=== PATIENT | female | born 1960 | race Caucasian/White ===

== ENCOUNTER 2019-08-30 09:34 | Outpatient (CLI) | payer BC, SELFPAY ==
--- NOTE | ~2019-08-30 | XR_ITS ---
EXAMINATION: XR lg joint inject/asp add DATE: 08/30/2019 11:02 INDICATION: Left hip arthritis. TECHNIQUE: A time-out was performed to verify the patient's name, date of , and procedure to b e performed. The procedure including the risks, benefits, and alternatives was discussed with the pat ient. Risks discussed included bleeding and infection. The patient understood the risks and agreed to proceed. The skin overlying the left hip joint was prepped and draped in usual sterile fashion. An esthetic was administered with 1% lidocaine subcutaneously. A 22 G needle was advanced under fluoros copic guidance into the joint. Injection of 1 mL of Omnipaque 240 confirmed intra-articular position of the needle. Subsequently, injectate consisting of 2 mL 0.5% bupivacaine and 1 mL 80 mg/mL Depo-M edrol was instilled. The needle was removed and the entry site was cleaned and dressed. There were no immediate complications. Fluoroscopy exposure time was 0.0 minutes. The total number of images was 2. FINDINGS: Real-time fluoroscopy demonstrates the needle in the left hip joint. Patient's pain prior t o procedure:11/27. Patient's pain following the procedure: 10/27. IMPRESSION: 1. Left hip joint injection of local anesthetic and steroid with decrease in the patient's presenting pain. Reviewed, dictated and finalized at location A. IMPRESSION: 1. Left hip joint injection of local anesthetic and steroid with decrease in th e patient's presenting pain.
--- NOTE | ~2019-08-30 | XR_ITS ---
EXAMINATION: XR lg joint inject/asp w image DATE: 08/30/2019 10:58 INDICATION: Right hip arthritis. TECHNIQUE: A time-out was performed to verify the patient's name, date of , and procedure to b e performed. The procedure including the risks, benefits, and alternatives was discussed with the pat ient. Risks discussed included bleeding and infection. The patient understood the risks and agreed to proceed. The skin overlying the right hip joint was prepped and draped in usual sterile fashion. A nesthetic was administered with 1% lidocaine subcutaneously. A 22 G needle was advanced under fluoro scopic guidance into the joint. Injection of 1 mL of Omnipaque 240 confirmed intra-articular positio n of the needle. Subsequently, injectate consisting of 2 mL 0.5% bupivacaine and 1 mL 80 mg/mL Depo- Medrol was instilled. The needle was removed and the entry site was cleaned and dressed. There were no immediate complications. Fluoroscopy exposure time was 0.0 minutes. The total number of images wa s 2. FINDINGS: Real-time fluoroscopy demonstrates the needle in the right hip joint. Patient's pain prior to procedure:8/10. Patient's pain following the procedure: 10/27. IMPRESSION: 1. Right hip joint injection of local anesthetic and steroid with decrease in the patient's presentin g pain. Reviewed, dictated and finalized at location A. IMPRESSION: 1. Right hip joint injection of local anesthetic and steroid with decrease in t he patient's presenting pain.
== END 2019-08-30 09:35 | disposition home or self-care (01) ==
PROVIDERS: PCP Family Medicine; Visit Provider Orthopaedic Surgery
DX: M16.0 Bilateral primary osteoarthritis of hip (principal)
CPT/HCPCS: 20610; 77002; J1040; Q9966

== ENCOUNTER 2019-12-04 13:08 | Outpatient (CLI) | payer BC, SELFPAY ==
--- NOTE | ~2019-12-04 | XR_ITS ---
EXAMINATION: XR lg joint inject/asp add DATE: 12/04/2019 14:11 INDICATION: Left hip arthritis. TECHNIQUE: A time-out was performed to verify the patient's name, date of , and procedure to b e performed. The procedure including the risks, benefits, and alternatives was discussed with the pat ient. Risks discussed included bleeding and infection. The patient understood the risks and agreed to proceed. The skin overlying the left hip joint was prepped and draped in usual sterile fashion. An esthetic was administered with 1% lidocaine subcutaneously. A 22 G needle was advanced under fluoros copic guidance into the joint. Injection of 1 mL of Omnipaque 240 confirmed intra-articular position of the needle. Subsequently, injectate consisting of 2 mL 0.5% bupivacaine and 1 mL 80 mg/mL Depo-M edrol was instilled. The needle was removed and the entry site was cleaned and dressed. There were no immediate complications. Fluoroscopy exposure time was 0.1 minutes. The total number of images was 2. FINDINGS: Real-time fluoroscopy demonstrates the needle in the left hip joint. IMPRESSION: 1. Left hip joint injection of local anesthetic and steroid. Reviewed, dictated and finalized at location A.
--- NOTE | ~2019-12-04 | XR_ITS ---
EXAMINATION: XR lg joint inject/asp w image DATE: 12/04/2019 14:10 INDICATION: Right hip arthritis. TECHNIQUE: A time-out was performed to verify the patient's name, date of , and procedure to b e performed. The procedure including the risks, benefits, and alternatives was discussed with the pat ient. Risks discussed included bleeding and infection. The patient understood the risks and agreed to proceed. The skin overlying the right hip joint was prepped and draped in usual sterile fashion. A nesthetic was administered with 1% lidocaine subcutaneously. A 22 G needle was advanced under fluoro scopic guidance into the joint. Injection of 1 mL of Omnipaque 240 confirmed intra-articular positio n of the needle. Subsequently, injectate consisting of 2 mL 0.5% bupivacaine and 1 mL 80 mg/mL Depo- Medrol was instilled. The needle was removed and the entry site was cleaned and dressed. There were no immediate complications. Fluoroscopy exposure time was 0.1 minutes. The total number of images wa s 1. FINDINGS: Real-time fluoroscopy demonstrates the needle in the right hip joint. Patient's pain prior to procedure:10/10. Patient's pain following the procedure: 0/10. IMPRESSION: 1. Right hip joint injection of local anesthetic and steroid with decrease in the patient's presentin g pain. Reviewed, dictated and finalized at location A. IMPRESSION: 1. Right hip joint injection of local anesthetic and steroid with decrease in t he patient's presenting pain.
== END 2019-12-04 13:09 | disposition home or self-care (01) ==
PROVIDERS: PCP Family Medicine; Visit Provider Orthopaedic Surgery
DX: M16.0 Bilateral primary osteoarthritis of hip (principal)
CPT/HCPCS: 20610; 77002; J1040; Q9966

== ENCOUNTER 2022-12-08 21:23 | Inpatient (IN) | payer BC, SELFPAY ==
[2022-12-08] VITALS (8 sets, daily range): BP systolic 128–159; BP diastolic 65–92; PULSE 116–139; RESP 22–29; O2SAT 92–100
--- NOTE | ~2022-12-08 | XR_ITS ---
EXAMINATION: XR chest 1V portable Exam Date/Time: 12/08/2022 22:10 CDT HISTORY: Dyspnea Comparison: 07/05/2019. RESULT: Lines, tubes, and devices: None. Lungs and pleura: Mild diffuse reticular opacities. Left lower lung scar. Cardiomediastinal silhouette: Stable cardiomegaly. Other: No acute osseous or upper abdominal finding. IMPRESSION: Mild interstitial edema. Reviewed, dictated and finalized at location K. IMPRESSION: Mild interstitial edema.
--- NOTE | 2022-12-08 21:43 | PC.NURSE ---
Dr. Nicole at bedside. ED respiratory called for BiPap
--- NOTE | 2022-12-08 21:49 | ECG_ITS ---
Measurements Intervals [place] Rate: 129 P: -53 W[place]: 117 QRS: -49 QRSD: 161 T: 70 QT: 338 QTc: 497 Interpretive Statements PROBABLE SINUS TACHYCARDIA LEFT BUNDLE-BRANCH BLOCK COMPARED TO ECG 07/05/2019 13:41:36 THE RATE IS FASTER Electronically Signed On 12-09-2022 13:20:41 CDT by Carito Ibarra M.D.
[2022-12-08 22:01] LABS: Hematocrit 44.5 % (37.0-47.0); Hemoglobin 14.1 g/dL (12.0-15.0); Mean Corpuscular HGB Conc 31.7 g/dl (32-36); Mean Corpuscular Hemoglobin 29.9 pg (26-34); Mean Corpuscular Volume 94.3 fl (80-100); Mean Platelet Volume 10.9 fl (7.4-10.4); Platelet Count Result 256 k/mm3 (150-375); Red Blood Count 4.72 M/mm3 (4.2-5.4); Red Cell Distribution Width 14.6 % (11.5-14.5); White Blood Count 20.3 K/mm3 (4.5-10.0)
[2022-12-08 22:11] LABS: Alanine Aminotransferase 31 U/L (6-35); Albumin Level 4.2 g/dL (3.5-5.1); Alkaline Phosphatase 84 U/L (38-126); Anion Gap 7 mmol/L (8-16); Aspartate Amino Transferase 27 U/L (14-36); Bilirubin,Total 0.9 mg/dL (0.2-1.3); Blood Urea Nitrogen 15 mg/dL (7-17); Calcium 8.8 mg/dL (8.4-10.2); Carbon Dioxide 31 mmol/L (22-30); Chloride 98 mmol/L (98-107); Estimated CRCL calculation 86 ml/min; Estimated Glomerular Filt Rate > 60; Glucose 144 mg/dL (65-110); Potassium 4.3 mmol/L (3.4-5.0); Sodium 136 mmol/L (137-145)
[2022-12-08 22:20] LABS: Band Neutrophils Percent 6 % (0-6); Lymphocytes Absolute Manual 1.62 K/mm3 (1.1-4.5); Monocytes Absolute Manual 1.42 K/mm3 (0.1-0.90); Monocytes Percent Manual 7 % (3-9); Neutrophils Absolute Manual 17.25 K/mm3 (1.7-7.2); Neutrophils Percent Manual 79 % (46-73); Platelet Estimate Adequate (Adequate); Schistocytes None Seen (NORMAL); Total Cells Counted 100
[2022-12-08 22:21] LABS: Hypochromasia 1+ (NORMAL)
[2022-12-08] MEDS: MAGNESIUM SULF 2 GM/WATER 50ML 2 GM/50 ML BAG IVPB (22:31)
[2022-12-08] MEDS: HYDROcodone/acetaminophen (*CRX) 5-325 MG TABLET 2 TAB PO (22:33)
[2022-12-08 22:51] LABS: Lipase 18 U/L (23-300); Magnesium 1.8 mg/dL (1.6-2.3)
[2022-12-08 22:53] LABS: INR 1.1; Lactic Acid Reflex 1.2 mmol/L (0.7-2.0); Prothrombin Time 14.4 Seconds (11.1-14.7)
[2022-12-08 22:54] LABS: Partial Thromboplastin Time 31.5 SECONDS (22.3-36.8)
[2022-12-08 23:09] LABS: Alveolar/Arterial O2 Gradient 119.6 mmHg; Base Excess ABG 3.7 mEq/l (+/-2.0); Fractional Inspired Oxygen 60 %; HCO3 ABG 30.5 mEq/l (22.0-26.0); Oxygen Content ABG 19.6 %vol (16.0-22.0); Oxygen Saturation ABG 99.5 % (95.0-100.0); Oxyhemoglobin 97.4 % THb (90.0-100.0); PCO2 ABG 55.3 mmHg (35.0-45.0); PO2 ABG 247.4 mmHg (80.0-100.0); PO2 FiO2 Ratio Arterial Blood 4.12 %; Total Hemoglobin 13.9 g/dL (12.0-18.0)
[2022-12-08 23:10] LABS: NT Pro B Type Natriuretic Pept 3980 pg/mL (19.9-100); Troponin I 0.126 ng/mL (0.000-0.034)
[2022-12-08 23:10] LABS: Device BIPAP; Expiratory Pressure 5 cmH2O; Inspiratory Pressure 15 cmH2O; Modified Allen's Test Pass; Site Drawn RIGHT RADIAL
--- NOTE | 2022-12-08 23:13 | PC.NURSE ---
Pts son/poa, Carlitos Cox wishes to be updated on pt status periodically. [phone].
[2022-12-08] MEDS: IPRATROPIUM BR 0.02% INH SOLN 0.5 MG/2.5 ML VIAL 1.5 MG INHALATION (23:16)
[2022-12-08] MEDS: ALBUTEROL SULFATE NEB 2.5 MG/3 ML INH 10 MG INHALATION (23:16)
[2022-12-08 23:24] LABS: Influenza A QL RT-PCR Negative (Negative); Influenza B QL RT-PCR Negative (Negative); RSV RNA, RT-PCR Negative (Negative); SARS-CoV-2 RNA PCR Negative (Negative)
[2022-12-08 23:32] LABS: Glucose Point of Care 136 mg/dl (65-105)
--- NOTE | 2022-12-08 23:49 | ED.GENADULT ---
HPI - General Adult General Chief complaint: Shortness of Breath/Dyspnea Stated complaint: short of breath Time Seen by Provider: 12/08/22 21:33 History of Present Illness HPI narrative: This is a 62-year-old female presenting ED with chief complaint of shortness of breath. Patient has a history of COPD and asthma. She says that her difficulty breathing has gotten progressively worse over last few weeks. She had taken course of doxycycline at home which improved her symptoms but then they got worse again. She is not sure she has had fevers but says that she has been diaphoretic at home. No nausea vomiting diarrhea chest pain or abdominal pain. Related Data Home Medications Medication Instructions Recorded Confirmed albuterol sulfate 90 mcg/actuation 2 puff inhalation QID PRN 07/05/19 07/05/19 aerosol inhaler (ProAir HFA) Shortness Of Breath bisoprolol fumarate 5 mg tablet 5 mg PO DAILY 07/05/19 07/05/19 budesonide-formoterol HFA 160 2 puff inhalation Q12H 07/05/19 07/05/19 mcg-4.5 mcg/actuation aerosol inhaler (Symbicort) fexofenadine 60 mg-pseudoephedrine 60 - 120 tablet PO DAILY 07/05/19 07/05/19 ER 120 mg tablet,ext.release,12 hr (Liz-D 12 Hour) furosemide 40 mg tablet (Lasix) 40 mg PO DAILY 07/05/19 07/05/19 irbesartan 75 mg tablet (Avapro) 75 mg PO DAILY 07/05/19 07/05/19 oxycodone-acetaminophen 10 mg-325 10 - 325 tablet PO QID 07/05/19 07/05/19 mg tablet potassium chloride 10 mEq 10 meq PO DAILY 07/05/19 07/05/19 tablet,extended release (K-Tab) Allergies Allergy/AdvReac Type Severity Reaction Status Date / Time shellfish derived Allergy Intermediate Hives Verified 02/04/20 13:49 cephalexin Allergy Mild HIVES Verified 02/04/20 13:49 adhesive tape Allergy Rash Verified 02/04/20 13:49 aspirin AdvReac Unknown STOMACH Verified 02/04/20 13:49 IRRITATION ibuprofen AdvReac Unknown STOMACH Verified 02/04/20 13:49 IRRITATION METAL Allergy Intermediate Unknown Uncoded 02/04/20 13:49 SHELLFISH Allergy Intermediate HIVES Uncoded 02/04/20 13:49 MULTIPLE ANTIBIOTICS Allergy Mild Unknown Uncoded 02/04/20 13:49 [facility] Past Medical History Medical History (Updated 12/09/22 @ 01:42 by Moises Nicole MD) Anxiety Arthritis Asthma Bipolar 1 disorder Bronchitis CHF (congestive heart failure), NYHA class I COPD (chronic obstructive pulmonary disease) Depression Family history of head, eyes, ears, nose, and throat (HEENT) problems Herniated disc HLD (hyperlipidemia) HTN (hypertension) Lumbar herniated disc Osteoporosis Bilateral hips but unable to have surgery due to her respiratory problems TIA (transient ischemic attack) Surgical History Surgical History H/O section H/O tubal ligation Hx of cholecystectomy Hx of tonsillectomy Family History Family History Father Diabetes mellitus Hypertension Heart disease Mother Metastatic cancer Other Family history of arthritis Family history of cardiovascular disease Family history of malignant neoplasm Social History Social History Social History: The patient has 1 son who is Carlitos and Carlitos is her durable power criminal defense attorney for healthcare. She wishes to be a full code. She is disabled. She is . She stated that she quit smoking on and off for many years and was down to just a few cigarettes a day. She stated she has not smoked a cigarette in 7 days. Smoking status: Former smoker Tobacco type: cigarettes Additional smoking assessment comments: Pt states she quit smoking 7 days ago. Alcohol intake: never Substance use: never Living arrangements: alone Occupation/Education: other Gender identity (if verbalized by the patient): Female Spiritual care concerns: No Agree to blood products: Yes Exam Narrative: APPEARANCE: Pat
[2022-12-09] VITALS (20 sets, daily range): BP systolic 107–180; BP diastolic 55–90; PULSE 64–115; RESP 18–25; TEMP 36.4–37; O2SAT 94–100; BMI 40.1
--- NOTE | 2022-12-09 | ECHO_ITS ---
Patient Info Name: Louise Cox Age: 62 years : 1960 Gender: Female Ht: 64 in Wt: 230 lbs BSA: 2.22 m2 HR: 97 bpm BP: 137 / 69 mmHg Heart Rhythm: Sinus Rhythm Technical Quality: Poor Exam Date: 12/09/2022 10:54 AM Exam Location: [facility] Patient Status: Inpatient Admit Date: 12/09/2022 Staff Ordering Physician: Lucinda Birmingham MD Parts Counter Sales Person: Rakesh Farmer RDCS Attending Provider: Kulwinder Louis MD Referring Physician: Vinnie LR; Exam Type: CA echo dop color flow w con Study Info Indications - ABN EKG Complete two-dimensional, color flow and Doppler transthoracic echocardiogram is performed. Reason for Poor Study: poor echocardiographic windows Summary 1. Complete two-dimensional, color flow and Doppler transthoracic echocardiogram is performed. 2. Left ventricular chamber dimension is moderately enlarged. 3. Left ventricular systolic function is severely reduced, estimated at 20-25%. 4. There is mildly increased left ventricular wall thickness. 5. Left ventricular septal wall motion is abnormal with septal motion related to bundle branch block. 6. There is hypokinesis of the inferoseptum, anteroseptum, mid anterior and mid inferior louise. 7. Right ventricular systolic function is normal. 8. There is trace mitral valve regurgitation. 9. There is trace tricuspid valve regurgitation. 10. There is trivial pericardial effusion. Left Ventricle There is hypokinesis of the inferoseptum, anteroseptum, mid anterior and mid inferior louise. Left ventricular chamber dimension is moderately enlarged. Left ventricular systolic function is severely reduced, estimated at 20-25%. There is mildly increased left ventricular wall thickness. Left ventricular septal wall motion is abnormal with septal motion related to bundle branch block. Right Ventricle Right ventricular chamber dimension is normal. Right ventricular systolic function is normal. Left Atria Left atrial chamber dimension is normal. Right Atria Right atrial chamber dimension is normal. Atrial Septum Intact interatrial septum visualized by color flow imaging. Aortic Valve The aortic valve is not well visualized. There is mild aortic valve sclerosis. There is no aortic valve stenosis. There is no aortic valve regurgitation. Pulmonic Valve The pulmonic valve is not well visualized. Mitral Valve The mitral valve has thickened leaflets. There is trace mitral valve regurgitation. Tricuspid Valve There is trace tricuspid valve regurgitation. Pericardium/Pleural The pericardium appears epicardial fat pad. There is trivial pericardial effusion. Inferior Vena Cava Normal inferior vena cava with <50% collapse upon inspiration consistent with elevated right atrial pressure, 8 mmHg. Aorta The aortic root size at the sinus of Valsalva is normal. Left Ventricular Outflow Tract Name Value Normal LVOT 2D LVOT Diameter 2.00 cm LVOT Doppler LVOT Peak Gradient 3 mmHg LVOT Mean Gradient 1 mmHg LVOT VTI 11.50 cm LVOT VTI/AV VTI Ratio 0.56 LVOT Stroke Volume 36
--- NOTE | 2022-12-09 01:02 | PC.NURSE ---
Attempted to straight cath pt and she refused. Other methods of voiding were encouraged by this RN including bedpan and commode and all were refused.
--- NOTE | 2022-12-09 01:13 | PM.IMHP ---
H&P: HPI History of Present Illness Date/Time: 12/09/22 01:13 Chief Complaint: Shortness of breath for 1 week Narrative: Patient is a 62-year-old female, morbidly obese, with past medical history of COPD not on home oxygen, possible CHF coming in for shortness of breath for over 1 week. Patient says that she started having some shortness of breath since last week. She called her primary care doctor who prescribed her some doxycycline which she has finished already. She said she has some skin condition and some breathing problems and takes prednisone on a regular basis 10 mg usually which she has been trying to decrease to 5 mg only. She said that she increase her dose back to 10 mg because of worsening shortness of breath. She said that she has very poor exercise tolerance and is only able to walk a few steps before she gets short of breath. She said she was told in the past that she has a weak heart but she is unable to say exactly what her ejection fraction is. She said she had abnormal testing of her heart in the past for which she had an angiogram may be around 2014. She said there were no blockages at that time and no stents were placed. She denies any history of diabetes. 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 She lives with a roommate but her son lives nearby. She does not want to be intubated or resuscitated and placed and a ventilator. She denies any history of fever, nausea or vomiting. No dysuria or diarrhea. Review of Systems Review of Systems: no fever or weight loss no vision changes, no eye discharge no throat pain, no hoarseness, no lymphadenopathy no chest pain, no palpitations Minimal coughing, no wheezing no abdominal pain, no diarrhea, no nausea, no vomiting no dysuria, no vaginal discharge no leg swelling, no edema no suicidal or homicidal ideation [facility] Past Medical History Medical History (Updated 12/09/22 @ 01:21 by Lucinda Birmingham MD) Anxiety Arthritis Asthma Bipolar 1 disorder Bronchitis CHF (congestive heart failure), NYHA class I COPD (chronic obstructive pulmonary disease) Depression Family history of head, eyes, ears, nose, and throat (HEENT) problems Herniated disc HLD (hyperlipidemia) HTN (hypertension) Lumbar herniated disc Osteoporosis Bilateral hips but unable to have surgery due to her respiratory problems TIA (transient ischemic attack) Surgical History Surgical History H/O section H/O tubal ligation Hx of cholecystectomy Hx of tonsillectomy Family History Family History Father Diabetes mellitus Hypertension Heart disease Mother Metastatic cancer Other Family history of arthritis Family history of cardiovascular disease Family history of malignant neoplasm Social History Social History Social History: The patient has 1 son who is Carlitos and aCrlitos is her durable power patent prosecution attorney for healthcare. She wishes to be a full code. She is disabled. She is . She stated that she quit smoking on and off for many years and was down to just a few cigarettes a day. She stated she has not smoked a cigarette in 7 days. Smoking status: Former smoker Tobacco type: cigarettes Additional smoking assessment comments: Pt states she quit smoking 7 days ago. Alcohol intake: never Substance use: never Living arrangements: alone Occupation/Education: other Gender identity (if verbalized by the patient): Female Spiritual care concerns: No Agree to blood products: Yes Meds Home Medications and Allergies Home Medications Medication Instructions Recorded Confirmed Type albuterol sulfate 90 mcg/actuation 2 puff inhalation QID PRN 07/05/19 07/05/19 History aerosol inhale
[2022-12-09 01:47] LABS: Anion Gap 8 mmol/L (8-16); Blood Urea Nitrogen 15 mg/dL (7-17); Carbon Dioxide 28 mmol/L (22-30); Chloride 98 mmol/L (98-107); Estimated CRCL calculation 76 ml/min; Estimated Glomerular Filt Rate > 60; Glucose 162 mg/dL (65-110); Magnesium 7.8 mg/dL (1.6-2.3); Potassium 4.2 mmol/L (3.4-5.0); Sodium 134 mmol/L (137-145)
[2022-12-09 01:51] LABS: Troponin I 0.116 ng/mL (0.000-0.034)
[2022-12-09] MEDS: levoFLOXacin 750 MG/D5W 150 ML 750 MG/150 ML BAG 100 MG IVPB ×2 (02:02→21:22)
[2022-12-09] MEDS: ENOXAPARIN 100 MG/ML SYRINGE SUB-Q (02:03)
[2022-12-09 03:22] LABS: Appearance Urine Cloudy (Clear); Bacteria Urine None Seen /hpf; Bilirubin Urine 1+ (Negative); Blood Urine Negative (Negative); Color Urine Dark Yellow (Yellow); Glucose Urine UA Negative (Negative); Ketones Urine Trace mg/dL (Negative); Leukocyte Esterase Ur Negative LEU/UL (Negative); Need Manual Microscopic Reviewed; Nitrate Urine Negative (Negative); Non Pathogenic Casts >20; Protein Urine 2+ mg/dL (Negative); RBC Urine 0-2 /hpf (0-2); Specific Grav Ur 1.026 (1.001-1.035); Squamous Epithelial Cell Urine Few /hpf (Few); WBC Urine 0-5 /hpf
--- NOTE | 2022-12-09 03:24 | ADMGEN ---
This patient, Louise Cox, was admitted to Intensive Care Unit-5. Patient/family oriented to hospital policies and general routines including ID bracelet, bed and alarms, visiting hours, pain management, procedures, bathroom and other care routines, personal items, smoking policy, room service/diet, and visiting hours. Information on how to activate the Rapid Response Team has been discussed. Patient/Family are encouraged to report perceived risks to care and to ask questions if they do not understand what they are told or what they should do.
[2022-12-09 03:28] LABS: Add Urine Microscopic? YES
[2022-12-09] MEDS: VANCOMYCIN 1,250 MG/NS 250 ML 1,250 MG/250 ML BAG 166.67 MG IVPB ×2 (03:54→04:02)
[2022-12-09 04:05] LABS: Basophils Percent Auto 0.2 % (0.2-1.2); Hematocrit 39.8 % (37.0-47.0); Hemoglobin 12.4 g/dL (12.0-15.0); Immature Granulocyte Absolute 0.13 K/mm3 (0.00-0.031); Immature Granulocyte Percent A 0.7 % (0-0.5); Lymphocytes Absolute Auto 0.33 K/mm3 (0.9-3.2); Lymphocytes Percent Auto 1.9 % (18.3-44.2); Mean Corpuscular HGB Conc 31.2 g/dl (32-36); Mean Corpuscular Hemoglobin 29.7 pg (26-34); Mean Corpuscular Volume 95.4 fl (80-100); Mean Platelet Volume 10.9 fl (7.4-10.4); Monocytes Absolute Auto 0.4 K/mm3 (0.1-0.6); Monocytes Percent Auto 2.1 % (2.6-8.5); Neutrophils Absolute Auto 16.5 K/mm3 (1.3-6.7); Neutrophils Percent Auto 95.1 % (45.5-73.1); Platelet Count Result 204 k/mm3 (150-375); Red Blood Count 4.17 M/mm3 (4.2-5.4); Red Cell Distribution Width 14.4 % (11.5-14.5); White Blood Count 17.4 K/mm3 (4.5-10.0)
[2022-12-09] MEDS: ALBUTEROL SULFATE NEB 2.5 MG/3 ML INH INHALATION ×4 (04:50→21:50)
[2022-12-09] MEDS: oxyCODONE/ACETAMINOPHEN (*CRX) 10-325 MG TABLET 1 TAB PO ×3 (05:05→22:45)
[2022-12-09 05:08] LABS: Hemoglobin A1C 5.9 % (<5.7)
[2022-12-09 05:28] LABS: Free T4 Free Thyroxine 1.68 ng/mL (0.78-2.19)
[2022-12-09] MEDS: POTASSIUM CHLORIDE 20 MEQ PACKET (FOR LIQUID) 40 MEQ PO (08:59)
[2022-12-09] MEDS: IRBESARTAN 75 MG TABLET PO (08:59)
[2022-12-09] MEDS: FUROSEMIDE INJ 40 MG/4 ML VIAL IV PUSH (08:59)
[2022-12-09 10:23] LABS: Troponin I 0.065 ng/mL (0.000-0.034)
[2022-12-09] MEDS: predniSONE 20 MG TABLET 40 MG PO (10:28)
--- NOTE | 2022-12-09 10:46 | PM.CNCAR ---
Assessment and Plan Assessment and plan (1) Acute on chronic systolic CHF (congestive heart failure): Code(s): I50.23 - Acute on chronic systolic (congestive) heart failure Status: Acute Assessment and Plan: Mild exacerbation of acute on chronic diastolic heart failure, probably aggravated by her COPD exacerbation, pneumonia and noncompliance with furosemide and CHF follow-up. REc'd IV furosemide on admission. --currently taking furosemide 40 mg b.i.d., which the patient objects to because of urinary incontinence. Continue diuresis for now; explained rationale to the patient. --a.m. BMP (2) Nonischemic cardiomyopathy: Code(s): I42.8 - Other cardiomyopathies Status: Acute Assessment and Plan: Diagnosed in 2014. Taking minimal therapy for her CHF with just bisoprolol and minimal dose of irbesartan. Extensive discussion with the patient regarding current optimal treatment for cardiomyopathy and heart failure. --Bisoprolol on hold due to asthma exacerbation; resume soon. --Cont irbesartan, titrate as BP tolerates --discussed the use of spironolactone; patient agreed to try it. Not happy that it may have a diuretic effect, though I explained that this was very mild. Reduce Kcl. --discussed the use of an SGLT 2 inhibitor. Reviewed risks and benefits. Patient agreed to try it. --Perhaps try a longer-slower acting diuretic such as amiloride, since she is not very compliant w/ furosemide. Or perhaps the mild diuretic effects of Jardiance and spironolactone will suffice to keep the furosemide to a minimum. --Echo pending (3) LBBB (left bundle branch block): Code(s): I44.7 - Left bundle-branch block, unspecified Status: Acute Assessment and Plan: Chronic LBBB. If the patient follows up in the office we may discuss placing a Bi V pacemaker. She has already declined ICD. She has has problems w/ noncompliance and poor FU. (4) Elevated troponin: Code(s): R77.8 - Other specified abnormalities of plasma proteins Status: Acute Assessment and Plan: Minimally elevated troponin, with no chest pain and a known nonischemic cardiomyopathy. No further evaluation needed. --reduce Lovenox to DVT prophylaxis dose (5) Community acquired pneumonia: Qualifiers: Laterality: left Lung location: unspecified part of lung Qualified Code(s): J18.9 - Pneumonia, unspecified organism Code(s): J18.9 - Pneumonia, unspecified organism Status: Acute Assessment and Plan: Treatment per hospitalist. (6) Acute exacerbation of chronic obstructive airways disease: Code(s): J44.1 - Chronic obstructive pulmonary disease with (acute) exacerbation Status: Acute Assessment and Plan: Treatment per hospitalist. Tobacco use. (7) HTN (hypertension): Qualifiers: Hypertension type: essential hypertension Qualified Code(s): I10 - Essential (primary) hypertension Code(s): I10 - Essential (primary) hypertension Status: Chronic Assessment and Plan: Running high, medications being adjusted (8) History of stroke: Code(s): Z86.73 - Personal history of transient ischemic attack (TIA), and cerebral infarction without residual deficits Status: Acute Assessment and Plan: Apparent history of stroke. Patient would benefit from anti-platelet therapy but apparently has intolerance to aspirin. --discuss the use of clopidogrel and statin therapy at a later time History of Present Illness History of Present Illness Consult date/time: 12/09/22 10:46 Reason For Visit: Respiratory Failure Narrative: Louise Heard is a 62-year-old female whom we were asked to see at the request of Dr. Kulwinder Louis for advice and opinion regarding her elevated troponins, in consultation. Patient has been followed intermittently by Dr. Sterling for her nonischemic cardiomyopathy which was diagnosed in 2014, and was last s
[2022-12-09] MEDS: UMECLIDINIUM BROMIDE 62.5 MCG ELLIPTA 1 PUFF INHALATION (11:54)
--- NOTE | 2022-12-09 13:26 | P.PNCROSS_ITS ---
Event Note Event Note Event Note: patient admitted after midnight. Admitted with acute respiratory failure like ly secondary to COPD exacerbation with a combination of CHF exacerbation. Echo done, report pending. Continue BiPAP. Patient consult on BiPAP compliance. CO2 still high. continue steroids orally. Continue Levaquin. Continue Lasix. Patient does not want IV Lasix. Will change to p.o. Lasix b.i.d.. Discontinue vancomycin since there is no evidence of pneumonia.
[2022-12-09] MEDS: PERFLUTREN LIPID MICROSPHERES 1.5 ML VIAL DILUTED TO 10 ML TOTAL VOLUME IV PUSH (14:40)
[2022-12-09] MEDS: FUROSEMIDE 40 MG TABLET PO (17:05)
[2022-12-09] MEDS: POTASSIUM CHLORIDE 20 MEQ ER TABLET PO (17:10)
--- NOTE | 2022-12-09 18:15 | PC.NURSE ---
This patient, Louise Cox, was transferred to [[id number]] on 12/09/22 at 1815. Personal belongings sent with patient. Report given to [Windy KEARNEY]. Appropriate documentation sent with patient.
[2022-12-09] MEDS: ENOXAPARIN 40 MG/0.4 ML SYRINGE SUB-Q (21:21)
[2022-12-10] VITALS (19 sets, daily range): BP systolic 121–134; BP diastolic 53–61; PULSE 90–111; RESP 16–24; TEMP 36.1–36.7; O2SAT 90–99
[2022-12-10] MEDS: ALBUTEROL SULFATE NEB 2.5 MG/3 ML INH INHALATION ×5 (00:01→21:00)
[2022-12-10 04:32] LABS: Anion Gap 4 mmol/L (8-16); Blood Urea Nitrogen 24 mg/dL (7-17); Calcium 8.3 mg/dL (8.4-10.2); Carbon Dioxide 35 mmol/L (22-30); Chloride 98 mmol/L (98-107); Estimated CRCL calculation 88 ml/min; Estimated Glomerular Filt Rate > 60; Glucose 112 mg/dL (65-110); Sodium 137 mmol/L (137-145)
[2022-12-10] MEDS: oxyCODONE/ACETAMINOPHEN (*CRX) 10-325 MG TABLET 1 TAB PO ×2 (06:39→17:28)
[2022-12-10] MEDS: UMECLIDINIUM BROMIDE 62.5 MCG ELLIPTA 1 PUFF INHALATION (08:44)
[2022-12-10] MEDS: predniSONE 20 MG TABLET 40 MG PO (09:11)
[2022-12-10] MEDS: EMPAGLIFLOZIN 10 MG TABLET PO (09:12)
[2022-12-10] MEDS: IRBESARTAN 75 MG TABLET PO (09:12)
[2022-12-10] MEDS: SPIRONOLACTONE 25 MG TABLET PO (09:12)
[2022-12-10] MEDS: FUROSEMIDE 40 MG TABLET PO ×2 (09:12→17:28)
[2022-12-10] MEDS: bisoproloL fumarate 5 MG TABLET PO (09:12)
[2022-12-10] MEDS: ENOXAPARIN 40 MG/0.4 ML SYRINGE SUB-Q (09:13)
--- NOTE | 2022-12-10 09:56 | PM.IMPN ---
Progress Note: A&P Assessment and Plan (1) Acute exacerbation of chronic obstructive airways disease: Code(s): J44.1 - Chronic obstructive pulmonary disease with (acute) exacerbation Status: Acute Assessment and Plan: Patient with history of COPD, not on home oxygen, She was empirically started on doxycycline and has been taking prednisone 10 mg at home. Patient was given continuous nebulizations in the ER and was placed on oxygen supplementation including BiPAP support. -Will continue steroids and Levaquin (2) CHF (congestive heart failure), NYHA class I: Qualifiers: Congestive heart failure type: systolic Congestive heart failure chronicity: chronic Qualified Code(s): I50.22 - Chronic systolic (congestive) heart failure Code(s): I50.9 - Heart failure, unspecified Status: Acute Assessment and Plan: Currently her BNP is elevated to over 3900 and her imaging shows some interstitial edema. Patient likely has CHF exacerbation. - echo shows decreased ejection fraction, global hypokinesia. - cardiology has been consulted. Will wait for further recommendations -will continue Lasix -patient's home medications include bisoprolol, Lasix, irbesartan to be continued -monitor BMP and replace electrolytes as needed (3) Noncompliance with medication regimen: Code(s): Z91.148 - Patient's other noncompliance with medication regimen for other reason Status: Acute Assessment and Plan: patient has been counseled on medication compliance. Had an extensive discussion yesterday Subjective Date/time seen: 12/10/22 09:56 Interval history: patient states she feels much better today. She has no chest pain. Shortness of breath is better Review of Systems Constitutional: Constitutional: Denies fever(s) Eyes: Eyes: Reports no additional eye complaints ENT: Reports nasal congestion and Reports nasal discharge Cardiovascular: Cardiovascular: Denies chest pain, Reports pedal edema, Reports leg edema, Denies lightheadedness, Reports palpitations (was in sinus tach on admission) and Reports dyspnea Respiratory: Respiratory: Reports chest congestion, Reports cough, Reports dyspnea, Reports dyspnea on exertion and Reports wheezing Gastrointestinal: Gastrointestinal: Denies abdominal pain and Denies hematochezia Genitourinary: Genitourinary: Reports nocturia, Reports urinary incontinence and Reports urinary urgency Musculoskeletal: Musculoskeletal: Reports back pain and Reports arthralgias Integumentary/Breasts: Skin/Breast: Reports system reviewed and no additional complaints, except as docu Neurologic: Reports system reviewed and no additional complaints, except as documented and Denies behavioral changes Comments: No syncope Psychiatric: Psychiatric: Denies behavioral changes Exam Const: General: cooperative and uncomfortable; No healthy appearing, comfortable or confusion Orientation/consciousness: oriented to person, patient oriented x3 and No confusion HENMT: Mouth: Yes moist mucous membranes Eyes: General: appearance normal, both eyes and all related structures Neck: Neck: supple and no JVD (Unable to evaluate for JVD due to obesity) Thyroid: thyroid normal Carotids: no bruits Resp: Effort & Inspection: normal respiratory effort Auscultation: rales (Rales in bases) Cardio: Rate: regular rate Rhythm: regular rhythm Heart sounds: no murmurs Other: Distant heart sounds GI: Inspection: normal to inspection GI Palp: No abdominal tenderness Skin: General skin exam: normal color and no rashes or lesions noted Neuro: General: oriented to person, patient oriented x3 and No confusion Extrem: Right lower extremity: edema Left lower extremity: edema Other: Trace to mild pretibial edema, intact pedal pulse Psych: Appearance: grossly normal Mental Status: mental status grossly normal Objective Data Vital Signs Vital Signs: Vital S
--- NOTE | 2022-12-10 10:58 | PM.PNCARD ---
Progress Note: A&P Assessment and Plan (1) Nonischemic cardiomyopathy: Code(s): I42.8 - Other cardiomyopathies Status: Acute Plan 62-year-old patient with severe nonischemic cardiomyopathy as well as underlying COPD and morbid obesity. At the moment she is not significantly volume overloaded. She would benefit from transitioning her ARB to Entresto. Will have case workers look into her [id number] cost for this before I make this transition. The hospitalist approach me earlier as to whether not the patient to undergo catheterization. As I mentioned above this was performed in 2014 at the time of her initial diagnosis and it has therefore been established this is a severe nonischemic cardiomyopathy, catheterization does not need to be repeated. In addition to this she has DNR orders and has declined ICD there is nothing other than conservative medical therapy to be offered at this time. I will transition her to Entresto if it is found to be affordable. Carlitos Sterling MD [facility] Subjective Date/time seen: Date of service:12/10/22 10:58 Interval history: Follow-up visit in this 62-year-old patient with: Nonischemic cardiomyopathy with low ejection fraction. The patient is enters the hospital with shortness of breath has this diagnosis +significant underlying COPD and morbid obesity. At the time of diagnosis in 08/09/2014 patient did undergo left heart catheterization which demonstrated very low ejection fraction and no coronary disease. This is in the records for review. She is seated at the side of her bed today still has some mild conversational dyspnea otherwise not any distress. Exam Const: General: uncomfortable Other: Morbidly obese white female does have some conversational dyspnea otherwise relatively stable HENMT: Mouth: Yes moist mucous membranes Eyes: Sclera: sclerae normal Neck: Neck: supple Other: very difficult to assess JVD given her obesity no obvious venous distention Resp: Auscultation: diminished lung sounds Other: patient has very scant pulmonary rales no wheezing Cardio: Rate: regular rate Rhythm: regular rhythm Other: PMI is not palpable 3rd heart sound is audible GI: GI Palp: Yes Soft to palpation Auscultation: normal bowel sounds Skin: General skin exam: normal color Neuro: Other: alert and oriented x3 Extrem: Other: no edema, Objective Data Vital Signs Vital Signs: Vital Signs - 24 hr 12/09/22 11:46 12/09/22 11:55 12/09/22 12:00 Temperature Pulse Rate 100 98 Respiratory Rate 22 H 21 H Blood Pressure Pulse Oximetry 94 Oxygen Delivery Nasal Cannula Oxygen Flow Rate 2 12/09/22 16:42 12/09/22 16:55 12/09/22 16:00 Temperature 36.6 C Pulse Rate 101 H 103 H 64 Respiratory Rate 20 20 22 H Blood Pressure 141/90 H Pulse Oximetry 96 Oxygen Delivery Oxygen Flow Rate 12/09/22 19:49 12/09/22 21:53 12/09/22 21:57 Temperature 36.4 C L Pulse Rate 111 H 106 H 103 H Respiratory Rate 18 20 20 Blood Pressure 139/58 L Pulse Oximetry 95 Oxygen Delivery Oxygen Flow Rate 12/10/22 00:02 12/09/22 22:00 12/10/22 00:08 Temperature Pulse Rate 107 H 104 H Respiratory Rate 20 20 Blood Pressure Pulse Oximetry 94 Oxygen Delivery Nasal Cannula Oxygen Flow Rate 1 12/09/22 23:55 12/10/22 06:29 12/10/22 08:35 Temperature 36.6 C Pulse Rate 110 H 90 111 H Respiratory Rate 24 H 18 Blood Pressure 130/61 Pulse Oximetry 98 97 98 Oxygen Delivery BiPAP Nasal Cannula Oxygen Flow Rate 1 12/10/22 08:35 12/10/22 08:45 12/10/22 09:12 Temperature Pulse Rate 111 H 105 H 106 H Respiratory Rate 20 20 Blood Pressure Pulse Oximetry Oxygen Delivery Oxygen Flow Rate 12/10/22 08:00 Temperature Pulse Rate Respiratory Rate Blood Pressure Pulse Oximetry 93 Oxygen Delivery Nasal Cannula Oxygen Flow Rate 1 Intake/Output Inta
[2022-12-10] MEDS: levoFLOXacin 750 MG/D5W 150 ML 750 MG/150 ML BAG 100 MG IVPB (20:33)
[2022-12-11] VITALS (17 sets, daily range): BP systolic 121–139; BP diastolic 45–72; PULSE 80–112; RESP 14–20; TEMP 35.8–36.4; O2SAT 90–95
[2022-12-11] MEDS: ALBUTEROL SULFATE NEB 2.5 MG/3 ML INH INHALATION ×6 (01:58→21:24)
[2022-12-11] MEDS: oxyCODONE/ACETAMINOPHEN (*CRX) 10-325 MG TABLET 1 TAB PO ×2 (05:56→20:29)
[2022-12-11 06:30] LABS: Blood Urea Nitrogen 29 mg/dL (7-17); Calcium 8.9 mg/dL (8.4-10.2); Carbon Dioxide > 40 mmol/L (22-30); Chloride 94 mmol/L (98-107); Estimated CRCL calculation 72 ml/min; Estimated Glomerular Filt Rate > 60; Glucose 91 mg/dL (65-110); Potassium 4.2 mmol/L (3.4-5.0); Sodium 136 mmol/L (137-145)
[2022-12-11 07:01] LABS: Vitamin D 25 Hydroxy 22.7 ng/mL
[2022-12-11] MEDS: UMECLIDINIUM BROMIDE 62.5 MCG ELLIPTA 1 PUFF INHALATION (08:49)
[2022-12-11] MEDS: CYANOCOBALAMIN INJ 1,000 MCG/ML VIAL 1000 MCG IM (09:28)
[2022-12-11] MEDS: IRBESARTAN 75 MG TABLET PO (09:29)
[2022-12-11] MEDS: POTASSIUM CHLORIDE 20 MEQ ER TABLET PO (09:29)
[2022-12-11] MEDS: SPIRONOLACTONE 25 MG TABLET PO (09:30)
[2022-12-11] MEDS: predniSONE 20 MG TABLET 40 MG PO (09:30)
[2022-12-11] MEDS: FUROSEMIDE 40 MG TABLET PO ×2 (09:30→17:19)
[2022-12-11] MEDS: EMPAGLIFLOZIN 10 MG TABLET PO (09:30)
[2022-12-11] MEDS: bisoproloL fumarate 5 MG TABLET PO (09:31)
[2022-12-11] MEDS: CYANOCOBALAMIN 1,000 MCG TABLET 1000 MCG PO (10:15)
[2022-12-11] MEDS: FOLIC ACID 1 MG TABLET PO (10:15)
--- NOTE | 2022-12-11 11:50 | PCOTNOTE ---
Attempted occupational therapy evaluation at 11:48, patient refused stating that a medication that she took wiped her out and she only wants to lay down. Will follow.
--- NOTE | 2022-12-11 14:31 | PM.IMPN ---
Progress Note: A&P Assessment and Plan (1) Acute exacerbation of chronic obstructive airways disease: Code(s): J44.1 - Chronic obstructive pulmonary disease with (acute) exacerbation Status: Acute Assessment and Plan: Patient with history of COPD, not on home oxygen, She was empirically started on doxycycline and has been taking prednisone 10 mg at home. Patient was given continuous nebulizations in the ER and was placed on oxygen supplementation including BiPAP support. Continue steroids and Levaquin for 5 days through 12/14/24 (receiving Levaquin in the PM) (2) CHF (congestive heart failure), NYHA class I: Qualifiers: Congestive heart failure type: systolic Congestive heart failure chronicity: chronic Qualified Code(s): I50.22 - Chronic systolic (congestive) heart failure Code(s): I50.9 - Heart failure, unspecified Status: Acute Assessment and Plan: Currently her BNP is elevated to over 3900 and her imaging shows some interstitial edema. Patient likely has CHF exacerbation. - echo shows decreased ejection fraction, global hypokinesia. - cardiology has been consulted. Will wait for further recommendations -will continue Lasix -patient's home medications include bisoprolol, Lasix, irbesartan to be continued -Due to intolerance to spironolactone, switch to eplerenone as outpatient (not on formulary here) Subjective Date/time seen: 12/11/22 14:31 Interval history: Admitted with increased sob, copd exacerbation, hx nonischemic cardiomyopathy. Was feeling much better yesterday. However today is feeling worse after taking spironolactone. States it always does this to her. Last took it a few years ago. Makes her feel achy and tired and lightheaded. Wishes to switch to another medication in that class. Review of Systems Review of Systems: All systems reviewed & are unremarkable except as noted in HPI and below Exam Narrative: general- awake, alert, oriented, minimal distress, morbidly obese, able to talk in full sentences heent- perrl, no nystagmus, no throat swelling, no dicharge chest-distant breath sounds, no wheezes, crackles heart- s1, s2, tachycardic rate and rhythm, no gallops or murmurs abdomen- soft, bowel sounds heard, no rebound or tenderness extremities- no edema or cyanosis neuro- CN symmetric to visual inspection Objective Data Vital Signs Vital Signs: Vital Signs - 24 hr 12/10/22 15:48 12/10/22 15:56 12/10/22 16:00 Temperature 98.0 F Pulse Rate 106 H 96 97 Respiratory Rate 20 20 16 Blood Pressure 134/54 L Pulse Oximetry 90 Oxygen Delivery Fraction of Inspired Oxygen 12/10/22 20:00 12/10/22 21:04 12/10/22 21:15 Temperature Pulse Rate 97 109 H 109 H Respiratory Rate 16 21 H 21 H Blood Pressure Pulse Oximetry 90 Oxygen Delivery Room Air Fraction of Inspired Oxygen 12/10/22 21:33 12/10/22 22:00 12/10/22 23:02 Temperature 96.9 F L Pulse Rate 99 90 Respiratory Rate 22 H 24 H Blood Pressure 121/53 L Pulse Oximetry 91 93 99 Oxygen Delivery Room Air BiPAP Fraction of Inspired Oxygen 12/11/22 02:02 12/11/22 02:05 12/11/22 05:32 Temperature Pulse Rate 90 93 82 Respiratory Rate Blood Pressure Pulse Oximetry Oxygen Delivery Fraction of Inspired Oxygen 12/11/22 05:38 12/11/22 06:00 12/11/22 09:31 Temperature 96.5 F L Pulse Rate 80 96 92 Respiratory Rate 18 Blood Pressure 139/59 L Pulse Oximetry 90 Oxygen Delivery Fraction of Inspired Oxygen 12/11/22 08:50 12/11/22 08:50 12/11/22 09:00 Temperature Pulse Rate 112 H 112 H 110 H Respiratory Rate 20 Blood Pressure Pulse Oximetry 91 Oxygen Delivery Room Air Fraction of Inspired Oxygen 12/11/22 11:26 12/11/22 11:31 12/11/22 09:30 Temperature Pulse Rate 98 98 Respiratory Rate 20 20 Blood Pressure Pulse Oximetry 92 Oxygen Delivery [facility] Air [facility]
[2022-12-11] MEDS: levoFLOXacin 750 MG/D5W 150 ML 750 MG/150 ML BAG 100 MG IVPB (20:22)
[2022-12-12] VITALS (10 sets, daily range): BP systolic 101–110; BP diastolic 59–87; PULSE 79–107; RESP 14–20; TEMP 36.1–36.4; O2SAT 90–95
[2022-12-12] MEDS: ALBUTEROL SULFATE NEB 2.5 MG/3 ML INH INHALATION ×4 (00:12→10:56)
[2022-12-12] MEDS: oxyCODONE/ACETAMINOPHEN (*CRX) 10-325 MG TABLET 1 TAB PO ×2 (04:35→13:12)
[2022-12-12] MEDS: UMECLIDINIUM BROMIDE 62.5 MCG ELLIPTA 1 PUFF INHALATION (06:53)
[2022-12-12] MEDS: POTASSIUM CHLORIDE 20 MEQ ER TABLET PO (08:24)
[2022-12-12] MEDS: predniSONE 20 MG TABLET 40 MG PO (08:24)
[2022-12-12] MEDS: bisoproloL fumarate 5 MG TABLET PO (08:25)
[2022-12-12] MEDS: FOLIC ACID 1 MG TABLET PO (08:27)
[2022-12-12] MEDS: FUROSEMIDE 40 MG TABLET PO (08:27)
[2022-12-12] MEDS: CYANOCOBALAMIN 1,000 MCG TABLET 1000 MCG PO (08:27)
[2022-12-12] MEDS: EMPAGLIFLOZIN 10 MG TABLET PO (08:27)
[2022-12-12] MEDS: IRBESARTAN 75 MG TABLET PO (08:28)
--- NOTE | 2022-12-12 09:25 | PM.PNCARD ---
Progress Note: A&P Assessment and Plan (1) Noncompliance with medication regimen: Code(s): Z91.148 - Patient's other noncompliance with medication regimen for other reason Status: Acute (2) Nonischemic cardiomyopathy: Code(s): I42.8 - Other cardiomyopathies Status: Acute Plan 62-year-old lady with well-documented nonischemic cardiomyopathy on relatively minimal medical therapy. In my opinion she claims intolerance to a variety of medications with no pharmacologic similarity but reports to be extremely weak if she takes spironolactone or any other beta-carlos other than bisoprolol. The case technician did investigate Entresto it is not affordable for this patient. The hospitalist service suggested the possibility of trying Eplerenone. This is also reasonable however I doubt she would find it affordable at this point I would not adjust her medical regimen. Jardiance has been added to her regimen which hopefully will be helpful. As stated in my partner's notes she has a longstanding history of noncompliance with medication as well as follow-up in the office. She indicates plans are for discharge in the next couple of days. Carlitos Leonard MD [facility] Subjective Date/time seen: date of service:12/12/22 09:25 Interval history: Follow-up visit in this 62-year-old patient with: Nonischemic cardiomyopathy with low ejection fraction. The patient is enters the hospital with shortness of breath has this diagnosis +significant underlying COPD and morbid obesity. At the time of diagnosis in 08/09/2014 patient did undergo left heart catheterization which demonstrated very low ejection fraction and no coronary disease. This is in the records for review. She is seated at the side of her bed today still has some mild conversational dyspnea otherwise not any distress. 12/12/2022: Patient is feeling better today. Yesterday she was claiming to have a very some weird side effect of spironolactone resulting in extreme weakness and inability to move at all. She claims to have had this reaction to spironolactone in the past. Obviously the drug has been stopped she does feel better today she was up in the bathroom when I came into see her. Breathing is still problematic with activity at bed rest she seems to be comfortable. Exam Narrative: Middle-aged female, does not appear to be in good health, obese, mildly tachypneic lying at 30?, uncomfortable due to back pain. Const: General: cooperative and uncomfortable; No healthy appearing, comfortable or confusion Orientation/consciousness: oriented to person, patient oriented x3 and No confusion Other: Morbidly obese white female does have some conversational dyspnea otherwise relatively stable HENMT: Mouth: Yes moist mucous membranes Eyes: General: appearance normal, both eyes and all related structures Sclera: sclerae normal Neck: Neck: supple and no JVD (Unable to evaluate for JVD due to obesity) Thyroid: thyroid normal Carotids: no bruits Other: very difficult to assess JVD given her obesity no obvious venous distention Resp: Effort & Inspection: normal respiratory effort Auscultation: rales (Rales in bases) and diminished lung sounds Other: Breath sounds are distant reduced air movement fine expiratory wheezing noted, no rales Cardio: Rate: regular rate Rhythm: regular rhythm Heart sounds: no murmurs Other: PMI is not palpable 3rd heart sound is audible GI: Inspection: normal to inspection Auscultation: normal bowel sounds Skin: General skin exam: normal color and no rashes or lesions noted Neuro: General: oriented to person, patient oriented x3 and No confusion Other: alert and oriented x3 Extrem: Right lower extremity: edema Left lower extremity: edema Other: no edema, Psych: Appearance: grossly normal Mental Status: mental status grossly normal Objective Data Vital Signs Vital Signs: V
--- NOTE | 2022-12-12 13:51 | PM.DS ---
DS: Admitting Diagnosis Discharge Date 12/12/2022 Admitting Diagnosis COPD with exacerbation DS: Discharge Diagnosis Discharge Diagnosis (1) Acute exacerbation of chronic obstructive airways disease: Code(s): J44.1 - Chronic obstructive pulmonary disease with (acute) exacerbation Status: Acute Assessment and Plan: Patient with history of COPD, not on home oxygen, She was empirically started on doxycycline and has been taking prednisone 10 mg at home. Patient was given continuous nebulizations in the ER and was placed on oxygen supplementation including BiPAP support. Continue steroids and Levaquin for 5 days through 12/14/24 (receiving Levaquin in the PM) (2) CHF (congestive heart failure), NYHA class I: Qualifiers: Congestive heart failure chronicity: chronic Congestive heart failure type: systolic Qualified Code(s): I50.22 - Chronic systolic (congestive) heart failure Code(s): I50.9 - Heart failure, unspecified Status: Acute Assessment and Plan: Currently her BNP is elevated to over 3900 and her imaging shows some interstitial edema. Patient likely has CHF exacerbation. - echo shows decreased ejection fraction, global hypokinesia. - cardiology has been consulted. Will wait for further recommendations -will continue Lasix -patient's home medications include bisoprolol, Lasix, irbesartan to be continued -Due to intolerance to spironolactone and cost of eplerenone, no MRA at this time -Entresto not an option due to cost as well (3) CAP (community acquired pneumonia): Code(s): J18.9 - Pneumonia, unspecified organism Status: Acute DS: Summary Hospital Course Hospital Course: Admitted with increased shortness of breath and cough. Chest x-ray showed mild interstitial edema. Coarse breath sounds with wheezes or rhonchi initially. Treated with steroids and Levaquin 750 mg daily. Her restart and was decreased from 150 to 75 mg and furosemide increased from 40-80 mg total per day. Improved dramatically by 12/12/22 and was able to get up out of bed independently walk to bathroom and perform ADLs. By 12/12/22 she was wanting to go home. Could not tolerate spironolactone due to fatigue and weakness. Entresto was not an option for her cardiomyopathy due to cost. Cardiology consulted and confirm this. Time Spent with Patient Time attestation: Total time spent providing and/or coordinating discharge services: Exam Narrative: general- awake, alert, oriented, minimal distress, morbidly obese, able to talk in full sentences heent- perrl, no nystagmus, no throat swelling, no dicharge chest-coarse, distant breath sounds, no wheezes, crackles heart- s1, s2, tachycardic rate and rhythm, no gallops or murmurs abdomen- soft, bowel sounds heard, no rebound or tenderness extremities- no edema or cyanosis neuro- CN symmetric to visual inspection DS: Data Data Completed and Pending Labs on day of discharge: Preliminary micro results at discharge 12/08/22 22:27 Blood Culture - Preliminary Blood 12/08/22 22:42 Blood Culture - Preliminary Blood Discharge Plan Discharge Consulting providers: Carito Ibarra Discharging Clinician: Kraig Meraz Patient Disposition: Home, Self-Care Activity: no straining Diet: heart healthy Patient Instructions: Antibiotic Form, Heart Failure (GEN), Heart Healthy Diet (DC), Weight Management (DC), BiPAP (GEN) Stand Alone Forms: General Discharge Information Follow-up/Referrals: PHYSICIAN NOT ON STAFF,NONSTAFF [Primary Care Provider] - (Keep 12/29/[address] Luna) Discharge Medications: New irbesartan [Avapro] 75 mg Tablet 75 mg PO QAM Qty: 30 0RF folic acid 1 mg Tablet 1 mg PO DAILY Qty: 30 0RF levofloxacin 750 mg tablet 750 mg PO DAILY Qty: 3 0RF Rx Instructions: Take after evening meal 12/12, 12/13, and 12/14 acetaminophen [Mapap (acetaminophen)] 325 mg Tabl
== END 2022-12-12 15:46 | disposition home or self-care (01) | DRG 190 ==
LOC: ANHED 12-09 01:43 → ANHICU 12-09 02:19 → ANH3MED 12-09 18:28
PROVIDERS: Hospitalist; Admitting Provider Internal Medicine; Emergency Provider Emergency Medicine; Visit Provider Internal Medicine
DX: J44.1 Chronic obstructive pulmonary disease with (acute) exacerbation (principal); I50.23 Acute on chronic systolic (congestive) heart failure; J96.00 Acute respiratory failure, unspecified whether with hypoxia or hypercapnia; Z68.41 Body mass index [BMI] 40.0-44.9, adult; I42.8 Other cardiomyopathies; I11.0 Hypertensive heart disease with heart failure; J44.0 Chronic obstructive pulmonary disease with (acute) lower respiratory infection; Z91.148 Patient's other noncompliance with medication regimen for other reason; Z20.822 Contact with and (suspected) exposure to COVID-19; F31.9 Bipolar disorder, unspecified; E78.5 Hyperlipidemia, unspecified; M81.0 Age-related osteoporosis without current pathological fracture; I44.7 Left bundle-branch block, unspecified; F41.9 Anxiety disorder, unspecified; M19.90 Unspecified osteoarthritis, unspecified site; E66.01 Morbid (severe) obesity due to excess calories; Z86.73 Personal history of transient ischemic attack (TIA), and cerebral infarction without residual deficits; Z90.49 Acquired absence of other specified parts of digestive tract; Z87.891 Personal history of nicotine dependence; Z66 Do not resuscitate
CPT/HCPCS: 36415; 36600; 71045; 80048; 80053; 81001; 82306; 82607; 82805; 82948; 83036; 83605; 83690; 83735; 83880; 84439; 84484; 85025; 85610; 85730; 87040; 87081; 87637; 93005; 93306; 94003; 94640; 96365; 96372; 97161; 97165; 99291; A9270; C8929; J1100; J1650; J1940; J1956; J3370; J3420; J3475; J7512; Q9957

== ENCOUNTER 2023-06-22 17:12 | Inpatient (IN) | payer BC, SELFPAY ==
[2023-06-22] VITALS (29 sets, daily range): BP systolic 131–162; BP diastolic 65–86; PULSE 95–118; RESP 17–33; TEMP 37–37.6; O2SAT 94–100; BMI 43.9
--- NOTE | ~2023-06-22 | XR_ITS ---
Portable chest x-ray Comparison: 06/22/2023 Clinical History: Respiratory failure Findings: There is probable central venous congestive change versus pulmonary hypertension. Cardiom ediastinal silhouette is stable. Bones and soft tissues are unremarkable. Impression: Central venous congestive change versus pulmonary artery hypertension. Reviewed, dictated and finalized at [facility]. STRY RN Impression: Central venous congestive change versus pulmonary artery hypertension.
--- NOTE | ~2023-06-22 | XR_ITS ---
EXAMINATION: XR chest 1V portable DATE: 06/22/2023 17:45 INDICATION: Shortness of breath. TECHNIQUE: A single frontal view of the chest was obtained. COMPARISON: Chest one view 12/08/2022 FINDINGS: Sensitivity is decreased by obesity. There are airspace opacities in left lower lobe. No pl eural effusion or pneumothorax. Cardiomegaly is noted. IMPRESSION: 1. Airspace opacities in left lower lobe, consistent with atelectasis versus pneumonia. 2. Cardiomegaly. Reviewed, dictated and finalized at [facility] IMPRESSION: 1. Airspace opacities in left lower lobe, consistent with atelectasis versus pn eumonia. 2. Cardiomegaly.
--- NOTE | 2023-06-22 17:24 | ECG_ITS ---
Measurements Intervals [place] Rate: 114 P: -60 SD: 137 QRS: -56 QRSD: 160 T: 77 QT: 362 QTc: 501 Interpretive Statements SINUS OR ATRIAL TACHYCARDIA ATRIAL PREMATURE COMPLEXES LEFT AXIS DEVIATION LEFT BUNDLE BRANCH BLOCK BASELINE ARTIFACT- I, II, III, AVR ABNORMAL ECG COMPARED TO ECG 12/08/2022 21:35:14 NO SIGNIFICANT CHANGES Electronically Signed On 06-23-2023 6:39:14 PYROTECHNIC MIXER by Hernandez Wells D.O.
--- NOTE | 2023-06-22 17:28 | ED.SOB ---
HPI - SOB/Dyspnea General Chief Complaint: Shortness of Breath/Dyspnea Stated Complaint: SOB Time Seen by Provider: 06/22/23 17:22 History of Present Illness HPI Narrative: Patient is a 63-year-old female with history of heart failure, EF around 20%, COPD here with shortness of breath. She states that the shortness of breath has progressed over the last few days, she is in respiratory distress on initial evaluation in son does help with history. He states she has been complaining of increased shortness of breath worse with exertion. He notes that this seems very similar to her prior hospitalization that she had about 5 or 6 months ago for shortness of breath. He states that her ejection fraction is around 20%, has previously refused an AICD. She denies any chest pain. Denies productive cough or increase cough from baseline. Denies wheezing. Denies fever or chills. She notes that she is DNR/DNI. She was attempting to come to the ER however became very short of breath, EMS was called, she was found to be tachypneic and hypoxic around 82% and started on CPAP. No meds given en route. Related Data Home Medications Medication Instructions Recorded Confirmed albuterol sulfate 90 mcg/actuation 2 puff inhalation QID PRN 07/05/19 12/09/22 aerosol inhaler (ProAir HFA) Shortness Of Breath bisoprolol fumarate 5 mg tablet 5 mg PO DAILY 07/05/19 12/09/22 budesonide-formoterol HFA 160 2 puff inhalation Q12H 07/05/19 12/09/22 mcg-4.5 mcg/actuation aerosol inhaler (Symbicort) fexofenadine 60 mg-pseudoephedrine 60 - 120 tablet PO DAILY 07/05/19 12/09/22 ER 120 mg tablet,ext.release,12 hr (Liz-D 12 Hour) oxycodone-acetaminophen 10 mg-325 1 tablet PO Q8H PRN Pain 12/09/22 12/09/22 mg tablet Allergies Allergy/AdvReac Type Severity Reaction Status Date / Time shellfish derived Allergy Intermediate Hives Verified 02/04/20 13:49 cephalexin Allergy Mild HIVES Verified 02/04/20 13:49 adhesive tape Allergy Rash Verified 02/04/20 13:49 aspirin AdvReac Unknown STOMACH Verified 02/04/20 13:49 IRRITATION ibuprofen AdvReac Unknown STOMACH Verified 02/04/20 13:49 IRRITATION METAL Allergy Intermediate Unknown Uncoded 02/04/20 13:49 SHELLFISH Allergy Intermediate HIVES Uncoded 02/04/20 13:49 MULTIPLE ANTIBIOTICS Allergy Mild Unknown Uncoded 02/04/20 13:49 Review of Systems Review of Systems: ROS unobtainable: Yes unobtainable due to medical condition PMFSH Past Medical History Medical History (Updated 06/22/23 @ 20:35 by Manasa Cuellar MD) Anxiety Arthritis Asthma Bipolar 1 disorder Bronchitis CHF (congestive heart failure), NYHA class I COPD (chronic obstructive pulmonary disease) Depression Family history of head, eyes, ears, nose, and throat (HEENT) problems Herniated disc History of stroke HLD (hyperlipidemia) HTN (hypertension) LBBB (left bundle branch block) Lumbar herniated disc Nonischemic cardiomyopathy Osteoporosis Bilateral hips but unable to have surgery due to her respiratory problems TIA (transient ischemic attack) Surgical History Surgical History H/O section H/O tubal ligation Hx of cholecystectomy Hx of tonsillectomy Family History Family History Father Diabetes mellitus Hypertension Heart disease Mother Metastatic cancer Other Family history of arthritis Family history of cardiovascular disease Family history of malignant neoplasm Social History Social History Social History: The patient has 1 son who is Carlitos and Carlitos is her durable power corporate associate attorney for healthcare. She wishes to be a full code. She is disabled. She is . She stated that she quit smoking on and off for many years and was down to just a few cigarettes a day. She stated she has not smoked a cigarette in 7 days. Smoking packs per
[2023-06-22] MEDS: LEVALBUTEROL NEB 1.25 MG/3 ML 2.5 MG INHALATION (17:38)
[2023-06-22] MEDS: IPRATROPIUM BR 0.02% INH SOLN 0.5 MG/2.5 ML VIAL 1.5 MG INHALATION (17:38)
[2023-06-22] MEDS: methylPREDNISolone SOD SUCC 125 MG VIAL IV PUSH (18:00)
--- NOTE | 2023-06-22 18:01 | PC.NURSE ---
Pt is refusing straight catheter at this time.
--- NOTE | 2023-06-22 18:05 | PC.NURSE ---
Pt refusing straight catheter at this time and unable to urinate
[2023-06-22 18:10] LABS: Basophils Percent Auto 0.4 % (0.2-1.2); Eosinophils Percent Auto 0.2 % (0-4.4); Hematocrit 46.7 % (37.0-47.0); Hemoglobin 14.2 g/dL (12.0-15.0); Immature Granulocyte Absolute 0.04 K/mm3 (0.00-0.031); Immature Granulocyte Percent A 0.5 % (0-0.5); Lymphocytes Absolute Auto 0.34 K/mm3 (0.9-3.2); Lymphocytes Percent Auto 4.1 % (18.3-44.2); Mean Corpuscular HGB Conc 30.4 g/dl (32-36); Mean Corpuscular Hemoglobin 30.3 pg (26-34); Mean Corpuscular Volume 99.8 fl (80-100); Mean Platelet Volume 11.6 fl (7.4-10.4); Monocytes Percent Auto 11.5 % (2.6-8.5); Neutrophils Absolute Auto 6.9 K/mm3 (1.3-6.7); Neutrophils Percent Auto 83.3 % (45.5-73.1); Platelet Count Result 177 k/mm3 (150-375); Red Blood Count 4.68 M/mm3 (4.2-5.4); Red Cell Distribution Width 16.4 % (11.5-14.5); White Blood Count 8.3 K/mm3 (4.5-10.0)
[2023-06-22 18:23] LABS: Alanine Aminotransferase 39 U/L (6-35); Albumin Level 4.2 g/dL (3.5-5.1); Alkaline Phosphatase 75 U/L (38-126); Anion Gap 6 mmol/L (8-16); Aspartate Amino Transferase 34 U/L (14-36); Bilirubin,Total 0.6 mg/dL (0.2-1.3); Blood Urea Nitrogen 17 mg/dL (7-17); Carbon Dioxide 36 mmol/L (22-30); Chloride 95 mmol/L (98-107); Estimated CRCL calculation 87 ml/min; Estimated Glomerular Filt Rate > 60; Glucose 131 mg/dL (65-110); Sodium 137 mmol/L (137-145)
[2023-06-22 18:24] LABS: Lactic Acid Reflex 1.3 mmol/L (0.7-2.0)
[2023-06-22 18:24] LABS: Prothrombin Time 13.1 Seconds (11.1-14.7)
[2023-06-22 18:25] LABS: Partial Thromboplastin Time 25.2 SECONDS (22.3-36.8)
[2023-06-22 18:32] LABS: NT Pro B Type Natriuretic Pept 3870 pg/mL (19.9-100)
[2023-06-22 18:44] LABS: Troponin I 0.122 ng/mL (0.000-0.034)
[2023-06-22 18:46] LABS: Influenza A QL RT-PCR Positive (Negative); Influenza B QL RT-PCR Negative (Negative); RSV RNA, RT-PCR Negative (Negative); SARS-CoV-2 RNA PCR Negative (Negative)
[2023-06-22] MEDS: ASPIRIN 81 MG CHEWABLE TABLET 324 MG PO (18:53)
[2023-06-22 18:59] LABS: Procalcitonin 0.1 ng/mL
[2023-06-22 21:12] LABS: Fractional Inspired Oxygen 45 %; HCO3 VBG 37.1 mEq/l (24.0-30.0); PO2 VBG 86.7 mmHg (35.0-45.0); pH VBG 7.283 (7.300-7.400)
[2023-06-22 21:14] LABS: Device NON-INVASIVE VENT; PCO2 VBG 80.3 mmHg (42.0-48.0)
[2023-06-22 21:15] LABS: Non-Invasive Expiratory Pressure 6 CMH2O; Non-Invasive Inspiratory Pressure 12 CMH2O; Non-Invasive Vent Rate 18 /MIN
[2023-06-22 21:16] LABS: Appearance Urine Cloudy (Clear); Bacteria Urine None Seen /hpf; Bilirubin Urine 1+ (Negative); Blood Urine Negative (Negative); Color Urine Dark Yellow (Yellow); Glucose Urine UA Negative (Negative); Ketones Urine Trace mg/dL (Negative); Leukocyte Esterase Ur Negative LEU/UL (Negative); Need Manual Microscopic Reviewed; Nitrate Urine Negative (Negative); Protein Urine 3+ mg/dL (Negative); Specific Grav Ur 1.024 (1.001-1.035); Squamous Epithelial Cell Urine Many /hpf (Few); WBC Urine 0-5 /hpf
[2023-06-22 21:20] LABS: Add Urine Microscopic? YES
[2023-06-22 21:28] LABS: Troponin I 0.156 ng/mL (0.000-0.034)
--- NOTE | 2023-06-22 22:40 | ADMGEN ---
This patient, Louise Cox, was admitted to IMU Room 212-01. Patient/family oriented to hospital policies and general routines including ID bracelet, bed and alarms, visiting hours, pain management, procedures, bathroom and other care routines, personal items, smoking policy, room service/diet, and visiting hours. Information on how to activate the Rapid Response Team has been discussed. Patient/Family are encouraged to report perceived risks to care and to ask questions if they do not understand what they are told or what they should do.
--- NOTE | 2023-06-22 23:17 | PM.IMHP ---
H&P: HPI History of Present Illness Date/Time: 06/22/23 23:17 Chief Complaint: Patient was brought to the ER for evaluation by EMS for worsening shortness of breath Narrative: Morbidly obese female with chronic medical issues is complaining of worsening shortness of breaths for the last month, which has gotten worse over the last couple of days. She is complaining of worsening shortness of breaths which is affecting her daily activities. Patient was getting it family car to come to the ED when she became extremely short of breath. EMS was called, when they arrived patient was satting at 82% on room air. Patient had labored respirations and using accessory muscles. She was placed on CPAP and O2 sats improved to 98%. Patient brought to the ER for evaluation. She was transitioned from CPAP to BiPAP. Workup was done which showed findings consistent with COPD exacerbation. She was also positive for influenza A. She is being admitted to IMU for close medical monitoring, medical management and workup. Review of Systems Review of Systems: 14 systems were reviewed with pertinent positives and negatives per HPI. Except as documented in the HPI/progress notes, all other systems were reviewed and are negative. All systems reviewed & are unremarkable except as noted in HPI and below PMFSH Past Medical History Medical History Anxiety Arthritis Asthma Bipolar 1 disorder Bronchitis CHF (congestive heart failure), NYHA class I COPD (chronic obstructive pulmonary disease) Depression Family history of head, eyes, ears, nose, and throat (HEENT) problems Herniated disc History of stroke HLD (hyperlipidemia) HTN (hypertension) LBBB (left bundle branch block) Lumbar herniated disc Nonischemic cardiomyopathy Osteoporosis Bilateral hips but unable to have surgery due to her respiratory problems TIA (transient ischemic attack) Surgical History Surgical History H/O section H/O tubal ligation Hx of cholecystectomy Hx of tonsillectomy Family History Family History Father Diabetes mellitus Heart disease Hypertension Mother Metastatic cancer Other Family history of arthritis Family history of cardiovascular disease Family history of malignant neoplasm History of blood clots Social History Social History Social History: The patient has 1 son who is Carlitos and Carlitos is her durable power director of maternity services for healthcare. She wishes to be a full code. She is disabled. She is . She stated that she quit smoking on and off for many years and was down to just a few cigarettes a day. She stated she has not smoked a cigarette in 7 days. Smoking packs per day: 1 Smoking cigarettes per day: 20.0 Years smoked: 40 Smoking pack-years: 40.00 Smoking status: Former smoker Tobacco type: cigarettes Second hand tobacco smoke exposure: Yes Smoking end date: 12/17/22 Additional smoking assessment comments: Pt states she quit smoking 7 days ago. Alcohol intake: former Substance use: current Substance use type: marijuana Other substance usage details: maite, medical card, back pain control Last use: 06/15/2023 Do You Feel Safe in your Home?: Yes Lack of Transportation: No Lack of Food: Never True Current Housing: I Have Housing Concerned About Future Housing: No Difficulty Paying Gas/Electric Bills: No Difficulty Paying for Meds: YES Currently Unemployed: No Education: High School Diploma/GED Difficulty w/ Childcare or Family Care: No Living arrangements: alone Occupation/Education: other Gender identity (if verbalized by the patient): Female Spiritual care concerns: No Agree to blood products: Yes Meds Home Medications and Allergies Home Medications Medication
[2023-06-23] VITALS (18 sets, daily range): BP systolic 115–151; BP diastolic 66–84; PULSE 77–110; RESP 18–32; TEMP 36.6–37.3; O2SAT 92–99
[2023-06-23 00:25] LABS: Troponin I 0.127 ng/mL (0.000-0.034)
[2023-06-23] MEDS: methylPREDNISolone SOD SUCC 125 MG VIAL 60 MG IV PUSH ×4 (00:25→21:48)
[2023-06-23] MEDS: ENOXAPARIN 120 MG/0.8 ML SYRINGE 113 MG SUB-Q (00:27)
[2023-06-23 05:28] LABS: Hematocrit 44.2 % (37.0-47.0); Hemoglobin 13.6 g/dL (12.0-15.0); Mean Corpuscular HGB Conc 30.8 g/dl (32-36); Mean Corpuscular Hemoglobin 30.5 pg (26-34); Mean Corpuscular Volume 99.1 fl (80-100); Mean Platelet Volume 10.9 fl (7.4-10.4); Platelet Count Result 176 k/mm3 (150-375); Red Blood Count 4.46 M/mm3 (4.2-5.4); Red Cell Distribution Width 15.9 % (11.5-14.5); White Blood Count 5.9 K/mm3 (4.5-10.0)
[2023-06-23 05:49] LABS: Blood Urea Nitrogen 18 mg/dL (7-17); Calcium 8.7 mg/dL (8.4-10.2); Carbon Dioxide > 40 mmol/L (22-30); Chloride 95 mmol/L (98-107); Estimated CRCL calculation 88 ml/min; Estimated Glomerular Filt Rate > 60; Glucose 171 mg/dL (65-110); Potassium 4.5 mmol/L (3.4-5.0); Sodium 137 mmol/L (137-145)
[2023-06-23 06:02] LABS: Troponin I 0.116 ng/mL (0.000-0.034)
[2023-06-23] MEDS: ACETAMINOPHEN 325 MG TABLET 650 MG PO (06:06)
[2023-06-23] MEDS: LORATADINE/PSEUDOEPHEDRINE (*CRX) 10/240 MG TABLET ER 24 HR 1 TAB PO (08:55)
[2023-06-23] MEDS: CYANOCOBALAMIN 1,000 MCG TABLET 1000 MCG PO (08:55)
[2023-06-23] MEDS: POTASSIUM CHLORIDE 20 MEQ ER TABLET PO (08:55)
[2023-06-23] MEDS: FUROSEMIDE 40 MG TABLET PO ×2 (08:56→16:09)
[2023-06-23] MEDS: OSELTAMIVIR PHOSPHATE 75 MG CAPSULE PO ×2 (08:56→21:45)
[2023-06-23] MEDS: ENOXAPARIN 30 MG/0.3 ML SYRINGE SUB-Q ×2 (08:56→21:48)
[2023-06-23] MEDS: FOLIC ACID 1 MG TABLET PO (08:56)
[2023-06-23] MEDS: bisoproloL fumarate 5 MG TABLET PO (09:17)
[2023-06-23] MEDS: IRBESARTAN 75 MG TABLET PO (09:17)
[2023-06-23] MEDS: oxyCODONE/ACETAMINOPHEN (*CRX) 10-325 MG TABLET 1 TAB PO ×2 (09:18→21:45)
--- NOTE | 2023-06-23 10:22 | PM.IMPN ---
Progress Note: A&P Assessment and Plan (1) Influenza A: Code(s): J10.1 - Influenza due to other identified influenza virus with other respiratory manifestations Status: Acute (2) Elevated troponin: Code(s): R79.89 - Other specified abnormal findings of blood chemistry Status: Acute (3) CAP (community acquired pneumonia): Code(s): J18.9 - Pneumonia, unspecified organism Status: Acute (4) COPD (chronic obstructive pulmonary disease): Qualifiers: COPD type: COPD with acute exacerbation Qualified Code(s): J44.1 - Chronic obstructive pulmonary disease with (acute) exacerbation Code(s): J44.9 - Chronic obstructive pulmonary disease, unspecified Status: Chronic (5) Acute exacerbation of chronic obstructive airways disease: Code(s): J44.1 - Chronic obstructive pulmonary disease with (acute) exacerbation Status: Acute (6) Acute respiratory failure with hypoxia and hypercapnia: Code(s): J96.01 - Acute respiratory failure with hypoxia; J96.02 - Acute respiratory failure with hypercapnia Status: Acute Subjective Date/time seen: 06/23/23 10:22 Interval history: NAOE. patient reports great improvement in her breathing since admission Review of Systems Review of Systems: All systems reviewed & are unremarkable except as noted in HPI and below (subjective) Exam Const: General: comfortable and no acute distress Other: obese Eyes: Pupils: Equal, round and reactive pupils present Neck: Neck: supple Resp: Effort & Inspection: normal respiratory effort Auscultation: diminished lung sounds Cardio: Rate: regular rate Rhythm: regular rhythm Heart sounds: no gallops, no murmurs and no rubs GI: GI Palp: Yes Soft to palpation Extrem: General: no edema Objective Data Vital Signs Vital Signs: Vital Signs - 24 hr 06/22/23 17:13 06/22/23 17:28 06/22/23 17:38 Temperature 99.6 F Pulse Rate 118 H 112 H 110 H Respiratory Rate 26 H 33 H 19 Blood Pressure 162/86 H Pulse Oximetry 98 99 Oxygen Delivery CPAP BiPAP Oxygen Flow Rate 06/22/23 17:50 06/22/23 17:25 06/22/23 17:31 Temperature Pulse Rate 116 H 115 H Respiratory Rate 26 H 28 H Blood Pressure 162/86 H 140/85 Pulse Oximetry 99 94 99 Oxygen Delivery BiPAP Oxygen Flow Rate 06/22/23 19:02 01/03/24 19:02 06/22/23 19:05 Temperature Pulse Rate 115 H 114 H 109 H Respiratory Rate 20 19 Blood Pressure 137/76 Pulse Oximetry 98 Oxygen Delivery Oxygen Flow Rate 06/22/23 19:00 06/22/23 19:02 06/22/23 19:16 Temperature Pulse Rate 116 H 115 H Respiratory Rate Blood Pressure 137/76 Pulse Oximetry 94 100 99 Oxygen Delivery Oxygen Flow Rate 06/22/23 19:41 06/22/23 19:45 06/22/23 20:00 Temperature Pulse Rate 110 H 109 H 107 H Respiratory Rate 17 Blood Pressure Pulse Oximetry 98 98 98 Oxygen Delivery Oxygen Flow Rate 06/22/23 20:01 06/22/23 19:15 06/22/23 19:15 Temperature Pulse Rate 106 H Respiratory Rate 22 H Blood Pressure 159/84 H Pulse Oximetry 98 99 99 Oxygen Delivery BiPAP BiPAP Oxygen Flow Rate 06/22/23 20:02 06/22/23 20:15 06/22/23 20:34 Temperature Pulse Rate 108 H 106 H 105 H Respiratory Rate 20 22 H Blood Pressure Pulse Oximetry 98 98 99 Oxygen Delivery Oxygen Flow Rate 06/22/23 20:45 06/22/23 20:46 06/22/23 20:47 Temperature Pulse Rate 103 H 104 H 104 H Respiratory Rate Blood Pressure 146/65 H Pulse Oximetry 98 98 98 Oxygen Delivery Oxygen Flow Rate 06/22/23 21:03 06/22/23 21:15 06/22/23 21:30 Temperature Pulse Rate 116 H 103 H 103 H Respiratory Rate Blood Pressure Pulse Oximetry 97 98 Oxygen Delivery Oxygen Flow Rate 06/22/23 21:31 06/22/23 21:46 06/22/23 22:45 Temperature 98.6 F Pulse Rate 103 H 103 H 99 Respiratory Rate 18 20 Blood Pressure 153/66 H 131/83 Pulse Oximetry 98 98 98
[2023-06-23] MEDS: levoFLOXacin 500 MG/D5W 100 ML 500 MG/100 ML BAG 100 MG IVPB (11:02)
--- NOTE | 2023-06-23 11:25 | PM.CNCAR ---
Assessment and Plan Assessment and plan (1) Acute respiratory failure with hypoxia and hypercapnia: Code(s): J96.01 - Acute respiratory failure with hypoxia; J96.02 - Acute respiratory failure with hypercapnia Status: Acute Assessment and Plan: Management as per primary team. (2) Influenza A: Code(s): J10.1 - Influenza due to other identified influenza virus with other respiratory manifestations Status: Acute Assessment and Plan: Management as per primary team. (3) Elevated troponin: Code(s): R79.89 - Other specified abnormal findings of blood chemistry Status: Acute Assessment and Plan: Most likely due to demand ischemia, does not appear to be due to acute coronary syndrome. No further workup at this time. (4) LBBB (left bundle branch block): Code(s): I44.7 - Left bundle-branch block, unspecified Status: Acute Assessment and Plan: Chronic (5) Nonischemic cardiomyopathy: Code(s): I42.8 - Other cardiomyopathies Status: Acute Assessment and Plan: Although BNP is elevated, patient is not in clinical decompensated heart failure. Recommend to continue home heart failure medications. Plan Recommendations and plan discussed with Hospitalist. Cardiology will sign off at this time. Please call us back if needed. History of Present Illness History of Present Illness Consult date/time: 06/23/23 11:25 Requesting physician: Manasa Cuellar MD Consult reason: Other (Elevated troponin) Reason For Visit: Influenza A, COPD Exacerbation Narrative: We are consulted for elevated troponin. This is a 63 year old female with chronic heart failure with reduced ejection fraction, non-ischemic cardiomyopathy which was diagnosed in 2015 (has declined ICD in the past), hypertension, hyperlipidemia, COPD, TIA, tobacco use who presented with shortness of breath. Found to have mildly elevated troponins in the ED. EKG with chronic LBBB. Found to also have acute COPD exacerbation, Influenza A, acute hypoxic hypercarbic respiratory failure. Troponins are 0.122, 0.156, 0.127, 0.116. Patient denies any chest pain. States she is feeling better this morning. Review of Systems Review of Systems: All systems reviewed & are unremarkable except as noted in HPI and below (HPI) [facility] Past Medical History Medical History Anxiety Arthritis Asthma Bipolar 1 disorder Bronchitis CHF (congestive heart failure), NYHA class I COPD (chronic obstructive pulmonary disease) Depression Family history of head, eyes, ears, nose, and throat (HEENT) problems Herniated disc History of stroke HLD (hyperlipidemia) HTN (hypertension) LBBB (left bundle branch block) Lumbar herniated disc Nonischemic cardiomyopathy Osteoporosis Bilateral hips but unable to have surgery due to her respiratory problems TIA (transient ischemic attack) Surgical History Surgical History H/O section H/O tubal ligation Hx of cholecystectomy Hx of tonsillectomy Family History Family History Father Diabetes mellitus Heart disease Hypertension Mother Metastatic cancer Other Family history of arthritis Family history of cardiovascular disease Family history of malignant neoplasm History of blood clots Social History Social History Social History: The patient has 1 son who is Carlitos and Carlitos is her durable power technology specialist for healthcare. She wishes to be a full code. She is disabled. She is . She stated that she quit smoking on and off for many years and was down to just a few cigarettes a day. She stated she has not smoked a cigarette in 7 days. Smoking packs per day: 1 Smoking cigarettes per day: 20.0 Years smoked: 40 Smoking pack-years: 40.00 Smoking
[2023-06-23] MEDS: ALBUTEROL SULFATE NEB 2.5 MG/3 ML INH INHALATION ×2 (13:35→21:15)
[2023-06-23] MEDS: IPRATROPIUM BR 0.02% INH SOLN 0.5 MG/2.5 ML VIAL INHALATION ×2 (13:35→21:14)
[2023-06-24] VITALS (57 sets, daily range): BP systolic 110–165; BP diastolic 61–99; PULSE 74–121; RESP 14–32; TEMP 36.4–37; O2SAT 91–100
[2023-06-24] MEDS: IPRATROPIUM BR 0.02% INH SOLN 0.5 MG/2.5 ML VIAL INHALATION ×4 (02:44→21:19)
[2023-06-24] MEDS: ALBUTEROL SULFATE NEB 2.5 MG/3 ML INH INHALATION ×4 (02:45→21:19)
--- NOTE | 2023-06-24 03:02 | PC.NURSE ---
Patient refusing bipap. She tore tubing in half in order to get it off. She states this is the first time she's hads to wear it, despite nurse report of her wearing it the night before. Patient constantly setting off bed alarm to sit on side of bed and c/o of SOB but continues to refuse bipap. Patient states she wants to vomit to clear throat but she is not nauseas. Explained if she feels she needs something to clear secretions I can call MD for and expectorant-pt refuses the offer to suction.
[2023-06-24 04:31] LABS: Hematocrit 46.1 % (37.0-47.0); Hemoglobin 13.6 g/dL (12.0-15.0); Mean Corpuscular HGB Conc 29.5 g/dl (32-36); Mean Corpuscular Hemoglobin 30.5 pg (26-34); Mean Corpuscular Volume 103.4 fl (80-100); Platelet Count Result 179 k/mm3 (150-375); Red Blood Count 4.46 M/mm3 (4.2-5.4); Red Cell Distribution Width 15.8 % (11.5-14.5); White Blood Count 8.2 K/mm3 (4.5-10.0)
[2023-06-24 04:38] LABS: Fractional Inspired Oxygen 40 %; HCO3 VBG 46.7 mEq/l (24.0-30.0); PO2 VBG 56.9 mmHg (35.0-45.0)
[2023-06-24 04:41] LABS: Device NASAL CANNULA; PCO2 VBG 119.5 mmHg (42.0-48.0)
[2023-06-24 04:44] LABS: Blood Urea Nitrogen 36 mg/dL (7-17); Calcium 8.8 mg/dL (8.4-10.2); Carbon Dioxide > 40 mmol/L (22-30); Chloride 92 mmol/L (98-107); Estimated CRCL calculation 63 ml/min; Estimated Glomerular Filt Rate 56; Glucose 168 mg/dL (65-110); Magnesium 2.1 mg/dL (1.6-2.3); Potassium 4.8 mmol/L (3.4-5.0); Sodium 139 mmol/L (137-145)
[2023-06-24] MEDS: methylPREDNISolone SOD SUCC 125 MG VIAL 60 MG IV PUSH (05:07)
[2023-06-24] MEDS: ALPRAZolam (*CRX) 0.25 MG TABLET PO (05:07)
[2023-06-24] MEDS: FUROSEMIDE INJ 40 MG/4 ML VIAL (08:51)
--- NOTE | 2023-06-24 08:54 | WPDCNINT ---
Assessment and Plan Assessment and plan (1) Acute on chronic respiratory failure with hypoxia and hypercapnia: Code(s): J96.21 - Acute and chronic respiratory failure with hypoxia; J96.22 - Acute and chronic respiratory failure with hypercapnia Status: Acute Assessment and Plan: Acute on chronic hypoxic and hypercarbic Respiratory failure secondary to influenza a, COPD exacerbation and congestive heart failure with pulmonary edema Chest x-ray showed Central venous congestive change versus pulmonary artery hypertension. ABG done showed 7.23/98/70/40 Patient has been noncompliant with her BiPAP I had long discussion with the patient regarding compliance to help her respiratory distress and respiratory failure and explained her that if the BiPAP is ineffective or if she does not tolerate she will need intubation and mechanical ventilation. Patient continues to make excuses for not wearing BiPAP. She also does not want to be intubated unless absolutely needed is full code at this time. I will transfer patient to ICU where she will have closer monitoring and nursing care Will place patient on NIPPV and may need to use Precedex in case there is an anxiety component to her noncompliance Continue bronchodilators, Solu-Medrol, Tamiflu Continue empiric Levaquin Will also give Lasix IV now and repeat later in the day for pulmonary edema (2) Influenza A: Code(s): J10.1 - Influenza due to other identified influenza virus with other respiratory manifestations Status: Acute Assessment and Plan: Tamiflu and isolation (3) Noncompliance with medication regimen: Code(s): Z91.148 - Patient's other noncompliance with medication regimen for other reason Status: Acute Assessment and Plan: See above (4) Acute on chronic systolic CHF (congestive heart failure): Code(s): I50.23 - Acute on chronic systolic (congestive) heart failure Status: Acute Assessment and Plan: Echo 12/09/2022 summary ? 1. Complete two-dimensional, color flow and Doppler transthoracic echocardiogram is performed. ? 2. Left ventricular chamber dimension is moderately enlarged. ? 3. Left ventricular systolic function is severely reduced, estimated at 20-25%. ? 4. There is mildly increased left ventricular wall thickness. ? 5. Left ventricular septal wall motion is abnormal with septal motion related to bundle branch block. ? 6. There is hypokinesis of the inferoseptum, anteroseptum, mid anterior and mid inferior louise. ? 7. Right ventricular systolic function is normal. ? 8. There is trace mitral valve regurgitation. ? 9. There is trace tricuspid valve regurgitation. ? 10. There is trivial pericardial effusion. Patient is being seen by Cardiology (5) Nonischemic cardiomyopathy: Code(s): I42.8 - Other cardiomyopathies Status: Acute Assessment and Plan: Patient is being seen by Cardiology Plan DVT prophylaxis -Lovenox Stress ulcer prophylaxis -Protonix Nutrition -diet ordered Code Status - Full Code Total Critical Care Time - 40 minutes Due to a high probability of clinically significant, life threatening deterioration, the patient required my highest level of preparedness to intervene emergently and I personally spent this critical care time directly and personally managing the patient. This critical care time included obtaining a history; examining the patient; pulse oximetry; ordering and review of studies; arranging urgent treatment with development of a management plan; evaluation of patient's response to treatment; frequent reassessment; and discussions with other providers. It was exclusive of separately billable procedures and treating other patients and teaching time. Please see Assessment and Plan section and the rest of the note for further information on patient assessment and treatment Distribution Systems Serviceperson Consult Note Consult date: 06/24/23 Reason for consult: Respiratory failure HPI
--- NOTE | 2023-06-24 09:06 | PM.IMPN ---
Progress Note: A&P Assessment and Plan (1) Acute respiratory failure with hypoxia and hypercapnia: Code(s): J96.01 - Acute respiratory failure with hypoxia; J96.02 - Acute respiratory failure with hypercapnia Status: Acute (2) Influenza A: Code(s): J10.1 - Influenza due to other identified influenza virus with other respiratory manifestations Status: Acute (3) Acute on chronic systolic CHF (congestive heart failure): Code(s): I50.23 - Acute on chronic systolic (congestive) heart failure Status: Acute Plan Ms. Cxo has worsening hypercapnic respiratory failure and is intermittently confused. She is non compliant with NIV and argumentative with staff. Dr. Galvan graciously accepted consultation, pt will be transferred to ICU for possible precedex use and closer monitoring with upgrade in nursing accommodation. As well, she is at risk for intubation. Repeat ABG today to assess for NIV response. Receiving lasix for acute decompensated heart failure. Cont scheduled nebs, solumedrol, tamiflu, levofloxacin. More than 100 minutes spent counseling the patient, chart review, and coordination with nursing staff and cutter operator tile. FEN: saline lock IV, NPO GI prophylaxis: protonix DVT prophylaxis: lovenox Lines: pIV Code Status: Full code Dispo: Guarded Subjective Date/time seen: 06/24/23 09:06 Interval history: cantakerous with staff. ripped her BIPAP tubing out. refusing to wear mask. she otherwise does not submit complaints. Review of Systems Review of Systems: All systems reviewed & are unremarkable except as noted in HPI and below (subjective) Exam Const: General: in distress Other: A&Ox3 Eyes: Pupils: Equal, round and reactive pupils present Neck: Neck: supple Resp: Effort & Inspection: normal respiratory effort Auscultation: crackles (mild at bases) and diminished lung sounds Cardio: Rate: regular rate Rhythm: regular rhythm Heart sounds: no gallops, no murmurs and no rubs GI: GI Palp: Yes Soft to palpation and No Tenderness to palpation present (GI) Extrem: General: edema Objective Data Vital Signs Vital Signs: Vital Signs - 24 hr 06/23/23 09:55 06/23/23 12:02 06/23/23 12:00 Temperature 98.3 F Pulse Rate 109 H 96 Respiratory Rate 26 H 32 H Blood Pressure 115/84 Pulse Oximetry 93 94 97 Oxygen Delivery Nasal Cannula Venturi Mask Oxygen Flow Rate 4 Fraction of Inspired Oxygen 06/23/23 12:00 06/23/23 13:30 06/23/23 13:44 Temperature Pulse Rate 98 90 98 Respiratory Rate 18 18 Blood Pressure Pulse Oximetry Oxygen Delivery Oxygen Flow Rate Fraction of Inspired Oxygen 06/23/23 12:00 06/23/23 16:00 06/23/23 16:00 Temperature 98.3 F Pulse Rate 98 100 93 Respiratory Rate 18 20 Blood Pressure 125/70 Pulse Oximetry 94 98 Oxygen Delivery High Flow Nasal Cannula Oxygen Flow Rate 4 Fraction of Inspired Oxygen 06/23/23 16:00 06/23/23 20:00 06/23/23 21:15 Temperature 98.4 F Pulse Rate 100 96 101 H Respiratory Rate 20 22 H 20 Blood Pressure 138/82 Pulse Oximetry 98 98 Oxygen Delivery High Flow Nasal Cannula Oxygen Flow Rate 4 Fraction of Inspired Oxygen 06/23/23 21:16 06/23/23 21:32 06/23/23 20:00 Temperature Pulse Rate 102 H Respiratory Rate 20 Blood Pressure Pulse Oximetry 94 96 Oxygen Delivery Nasal Cannula Nasal Cannula Oxygen Flow Rate 5 5 Fraction of Inspired Oxygen 06/24/23 00:00 06/23/23 20:00 06/23/23 22:00 Temperature 98.6 F Pulse Rate 86 96 102 H Respiratory Rate 24 H Blood Pressure 132/76 Pulse Oximetry 97 Oxygen Delivery Oxygen Flow Rate Fraction of Inspired Oxygen 06/24/23 00:00 06/24/23 00:00 06/24/23 02:45 Temperature Pulse Rate 83 104 H Respiratory Rate 20 Blood Pressure Pulse Oximetry 97 Oxygen Delivery BiPAP Oxygen Flow Rate Fraction of Inspired Oxygen 40 06/23/23 23:30 06/24/23
[2023-06-24 09:09] LABS: Alveolar/Arterial O2 Gradient 42.4 mmHg; Base Excess ABG 8.9 mEq/l (+/-2.0); Fractional Inspired Oxygen 32 %; HCO3 ABG 40.7 mEq/l (22.0-26.0); Oxygen Content ABG 18.7 %vol (16.0-22.0); Oxygen Saturation ABG 89.8 % (95.0-100.0); Oxyhemoglobin 92.5 % THb (90.0-100.0); PO2 ABG 70.6 mmHg (80.0-100.0); PO2 FiO2 Ratio Arterial Blood 2.21 %; Total Hemoglobin 14.4 g/dL (12.0-18.0)
[2023-06-24 09:11] LABS: pH ABG 7.234 (7.350-7.450)
[2023-06-24 09:12] LABS: Modified Allen's Test Pass; PCO2 ABG 98.4 mmHg (35.0-45.0); Site Drawn LEFT RADIAL
[2023-06-24 09:13] LABS: Device NASAL CANNULA
[2023-06-24] MEDS: levoFLOXacin 500 MG/D5W 100 ML 500 MG/100 ML BAG 100 MG IVPB (09:56)
[2023-06-24 10:56] LABS: Alveolar/Arterial O2 Gradient 63.8 mmHg; Base Excess ABG 11.9 mEq/l (+/-2.0); Fractional Inspired Oxygen 35 %; HCO3 ABG 43.5 mEq/l (22.0-26.0); Oxygen Content ABG 18.8 %vol (16.0-22.0); Oxygen Saturation ABG 91.2 % (95.0-100.0); Oxyhemoglobin 92.8 % THb (90.0-100.0); PO2 ABG 72.4 mmHg (80.0-100.0); PO2 FiO2 Ratio Arterial Blood 2.07 %; Total Hemoglobin 14.4 g/dL (12.0-18.0)
[2023-06-24 11:00] LABS: pH ABG 7.267 (7.350-7.450)
[2023-06-24 11:01] LABS: PCO2 ABG 97.5 mmHg (35.0-45.0); Site Drawn LEFT BRACHIAL
[2023-06-24] MEDS: ENOXAPARIN 30 MG/0.3 ML SYRINGE SUB-Q ×2 (11:36→20:43)
[2023-06-24] MEDS: POTASSIUM CHLORIDE 20 MEQ ER TABLET PO (11:37)
[2023-06-24] MEDS: FOLIC ACID 1 MG TABLET PO (11:37)
[2023-06-24] MEDS: oxyCODONE/ACETAMINOPHEN (*CRX) 10-325 MG TABLET 1 TAB PO ×2 (12:16→23:27)
[2023-06-24] MEDS: OSELTAMIVIR PHOSPHATE 75 MG CAPSULE PO ×2 (12:17→20:45)
[2023-06-24] MEDS: LORATADINE/PSEUDOEPHEDRINE (*CRX) 10/240 MG TABLET ER 24 HR 1 TAB PO (12:17)
[2023-06-24] MEDS: bisoproloL fumarate 5 MG TABLET PO (12:17)
[2023-06-24] MEDS: IRBESARTAN 75 MG TABLET PO (12:18)
[2023-06-24] MEDS: CYANOCOBALAMIN 1,000 MCG TABLET 1000 MCG PO (12:19)
--- NOTE | 2023-06-24 14:35 | ECG_ITS ---
Measurements Intervals [place] Rate: 95 P: -40 MO: 145 QRS: -63 QRSD: 166 T: 64 QT: 396 QTc: 500 Interpretive Statements SINUS RHYTHM LEFT AXIS DEVIATION LEFT BUNDLE BRANCH BLOCK BASELINE ARTIFACT- I, III, AVR, AVL, AVF ABNORMAL ECG COMPARED TO ECG 06/22/2023 17:24:28 SINUS RHYTHM NOW PRESENT Electronically Signed On 06-25-2023 13:41:50 [employer]ARY [employer]UM TANNER by Hernandez Wells D.O.
[2023-06-24] MEDS: MORPHINE SULFATE (*CRX) 4 MG/ML INJ IV PUSH (15:00)
[2023-06-24 15:46] LABS: Troponin I 0.093 ng/mL (0.000-0.034)
[2023-06-24] MEDS: FUROSEMIDE INJ 40 MG/4 ML VIAL IV PUSH (17:57)
[2023-06-24] MEDS: dexmedeTOMIDine 400 MCG/100 ML 400 MCG/100 ML BAG 5.82 MCG IV CONT (20:40)
[2023-06-24 21:55] LABS: Troponin I 0.099 ng/mL (0.000-0.034)
--- NOTE | 2023-06-25 06:41 | PM.TDS ---
Transfer Discharge Sum: Prov Provider Date of admission: 06/22/23 21:20 Primary care physician: PHYSICIAN NOT ON STAFF Admitting clinician: Eber Hadley MD Attending physician on admission: Michaela Pulliam Consults: 06/22/23 Consult to Physician Routine Comment: Consulting Provider: Rose Marie James conservation of resources commissioner/MD group to consult: Jacob Reason for consultation: elevated troponin, EF less than 20%. Please evaluate. Thanks Has provider been notified: Yes 06/24/23 Consult to Physician Routine Comment: Consulting Provider: Royce Galvan conservation of resources commissioner/MD group to consult: critical care Reason for consultation: hypercapnia Has provider been notified: Yes Attending physician on discharge: Michaela Pulliam Discharging clinician: Michaela Pulliam Anticipated date of transfer: 06/24/23 DS: Admitting Diagnosis Discharge Date 06/24/23 Admitting Diagnosis hypoxic respiratory failure DS: Discharge Diagnosis Discharge Diagnosis (1) Acute on chronic respiratory failure with hypoxia and hypercapnia: Code(s): J96.21 - Acute and chronic respiratory failure with hypoxia; J96.22 - Acute and chronic respiratory failure with hypercapnia Status: Acute (2) Influenza A: Code(s): J10.1 - Influenza due to other identified influenza virus with other respiratory manifestations Status: Acute (3) Elevated troponin: Code(s): R79.89 - Other specified abnormal findings of blood chemistry Status: Acute (4) Noncompliance with medication regimen: Code(s): Z91.148 - Patient's other noncompliance with medication regimen for other reason Status: Acute (5) Acute on chronic systolic CHF (congestive heart failure): Code(s): I50.23 - Acute on chronic systolic (congestive) heart failure Status: Acute (6) LBBB (left bundle branch block): Code(s): I44.7 - Left bundle-branch block, unspecified Status: Acute (7) CAP (community acquired pneumonia): Code(s): J18.9 - Pneumonia, unspecified organism Status: Acute Plan 63F w/ PMH asthma/COPD, morbid obesity, bipolar, HFrEF 25-30% refused lifevest, depression, HLD, HTN, LBBB, hx of CVA/TIA, noncompliance with suggested medical therapies presented with SOB on 06/22/23 She was treated for acute hypoxic and hypercapnic respiratory failure, acute copd exacerbation, CAP, flu A, acute decompensated heart failure with lasix, BIPAP, solumedrol, duonebs, levofloxacin and tamiflu. Her PaCO2 as high as 98.4 on ABG and 119.5 on VBG. She was transferred to [facility] at her personal request. She was in stable but guarded condition and Full Code on discharge. Transfer Discharge Sum: Med Medications Active and Home Medications: Home Medications albuterol sulfate 90 mcg/actuation aerosol inhaler (ProAir HFA) 2 puff inhalation QID PRN Shortness Of Breath 07/05/19 [History Confirmed 06/23/23] bisoprolol fumarate 5 mg tablet 5 mg PO DAILY 07/05/19 [History Confirmed 06/23/23] budesonide-formoterol HFA 160 mcg-4.5 mcg/actuation aerosol inhaler (Symbicort) 2 puff inhalation Q12H 07/05/19 [History Confirmed 06/23/23] fexofenadine 60 mg-pseudoephedrine ER 120 mg tablet,ext.release,12 hr (Liz-D 12 Hour) 60 - 120 tablet PO DAILY 07/05/19 [History Confirmed 06/23/23] prednisone 10 mg tablet 10 mg PO DIRECTED #30 tabs 07/08/19 [Rx Confirmed 06/23/23] oxycodone-acetaminophen 10 mg-325 mg tablet 1 tablet PO Q8H PRN Pain 12/09/22 [History Confirmed 06/23/23] acetaminophen 325 mg tablet (Mapap (acetaminophen)) 650 mg PO Q4H PRN Mild Pain (1-3) Or Fever #60 tabs 12/12/22 [Rx Confirmed 06/23/23] cyanocobalamin (vitamin B-12) 1,000 mcg tablet (Vitamin B-12) 1,000 mcg PO QAM #30 tabs 12/12/22 [Rx Confirmed 06/23/23] folic acid 1 mg tablet 1 mg PO DAILY #30 tabs 12/12/22 [Rx Confirmed 06/23/23] furosemide 40 mg tablet (Lasix) 40 mg PO BID #60 tabs 12/12/22 [Rx Confirmed 06/23/23] irbesartan 75 mg tablet (Avapro) 75 mg PO QAM #30 tabs 12/12/22 [Rx Confirmed
[2023-06-26 07:23] LABS: Legionella pneumophila Ag Ur Not Detected (Not Detected)
[2023-06-27 04:20] LABS: Pneumococcal Antigen Urine Not Detected (Not Detected)
[2023-06-28 10:54] LABS: Non-Invasive Expiratory Pressure 6 CMH2O; Non-Invasive Vent Rate 12 /MIN
[2023-06-28 10:55] LABS: Device NON-INVASIVE VENT
== END 2023-06-24 23:30 | disposition short-term general hospital (02) | DRG 193 ==
LOC: ANHED 21:20 → ANHIMU 22:10 → ANHICU 06-27 13:06 → ANHIMU 06-27 13:06
PROVIDERS: Internal Medicine; Admitting Provider Family Medicine; Emergency Provider Student in an Organized Health Care Education/Training Program; Visit Provider General Practice
DX: J10.01 Influenza due to other identified influenza virus with the same other identified influenza virus pneumonia (principal); I50.23 Acute on chronic systolic (congestive) heart failure; J96.21 Acute and chronic respiratory failure with hypoxia; J96.22 Acute and chronic respiratory failure with hypercapnia; Z68.41 Body mass index [BMI] 40.0-44.9, adult; I24.89 Other forms of acute ischemic heart disease; J44.0 Chronic obstructive pulmonary disease with (acute) lower respiratory infection; J44.1 Chronic obstructive pulmonary disease with (acute) exacerbation; I42.8 Other cardiomyopathies; I11.0 Hypertensive heart disease with heart failure; I44.7 Left bundle-branch block, unspecified; E78.5 Hyperlipidemia, unspecified; Z91.198 Patient's noncompliance with other medical treatment and regimen for other reason; E66.01 Morbid (severe) obesity due to excess calories; M19.91 Primary osteoarthritis, unspecified site; Z20.822 Contact with and (suspected) exposure to COVID-19; M81.0 Age-related osteoporosis without current pathological fracture; F31.9 Bipolar disorder, unspecified; Z86.73 Personal history of transient ischemic attack (TIA), and cerebral infarction without residual deficits; Z90.49 Acquired absence of other specified parts of digestive tract; Z87.891 Personal history of nicotine dependence
CPT/HCPCS: 36415; 36600; 71045; 80048; 80053; 81001; 82803; 82805; 83605; 83735; 83880; 84100; 84145; 84484; 85025; 85027; 85610; 85730; 87040; 87449; 87637; 87899; 93005; 94002; 94003; 94640; 96374; 99285; A9270; J1650; J1940; J1956; J2270; J2930

== ENCOUNTER 2023-08-06 19:53 | Emergency (ER) | payer BC, SELFPAY ==
[2023-08-06 20:00] VITALS: O2SAT 95
[2023-08-06 20:02] VITALS: BP 117/72; PULSE 90; RESP 16; TEMP 36.7; O2SAT 91
--- NOTE | 2023-08-06 20:17 | PC.NURSE ---
2013 Called poison control, spoke with Terrence. He states to observe patient 4 hrs from ingestion for concerning symptoms, respiratory depression and give narcan as needed. They are aware of patient since she called her self immediately after ingesting meds at 1900. Case number given [id number].
[2023-08-06 20:35] VITALS: PULSE 86
[2023-08-06 20:40] VITALS: RESP 13
[2023-08-06 20:41] VITALS: BP 128/87; PULSE 88; RESP 15; TEMP 36.6; O2SAT 93
--- NOTE | 2023-08-06 20:43 | ED.OVERDOSE ---
HPI - Overdose General Chief Complaint: Overdose Stated Complaint: Took wrong meds Time Seen by Provider: 08/06/23 20:22 Source: patient Limitations: no limitations History of Present Illness HPI Narrative: Patient is a 63-year-old female presents to the emergency department complaining of an accidental overdose. Patient states that she typically takes oxycodone 10 mg of 325 mg and has been doing so for the past 5-6 years however she accidentally tonight around 6:50 p.m. took her typical 1 pill and then was going to take her other nighttime medications which had a similar color top on the bottle and accidentally took 3 more of the dentistry 25 mg oxycodone so with acetaminophen. Patient states that she called poison control and she was told to come to the emergency department. Patient denies any current complaints aside from mild tiredness. Patient denies suicidal or homicidal ideations. Patient denies any difficulty breathing, chest pain, recent injuries, recent illness. Related Data Home Medications Medication Instructions Recorded Confirmed albuterol sulfate 90 mcg/actuation 2 puff inhalation QID PRN 07/05/19 06/23/23 aerosol inhaler (ProAir HFA) Shortness Of Breath bisoprolol fumarate 5 mg tablet 5 mg PO DAILY 07/05/19 06/23/23 budesonide-formoterol HFA 160 2 puff inhalation Q12H 07/05/19 06/23/23 mcg-4.5 mcg/actuation aerosol inhaler (Symbicort) fexofenadine 60 mg-pseudoephedrine 60 - 120 tablet PO DAILY 07/05/19 06/23/23 ER 120 mg tablet,ext.release,12 hr (Liz-D 12 Hour) oxycodone-acetaminophen 10 mg-325 1 tablet PO Q8H PRN Pain 12/09/22 06/23/23 mg tablet Allergies Allergy/AdvReac Type Severity Reaction Status Date / Time shellfish derived Allergy Intermediate Hives Verified 02/04/20 13:49 cephalexin Allergy Mild HIVES Verified 02/04/20 13:49 adhesive tape Allergy Rash Verified 02/04/20 13:49 aspirin AdvReac Unknown STOMACH Verified 02/04/20 13:49 IRRITATION ibuprofen AdvReac Unknown STOMACH Verified 02/04/20 13:49 IRRITATION METAL Allergy Intermediate Unknown Uncoded 02/04/20 13:49 SHELLFISH Allergy Intermediate HIVES Uncoded 02/04/20 13:49 MULTIPLE ANTIBIOTICS Allergy Mild Unknown Uncoded 02/04/20 13:49 Review of Systems Review of Systems: A 10 system review of systems was completed on the patient and is negative except for what is stated in the HPI. Nursing and ancillary documentation was reviewed. [facility] Past Medical History Medical History Anxiety Arthritis Asthma Bipolar 1 disorder Bronchitis CHF (congestive heart failure), NYHA class I COPD (chronic obstructive pulmonary disease) Depression Family history of head, eyes, ears, nose, and throat (HEENT) problems Herniated disc History of stroke HLD (hyperlipidemia) HTN (hypertension) LBBB (left bundle branch block) Lumbar herniated disc Nonischemic cardiomyopathy Osteoporosis Bilateral hips but unable to have surgery due to her respiratory problems TIA (transient ischemic attack) Surgical History Surgical History H/O section H/O tubal ligation Hx of cholecystectomy Hx of tonsillectomy Family History Family History Father Diabetes mellitus Heart disease Hypertension Mother Metastatic cancer Other Family history of arthritis Family history of cardiovascular disease Family history of malignant neoplasm History of blood clots Social History Social History Social History: The patient has 1 son who is Carlitos and Carlitos is her durable power behavioral consultant for healthcare. She wishes to be a full code. She is disabled. She is . She stated that she quit smoking on and off for many years and was down to just a few cigarettes a day. She stated she has not smoked a cigarette in 7 days. [place]
[2023-08-06 22:58] VITALS: BP 106/91; PULSE 69; RESP 12; TEMP 36.6; O2SAT 96
== END 2023-08-06 23:05 | disposition home or self-care (01) ==
PROVIDERS: Emergency Provider Student in an Organized Health Care Education/Training Program
DX: T50.7X1A Poisoning by analeptics and opioid receptor antagonists, accidental (unintentional), initial encounter (principal); I50.9 Heart failure, unspecified; I11.0 Hypertensive heart disease with heart failure; J44.9 Chronic obstructive pulmonary disease, unspecified; E78.5 Hyperlipidemia, unspecified; M19.90 Unspecified osteoarthritis, unspecified site; M81.0 Age-related osteoporosis without current pathological fracture; Z86.73 Personal history of transient ischemic attack (TIA), and cerebral infarction without residual deficits; Z87.891 Personal history of nicotine dependence; Z90.49 Acquired absence of other specified parts of digestive tract
CPT/HCPCS: 99284

== ENCOUNTER 2023-12-29 14:21 | Outpatient (CLI) | payer BC, SELFPAY ==
--- NOTE | ~2023-12-29 | MR_ITS ---
EXAMINATION: MR lumbar spine wo con DATE: 12/29/2023 15:36 INDICATION: Other intervertebral disk displacement, lumbar region. TECHNIQUE: Magnetic resonance imaging (MRI) of the lumbar spine was performed without intravenous con trast. Sequences included sagittal T2-weighted FSE, sagittal T2-weighted FS FSE, sagittal T1-weighted FSE, and axial T2-weighted FSE. COMPARISON: Lumbar spine MRI 08/17/2018 FINDINGS: There is 5 degrees levocurvature of lumbar spine. There is 3 mm anterolisthesis of L4 on L5 . There is mild chronic anterior wedging of T11 and T12 vertebral bodies. There is moderately decreas ed disc height at T11-T12, mildly decreased disc height at T12-L1, and moderately decreased disc heig ht at L5-S1. The distal spinal cord signal intensity is normal. The conus medullaris is at T12-L1. Th e following disc levels are specifically discussed: L1-L2: The disc does not extend beyond the endplate margin. There is severe bilateral facet joint ost eoarthritis. There is no neural foraminal stenosis. There is no central canal stenosis. L2-L3: The disc is bulging. There is severe bilateral facet joint osteoarthritis. There is mild bilat eral neural foraminal stenosis. There is no central canal stenosis. L3-L4: The disc is bulging. There is severe bilateral facet joint osteoarthritis. There is mild bilat eral neural foraminal stenosis. There is mild central canal stenosis. L4-L5: The disc is bulging. There is severe bilateral facet joint osteoarthritis. There is mild bilat eral neural foraminal stenosis. There is mild central canal stenosis. L5-S1: The disc is bulging and has an annular fissure. There is severe bilateral facet joint osteoart hritis. There is mild bilateral neural foraminal stenosis. There is mild central canal stenosis. IMPRESSION: 1. Moderate lumbar spondylosis, stable from 08/17/2018. Reviewed, dictated and finalized at location E.
== END 2023-12-29 14:22 | disposition home or self-care (01) ==
PROVIDERS: PCP Nurse Practitioner Family; Visit Provider Nurse Practitioner Family
DX: M51.26 Other intervertebral disc displacement, lumbar region (principal); M47.26 Other spondylosis with radiculopathy, lumbar region
CPT/HCPCS: 72148

== ENCOUNTER 2024-01-23 12:31 | Outpatient (RCR) | payer BC, SELFPAY ==
--- NOTE | 2024-01-23 13:44 | OTOPEVDC ---
Assessment and note entered by Jaime Obregon, ERYNR/Dom, CHT Evaluation Information Subjective Information Patient referred to our clinic for a power wheelchair evaluation. She comes with the dx of spinal stenosis. Please refer to 12 page seating/ mobility evaluation form for details. Assessment OT Clinical Summary This patient is unable to safely and independently ambulate household distances due to her current impairments of weakness, pain, decreased joint ROM , pain, and limited functional standing tolerance and balance. She is at high risk for falls due to decreased balance, back/hip pain, and history of near falls. This patient demonstrates significant functional mobility limitations that impairs her ability to safely participate in mobility related activities of daily living. These limitations cannot be sufficiently resolved by the use of an appropriately fitted cane, walker, or manual wheelchair. Due to pain, weakness, and limited functional endurance, patient is not a safe and functional ambulator with an optimally fitted walker or cane. She is unable to propel a manual wheelchair due to shoulder pain, ROM limitations, and decreased functional endurance. A scooter is not a safe option due to difficulties with transfers on/off and only being able to operate the tiller system with 1 hand due to shoulder pain . This patient will greatly benefit from the use of a power wheelchair because she is unable to safely participate in ADLs and mobility tasks. She has been evaluated and demonstrates the gross motor, fine motor, and cognitive ability to safely operate a power wheelchair. Without the use of a power wheelchair, this patient would be confined to a bed. With a power wheelchair, this patient is able to perform daily tasks with improved performance, independence, and tolerance. Plan of Care OT Services Indicated No Treatment Frequency and D/C - OT today for eval only. Duration
== END 2024-01-23 15:40 | disposition home or self-care (01) ==
LOC: ANHOT 12:31
PROVIDERS: PCP Nurse Practitioner Family
DX: M48.061 Spinal stenosis, lumbar region without neurogenic claudication (principal)
CPT/HCPCS: 97167

== ENCOUNTER 2025-04-20 22:42 | Emergency (ER) | payer MEDICARE, BC, SELFPAY ==
--- OUTSIDE RECORDS SUMMARY | 2002-02-06 08:15 | XMS_ITS | Continuity of Care Document ---
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 [address] , [address], [place], [address], [place]. tel:[phone] Family History Family Member Type Diagnosis Age At Onset No Information Payers Payer name Insurance type Covered green party ID Authoriza tion(s) Medicaid [facility] [id number] Social History Type Description Quantity Date Captured [...]
[2025-04-20] VITALS (8 sets, daily range): BP systolic 151; BP diastolic 84; PULSE 78–96; RESP 20–25; TEMP 37.3; O2SAT 94–95
--- NOTE | ~2025-04-20 | CT_ITS ---
EXAMINATION:CT diagnostic chest w con DATE: 04/21/2025 01:19 INDICATION: Shortness of breath. TECHNIQUE: Computed tomography (CT) of the chest was performed with 75 mL Omnipaque 350 intravenous contrast. Automated exposure control and iterative reconstruction technique were employed. The dose-length product (DLP) was 950.88 mGy-cm. COMPARISON: None. FINDINGS: There is mild emphysema. There is a 14 mm nodule in right lung upper lobe. No pleural effusion. The heart size is normal. There are coronary artery calcifications. No pericardial effusion. There are changes of cholecystectomy. There is severe cervical and thoracic spondylosis. There is mild chronic anterior wedging of multiple thoracic vertebral bodies. IMPRESSION: 1. 14 mm right upper lobe pulmonary nodule suspicious for primary bronchogenic carcinoma. CT-guided biopsy is recommended. 2. Mild emphysema. Reviewed, dictated and finalized at location E. ING MAN
--- NOTE | ~2025-04-20 | XR_ITS ---
Examination: XR chest 1V portable Clinical History: SOB Comparison: None Technique: Portable AP Findings: Heart size normal. Lungs clear. Relative hyperlucency left lung consistent with soft tissue artifact over right lung. 15 mm pulmonary nodule right lung on subsequent CT not identified on portable x-ray. No acute bony abnormality. IMPRESSION: 1. No acute cardiopulmonary findings given portable technique. 2. 15 mm pulmonary nodule on subsequent CT chest. Recommend PET/CT biopsy. Reviewed, dictated and finalized at location R. T END TECHNICIAN
--- NOTE | 2025-04-20 22:40 | PC.NURSE ---
This RN attempted to have pt give a urine sample. Pt refuses and states she can't and it will be a while. This RN will try again shortly.
--- NOTE | 2025-04-20 22:49 | ECG_ITS ---
Test Date: 2025-04-20 22:59:19 Measurements Intervals [place] Rate: 87 P: -1 [place]: 164 QRS: -63 QRSD: 156 T: 71 QT: 418 QTc: 505 Interpretive Statements SINUS RHYTHM LEFT AXIS DEVIATION [QRS AXIS < -30] LEFT BUNDLE BRANCH BLOCK [120+ ms QRS DURATION, 80+ ms Q/S IN V1/V2, 85+ ms R IN I/aVL/V5/V6] No previous ECG available for comparison Electronically Signed On 04-21-2025 03:10:41 ACTIVE DIRECTORY ARCHITECT by Rakan Ruff M.D.
--- NOTE | 2025-04-20 23:13 | ED.SOB ---
HPI - SOB/Dyspnea General Chief Complaint: Shortness of Breath/Dyspnea <Rebecca Caba APRN - Last Filed: 04/21/25 03:36> Stated Complaint: dyspnea <Rebecca Caba APRN - Last Filed: 04/21/25 03:36> Time Seen by Provider: 04/20/25 23:02 <Rebecca Caba APRN - Last Filed: 04/21/25 03:36> History of Present Illness HPI Narrative: Patient is a 65-year-old female who presents to the ER with shortness of breath. She reports she started experiencing these symptoms approximately 1 week ago. Patient reports today they have worsened. She reports she has not been taking her Lasix because it gives her ?cotton mouth. Patient endorses a history of congestive heart failure, anxiety, arthritis, COPD, bipolar disorder, high blood pressure, left bundle branch block, chronic back pain and cardiomyopathy. She denies any lower extremity swelling, recent fevers, or abdominal pain. Patient reports her anxiety is playing a part in her shortness of breath. <Rebecca Caba APRN - Last Filed: 04/21/25 03:36> Related Data Home Medications: Home Medications ?Medication ?Instructions ?Recorded ?Confirmed ?Last Taken ?Type bisoprolol fumarate 5 mg tablet 5 mg PO DAILY 07/05/19 04/10/25 Unknown History budesonide-formoterol HFA 160 2 puff inhalation Q12H 07/05/19 04/10/25 Unknown History mcg-4.5 mcg/actuation aerosol inhaler (Symbicort) fluticasone propionate 50 2 spray intranasal BID 12/08/23 04/10/25 Unknown History mcg/actuation nasal spray,suspension sacubitril 24 mg-valsartan 26 mg 1 tablet PO BID 12/08/23 04/10/25 Unknown History tablet (Entresto) albuterol sulfate 2.5 mg/3 mL 2.5 mg inhalation Q6H PRN 03/08/24 04/10/25 Unknown History (0.083 %) solution for nebulization [id number] 250 1 tablet PO .PRN PRN 05/31/24 04/10/25 Unknown History mg-250 mg-65 mg tablet (Excedrin Extra Strength) apixaban 5 mg tablet (Eliquis) 5 mg PO BID 04/10/25 04/10/25 Unknown History <Rebecca Caba APRN - Last Filed: 04/21/25 03:36> Allergies/Adverse Reactions: Allergies Allergy/AdvReac Type Severity Reaction Status Date / Time shellfish derived Allergy Intermediate Hives Verified 04/20/25 22:50 cephalexin Allergy Mild HIVES Verified 04/20/25 22:50 adhesive tape Allergy Rash Verified 04/20/25 22:50 empagliflozin (From AdvReac Intermediate Other Verified 04/20/25 22:50 Jardiance) aspirin AdvReac Unknown STOMACH Verified 04/20/25 22:50 IRRITATION ibuprofen AdvReac Unknown STOMACH Verified 04/20/25 22:50 IRRITATION METAL Allergy Intermediate Unknown Uncoded 04/10/25 15:45 SHELLFISH Allergy Intermediate HIVES Uncoded 04/10/25 15:45 MULTIPLE ANTIBIOTICS Allergy Mild Unknown Uncoded 04/10/25 15:45 <Rebecca Caba APRN - Last Filed: 04/21/25 03:36> Review of Systems Review of Systems: All systems reviewed & are unremarkable except as noted in HPI and below <Rebecca Caba APRN - Last Filed: 04/21/25 03:36> PMFSH Past Medical History Medical History: Medical History Atrial fibrillation CAD (coronary artery disease) History of tobacco abuse History of stroke LBBB (left bundle branch block) Nonischemic cardiomyopathy CHF (congestive heart failure), NYHA class I Anxiety Bipolar 1 disorder Depression Lumbar herniated disc Osteoporosis Bilateral hips but unable to have surgery due to her respiratory problems Arthritis Asthma COPD (chronic obstructive pulmonary disease) HTN (hypertension) HLD (hyperlipidemia) TIA (transient ischemic attack) <Rebecca Caba APRN - Last Filed: 04/21/25 03:36> Surgical History Surgical History: Surgical History H/O section H/O tubal ligation Hx of cholecystectomy Hx of tonsillectomy <Rebecca Caba APRN - Last Filed: 04/21/25 03:36> Family History Family History: Family History Father Diabetes mellitus Heart disease Hypertension Mother Metastatic cancer Thyroid disorder Son Depression Anxiety Grandparent Cancer Depression Anxiety Heart problem Grandparent Diabetes mellitus Other Family history of arthritis Family history of cardiovascular disease Family history of malignant neoplasm History of blood clots <Rebecca Caba APRN - Last Filed: 04/21/25 03:36> Social History Social History: Social History Social History: The patient has 1 son who is Carlitos and Carlitos is her durable power commercial litigation attorney for healthcare. She wishes to be a full code. She is disabled. She is . She stated that she quit smoking on and off for many years and was down to just a few cigarettes a day. Smoking packs per day: 1 Smoking cigarettes per day: 20.0 Years smoked: 40 Smoking pack-years: 40.00 Smoking status: Former smoker Tobacco type: cigarettes Second hand tobacco smoke exposure: Yes Smoking end date: 12/17/22 Alcohol intake: former Substance use: current Substance use type: marijuana Other substance usage details: marijana, medical card, back pain control Do You Feel Safe in your Home?: Yes Lack of Transportation: No Lack of Food: Never True Current Housing: I Have Housing Concerned About Future Housing: No Difficulty Paying Gas/Electric Bills: No Difficulty Paying for Meds: YES Currently Unemployed: No Education: High School Diploma/GED Difficulty w/ Childcare or Family Care: No Living arrangements: alone Occupation/Education: other Gender identity (if verbalized by the patient): Female Spiritual care concerns: No Agree to blood products: Yes <Rebecca Caba APRN - Last Filed: 04/21/25 03:36> Exam Narrative: GENERAL: Ill appearing, obese, non-toxic, in mild respiratory distress. HEAD: Normocephalic, atraumatic. NECK: Supple. No adenopathy, no masses. RESPIRATORY: Airway patent, respirations labored. + wheezing all four quadrants CARDIOVASCULAR: Regular rate and rhythm without murmurs, rubs, or gallops. Peripheral pulses 2+ and equal bilaterally. No pitting edema ABDOMINAL: Soft, nontender, nondistended, no hepatosplenomegaly. Normoactive BS. MUSCULOSKELETAL: Moves all extremities. Strength/ROM intact without gross deformities. SKIN: Warm, dry, normal color. No rashes. NEURO: A&O X3. Speech clear. Cranial nerves II-XII intact. No ataxic movements. PSYCHIATRIC: Appropriate mood and affect. Normal interaction. <Rebecca Caba APRN - Last Filed: 04/21/25 03:36> Course Course Emergency Course: Patient care signed over by previous provider pending CT scan results. Patient re-evaluated resting comfortably in her stretcher without any apparent distress. Saturating 95% on her home 2 L nasal cannula dose. No fever. No tachycardia or blood pressure concerns raised. X-ray and CT scan were both independent reviewed without any acute abnormality. Radiology shows a 1.5 cm pulmonary nodule in the right upper lobe which needs follow-up CT outpatient in 3 months of per rads guidelines. No other acute process. Patient has no urgent or emergent concerns identified today and on her home oxygen dose without any respiratory compromise. Spoke to the patient and relayed this information to her. She thinks this is all anxiety mediated and I with agree with her at this juncture as we have ruled out most emergent or urgent processes. She states she has been offered anxiety medicine by her PCP before but declined that she did not want to start taking them but I encouraged her to reach out for follow-up and anxiety medication outpatient. Patient also inquired about new nebulization solution instead of albuterol so I sent over a prescription for ipratropium as well. Safe for discharge with regular primary care provider follow-up. <Lucio Carter MD - Last Filed: 04/21/25 05:15> Vital Signs Vital signs: Vital Signs Temperature 37.3 C 04/20/25 22:40 Pulse Rate 93 04/20/25 22:40 Respiratory Rate 25 H 04/20/25 22:40 Blood Pressure 151/84 H 04/20/25 22:40 Pulse Oximetry 95 04/20/25 22:40 Oxygen Delivery High Flow Nasal Cannula 04/20/25 22:40 Oxygen Flow Rate 2 04/20/25 22:40 Temperature 37.3 C 04/20/25 22:40 Pulse Rate 74 04/21/25 04:32 Respiratory Rate 23 H 04/21/25 04:32 Blood Pressure 139/47 L 04/21/25 04:32 Pulse Oximetry 95 04/21/25 04:32 Oxygen Delivery Nasal Cannula 04/20/25 22:53 Oxygen Flow Rate 2 04/20/25 22:53 <Rebecca Caba APRN - Last Filed: 04/21/25 03:36> Vital Signs Temperature 37.3 C 04/20/25 22:40 Pulse Rate 93 04/20/25 22:40 Respiratory Rate 25 H 04/20/25 22:40 Blood Pressure 151/84 H 04/20/25 22:40 Pulse Oximetry 95 04/20/25 22:40 Oxygen Delivery High Flow Nasal Cannula 04/20/25 22:40 Oxygen Flow Rate 2 04/20/25 22:40 Temperature 37.3 C 04/20/25 22:40 Pulse Rate 74 04/21/25 04:32 Respiratory Rate 23 H 04/21/25 04:32 Blood Pressure 139/47 L 04/21/25 04:32 Pulse Oximetry 95 04/21/25 04:32 Oxygen Delivery Nasal Cannula 04/20/25 22:53 Oxygen Flow Rate 2 04/20/25 22:53 <Lucio Carter MD - Last Filed: 04/21/25 05:15> MDM - SOB/Dyspnea MDM Narrative Medical decision making narrative: Patient is a 65-year-old female who presents to the ER with shortness of breath. She reports she started experiencing these symptoms approximately 1 week ago. Patient reports today they have worsened. She reports she has not been taking her Lasix because it gives her ?cotton mouth. Patient endorses a history of congestive heart failure, anxiety, arthritis, COPD, bipolar disorder, high blood pressure, left bundle branch block, chronic back pain and cardiomyopathy. She denies any lower extremity swelling, recent fevers, or abdominal pain. Patient reports her anxiety is playing a part in her shortness of breath. Labs Ordered: CBC, CMP, troponin, COVID/flu/RSV, INR, PTT, magnesium, proBNP, D-dimer, ABG, UA, UDS Imaging Ordered: Chest x-ray, CT diagnostic chest Medications Ordered: Valium IV, Lasix IV, Percocet PO, Methylprednisone IV, Ativan 1mg PO Risks: Age-Adjusted D-dimer for Venous Thromboembolism (VTE) from [facility] on 04/21/2025 All calculations should be rechecked by clinician prior to use RESULT SUMMARY: 650 ?g/L Age-adjusted D-dimer cutoff, FEU VTE unlikely Reported D-dimer is less than or equal to cutoff; consider alternative diagnosis INPUTS: Age ?> 65 years D-dimer level reported by lab ?> 0.58 ?g/L D-dimer unit type ?> 0 = FEU (unadjusted cutoff typically ~500 or 0.50) 0330-Care signed out to Dr. Carter pending CT scan results. <Rebecca Caba, SUPERVISOR PACKING ROOM - Last Filed: 04/21/25 03:36> Differential Diagnosis Differential diagnosis: Likely acute exacerbation of chronic obstructive airways disease, congestive heart failure, community acquired pneumonia, asthma with exacerbation and pulmonary embolism <Rebecca Caba SUPERVISOR [employer]ING RO[employer] - Last Filed: 04/21/25 03:36> Lab Data Attestation: I reviewed the patient's lab results. <Rebecca Caba SUPERVISOR [employer]ING RO[employer] - Last Filed: 04/21/25 03:36> Result diagrams: 04/20/25 23:20 04/20/25 23:20 <Rebecca Caba SUPER[employer] RO[employer] - Last Filed: 04/21/25 03:36> Labs: Lab Results 04/20/25 04/21/25 Range/Units 23:20 01:48 MANAGER FORMS WBC 7.8 (4.5-10.0) K/mm3 RBC 5.00 (4.2-5.4) M/mm3 Hgb 14.5 (12.0-15.0) g/dL Hct 47.6 H (37.0-47.0) % MCV 95.2 (80-100) fl MCH 29.0 (26-34) pg MCHC 30.5 L (32-36) g/dl RDW 14.3 (11.5-14.5) % Plt Count 220 (150-375) k/mm3 MPV 10.8 H (7.4-10.4) fl Immature Gran % (Auto) 0.4 (0-0.5) % Neut % (Auto) 83.2 H (45.5-73.1) % Lymph % (Auto) 11.2 L (18.3-44.2) % [place] % (Auto) 5.1 (2.6-8.5) % Eos % (Auto) 0.0 (0-4.4) % Baso % (Auto) 0.1 L (0.2-1.2) % Lymph # (Auto) 0.88 L (0.9-3.2) K/mm3 [place] # (Auto) 0.4 (0.1-0.6) K/mm3 Eos # (Auto) 0.0 (0-0.3) K/mm3 Baso # (Auto) 0.0 (0.0-0.1) K/mm3 Abs Immat Gran (auto) 0.03 (0.00-0.031) K/mm3 Absolute Neuts (auto) 6.5 (1.3-6.7) K/mm3 Absolute Nucleated RBC 0.000 (0.0-0.012) K/mm3 Nucleated RBC % 0.0 (0.0-0.2) % PT 13.8 (11.1-14.7) Seconds INR 1.1 APTT 27.0 (22.3-36.8) Seconds D-Dimer 0.58 H (<0.48) ug/mL Sodium 136 L (137-145) mmol/L Potassium 4.2 (3.4-5.0) mmol/L Chloride 99 (98-107) mmol/L Carbon Dioxide 31 H (22-30) mmol/L Anion Gap 6 (4-12) mmol/L BUN 20 H D (7-17) mg/dL Creatinine 0.71 (0.7-1.0) mg/dL Estim Creat Clear Calc 86 ml/min Estimated GFR > 60 (59 - ) Glucose 143 H (65-110) mg/dL Calcium 9.0 (8.4-10.2) mg/dL Magnesium 2.2 (1.6-2.3) mg/dL Total Bilirubin 0.5 (0.2-1.3) mg/dL AST 38 H (14-36) U/L ALT 100 H (6-35) U/L Alkaline Phosphatase 76 (38-126) U/L Troponin I 0.025 (0.000-0.034) ng/mL NT-Pro-B Natriuret Pep 1580 H (19.9-100) pg/mL Total Protein 7.8 (6.3-8.2) g/dL Albumin 4.3 (3.5-5.1) g/dL Urine Color Yellow (Yellow) Urine Appearance Clear (Clear) Urine pH 6.5 (5.0-9.0) Ur Specific [place] 1.014 (1.001-1.035) Urine Protein 1+ H (Negative) mg/dL Urine Glucose (UA) Negative (Negative) mg/dL Urine Ketones Negative (Negative) mg/dL Ur Blood (Man) Negative (Negative) Urine Nitrate Negative (Negative) Urine Bilirubin Negative (Negative) Urine Urobilinogen 0.2 (<2.0) mg/dL Leukocyte Esterase Rfl Negative (Negative) ROBERTO CARLOS/UL Urine RBC 0-2 (0-2) /hpf Urine WBC 0-5 (0-3) /hpf Ur Squamous Epith Cells None seen (Few) /hpf Urine Bacteria None seen /hpf Urine Casts 0-2 Urine Opiates Screen Positive A (Negative) Urine Methadone Screen Negative (Negative) Ur Barbiturates Screen Negative (Negative) Ur Phencyclidine Scrn Negative (Negative) Ur Amphetamine Screen Negative (Negative) U Benzodiazepines Scrn Negative (Negative) Urine Cocaine Screen Negative (Negative) U Cannabinoids Screen Positive A (Negative) Influenza A (RT-PCR) Negative (Negative) Influenza B (RT-PCR) Negative (Negative) RSV (RT-PCR) Negative (Negative) SARS-CoV-2 RNA (RT-PCR) Negative (Negative) <Rebecca Caba, SUPERVISOR P[employer]ING ROOM - Last Filed: 04/21/25 03:36> Lab Results 04/20/25 04/21/25 Range/Units 23:20 01:48 MANAGER FORMS WBC 7.8 (4.5-10.0) K/mm3 RBC 5.00 (4.2-5.4) M/mm3 Hgb 14.5 (12.0-15.0) g/dL Hct 47.6 H (37.0-47.0) % MCV 95.2 (80-100) fl MCH 29.0 (26-34) pg MCHC 30.5 L (32-36) g/dl RDW 14.3 (11.5-14.5) % Plt Count 220 (150-375) k/mm3 MPV 10.8 H (7.4-10.4) fl Immature Gran % (Auto) 0.4 (0-0.5) % Neut % (Auto) 83.2 H (45.5-73.1) % Lymph % (Auto) 11.2 L (18.3-44.2) % [place] % (Auto) 5.1 (2.6-8.5) % Eos % (Auto) 0.0 (0-4.4) % Baso % (Auto) 0.1 L (0.2-1.2) % Lymph # (Auto) 0.88 L (0.9-3.2) K/mm3 [place] # (Auto) 0.4 (0.1-0.6) K/mm3 Eos # (Auto) 0.0 (0-0.3) K/mm3 Baso # (Auto) 0.0 (0.0-0.1) K/mm3 Abs Immat Gran (auto) 0.03 (0.00-0.031) K/mm3 Absolute Neuts (auto) 6.5 (1.3-6.7) K/mm3 Absolute Nucleated RBC 0.000 (0.0-0.012) K/mm3 Nucleated RBC % 0.0 (0.0-0.2) % PT 13.8 (11.1-14.7) Seconds INR 1.1 APTT 27.0 (22.3-36.8) Seconds D-Dimer 0.58 H (<0.48) ug/mL Sodium 136 L (137-145) mmol/L Potassium 4.2 (3.4-5.0) mmol/L Chloride 99 (98-107) mmol/L Carbon Dioxide 31 H (22-30) mmol/L Anion Gap 6 (4-12) mmol/L BUN 20 H D (7-17) mg/dL Creatinine 0.71 (0.7-1.0) mg/dL Estim Creat Clear Calc 86 ml/min Estimated GFR > 60 (59 - ) Glucose 143 H (65-110) mg/dL Calcium 9.0 (8.4-10.2) mg/dL Magnesium 2.2 (1.6-2.3) mg/dL Total Bilirubin 0.5 (0.2-1.3) mg/dL AST 38 H (14-36) U/L ALT 100 H (6-35) U/L Alkaline Phosphatase 76 (38-126) U/L Troponin I 0.025 (0.000-0.034) ng/mL NT-Pro-B Natriuret Pep 1580 H (19.9-100) pg/mL Total Protein 7.8 (6.3-8.2) g/dL Albumin 4.3 (3.5-5.1) g/dL Urine Color Yellow (Yellow) Urine Appearance Clear (Clear) Urine pH 6.5 (5.0-9.0) Ur Specific [place] 1.014 (1.001-1.035) Urine Protein 1+ H (Negative) mg/dL Urine Glucose (UA) Negative (Negative) mg/dL Urine Ketones Negative (Negative) mg/dL Ur Blood (Man) Negative (Negative) Urine Nitrate Negative (Negative) Urine Bilirubin Negative (Negative) Urine Urobilinogen 0.2 (<2.0) mg/dL Leukocyte Esterase Rfl Negative (Negative) ROBERTO CARLOS/UL Urine RBC 0-2 (0-2) /hpf Urine WBC 0-5 (0-3) /hpf Ur Squamous Epith Cells None seen (Few) /hpf Urine Bacteria None seen /hpf Urine Casts 0-2 Urine Opiates Screen Positive A (Negative) Urine Methadone Screen Negative (Negative) Ur Barbiturates Screen Negative (Negative) Ur Phencyclidine Scrn Negative (Negative) Ur Amphetamine Screen Negative (Negative) U Benzodiazepines Scrn Negative (Negative) Urine Cocaine Screen Negative (Negative) U Cannabinoids Screen Positive A (Negative) Influenza A (RT-PCR) Negative (Negative) Influenza B (RT-PCR) Negative (Negative) RSV (RT-PCR) Negative (Negative) SARS-CoV-2 RNA (RT-PCR) Negative (Negative) <Lucio Carter MD - Last Filed: 04/21/25 05:15> ABG Data ABG results: 04/20/25 23:17 Puncture Site Right radial ABG pH 7.407 ABG pCO2 44.1 ABG pO2 71.7 L ABG PO2/FiO2 Ratio 2.56 ABG HCO3 27.1 H ABG O2 Saturation 94.5 L ABG O2 Content 19.8 ABG Base Excess 2.0 A-a Gradient 75.9 Oxyhemoglobin 94.0 Total Hemoglobin 15.0 O2 Delivery Device Nasal cannula O2 Liters/Min 2.0 FiO2 28 <Rebecca Caba APRN - Last Filed: 04/21/25 03:36> 04/20/25 23:17 Puncture Site Right radial ABG pH 7.407 ABG pCO2 44.1 ABG pO2 71.7 L ABG PO2/FiO2 Ratio 2.56 ABG HCO3 27.1 H ABG O2 Saturation 94.5 L ABG O2 Content 19.8 ABG Base Excess 2.0 A-a Gradient 75.9 Oxyhemoglobin 94.0 Total Hemoglobin 15.0 O2 Delivery Device Nasal cannula O2 Liters/Min 2.0 FiO2 28 <Lucio Carter MD - Last Filed: 04/21/25 05:15> Imaging Data Attestation: I personally reviewed and interpreted this imaging study as follows: <Rebecca Caba APRN - Last Filed: 04/21/25 03:36> Radiologist's impression: Patient's chest x-ray indicates potentially artifactual few/sparse left and more prominent right interstitial markings. Cannot exclude atypical presentation of left pneumothorax. Recommend standard protocol of PA chest radiograph and/or CT to further characterize. <Rebecca Caba APRN - Last Filed: 04/21/25 03:36> Discharge Plan Discharge Clinical Impression: Dyspnea, Incidental pulmonary nodule <Rebecca Caba APRN - Last Filed: 04/21/25 03:36> Patient Disposition: Home <Rebecca Caba APRN - Last Filed: 04/21/25 03:36> Condition: Stable <Rebecca Caba APRN - Last Filed: 04/21/25 03:36> Instructions: Antibiotic Form, Dyspnea (ED), Pulmonary Nodules (ED) <Rebecca Caba APRN - Last Filed: 04/21/25 03:36> Additional Instructions: All of your laboratory studies and imaging results were unrevealing today and no urgent or emergent concerns were raised or any explanation for your dyspnea. Incidentally found pulmonary nodule on the CT scan in the right upper lobe measuring 1.5 cm. Recommendations are to follow up with a repeat CT chest in 3 months based on radiology guidelines. If this is an unchanged nodule from previous scans that we do have access to then the follow-up recommendations are 18-24 months. Contact your primary care provider for follow-up visit. Return with any emergent concerns. <Rebecca Caba APRN - Last Filed: 04/21/25 03:36> Patient Language: Thai <Rebecca Caba APRN - Last Filed: 04/21/25 03:36> Prescriptions: New ipratropium bromide 0.02 % solution 2.5 ml inhalation Q6H PRN (Reason: shortness of breath or wheezing) Qty: 75 0RF No Action fluticasone propionate 50 mcg/actuation spray,suspension 2 spray intranasal BID Rx Instructions: administer into each nostril Entresto 24-26 mg tablet 1 tablet PO BID albuterol sulfate 2.5 mg /3 mL (0.083 %) solution for nebulization 2.5 mg inhalation Q6H PRN triamcinolone acetonide 0.025 % ointment 1 applic topical BID PRN (Reason: psoriatic plaques) Qty: 454 0RF Excedrin Extra Strength 250-250-65 mg tablet 1 tablet PO .PRN PRN azelastine [Astepro Allergy] 205.5 mcg (0.15 %) spray,non-aerosol 1 spray intranasal QHS Qty: 30 11RF Rx Instructions: administer into each nostril cholecalciferol (vitamin D3) 1,250 mcg (50,000 unit) capsule 1,250 mcg PO MONTHLY Qty: 3 4RF furosemide 20 mg tablet 20 mg PO BID PRN (Reason: edema) Qty: 180 1RF folic acid 1 mg tablet 1 mg PO DAILY Qty: 30 5RF umeclidinium 62.5 mcg/actuation blister with device 1 inh inhalation DAILY Qty: 90 3RF Eliquis 5 mg tablet 5 mg PO BID bisoprolol fumarate 5 mg Tablet 5 mg PO DAILY budesonide-formoterol [Symbicort] 160-4.5 mcg/actuation Hfa Aerosol Inhaler 2 puff INHALATION Q12H acetaminophen [Mapap (acetaminophen)] 325 mg Tablet 650 mg PO Q4H PRN (Reason: Mild Pain (1-3) Or Fever) Qty: 60 0RF cyanocobalamin (vitamin B-12) [Vitamin B-12] 1,000 mcg Tablet 1,000 mcg PO QAM Qty: 30 0RF albuterol sulfate 90 mcg/actuation HFA aerosol inhaler See Rx Instructions .ROUTE .COMPLEX Qty: 6.7 3RF Dose Instruction: INHALE 1 PUFF EVERY 4 TO 6 HOURS NEEDED Rx Instructions: INHALE 1 PUFF EVERY 4 TO 6 HOURS NEEDED oxycodone-acetaminophen 10-325 mg tablet 1 tablet PO Q8H PRN (Reason: Pain) Qty: 90 0RF azithromycin [Zithromax] 250 mg tablet See Rx Instructions PO .COMPLEX Qty: 6 0RF Rx Instructions: For 250 mg dose pack: take 500 mg today (day 1), then 250 mg for 4 days (days 2-5) PO prednisone 20 mg tablet 40 mg PO DAILY 5 Days Qty: 10 0RF doxycycline monohydrate 100 mg capsule 100 mg PO DAILY Qty: 20 0RF <Rebecca Caba APRN - Last Filed: 04/21/25 03:36> Follow-up/Referrals: Danisha Yousif DO [Primary Care Provider, [facility]] <Rebecca Caba APRN - Last Filed: 04/21/25 03:36> Time of Disposition: 05:08 <Rebecca Caba APRN - Last Filed: 04/21/25 03:36> 05:08 <Lucio Carter MD - Last Filed: 04/21/25 05:15>
[2025-04-20] MEDS: IPRATROPIUM 0.5 MG/ALBUTEROL SULFATE 2.5 MG (BASE) AMPUL.NEB 3 ML INHALATION ×3 (23:24→23:50)
[2025-04-20 23:30] LABS: Hematocrit 47.6 % (37.0-47.0); Hemoglobin 14.5 g/dL (12.0-15.0); Immature Granulocyte Percent A 0.4 % (0-0.5); Lymphocytes Absolute Auto 0.88 K/mm3 (0.9-3.2); Mean Corpuscular HGB Conc 30.5 g/dl (32-36); Mean Corpuscular Hemoglobin 29.0 pg (26-34); Mean Corpuscular Volume 95.2 fl (80-100); Nucleated Red Blood Cells Absolute Auto 0.000 K/mm3 (0.0-0.012); Nucleated Red Blood Cells Perc 0.0 % (0.0-0.2); Platelet Count Result 220 k/mm3 (150-375); Red Blood Count 5.00 M/mm3 (4.2-5.4); White Blood Count 7.8 K/mm3 (4.5-10.0)
[2025-04-20 23:31] LABS: Alveolar/Arterial O2 Gradient 75.9 mmHg; Fractional Inspired Oxygen 28 %; HCO3 ABG 27.1 mEq/l (22.0-26.0); Oxygen Content ABG 19.8 %vol (16.0-22.0); Oxygen Saturation ABG 94.5 % (95.0-100.0); PCO2 ABG 44.1 mmHg (35.0-45.0); PO2 ABG 71.7 mmHg (80.0-100.0); PO2 FiO2 Ratio Arterial Blood 2.56 %
[2025-04-20 23:33] LABS: Liters per Minute 2.0 LPM; Modified Allen's Test Pass; Site Drawn RIGHT RADIAL
--- OUTSIDE RECORDS SUMMARY | 2025-04-20 23:33 | XMS_ITS | Clinical Summary ---
Author Organization [facility] [address] Address [address] [place] [address] Care Team Providers Care Transmission Technician Name Role Phone Alexis Andujar MD Primary Care Provider [phone] Allergies Active Allergy Reactions Criticality Noted Date Comments Carvedilol Shortness of breath High 09/27/2019 Lisinopril Medications budesonide-formote rol (SYMBICORT) 160-4.5 mcg/actuation inhaler inhale 2 puff by inhalation route 2 times every day in the morning and evening 0 Inhaler 0 5 Active oxyCODONE-acetamin ophen (PERCOCET) 10-325 mg per tablet take 1 tablet by oral route every 6 hours as needed 0 0 5 Active furosemide (LASIX) 40 mg tablet take 1 Tablet by oral route every day 0 0 5 Active albuterol HFA (VENTOLIN HFA) 90 mcg/actuation inhaler inhale 2 puff by inhalation route every 4 - 6 hours as needed 0 Inhaler 0 5 Active irbesartan (AVAPRO) 75 mg tablet 1 tablet daily 9 Active predniSONE (DELTASONE) 10 mg tablet Take 5 mg by mouth as needed (sob) Active potassium 99 mg tablet Active spironolactone (ALDACTONE) 25 mg tablet Take 1 tablet (25 mg total) by mouth daily 30 tablet 3 0 Active bisoprolol (ZEBETA) 5 mg tabletIndications: Nonischemic cardiomyopathy (HCC) TAKE 1 TABLET (5 MG TOTAL) BY MOUTH DAILY 30 tablet 2 0 Active Active Problems Problem Noted Date Diagnosed Date Cardiomyopathy, idiopathic 11/09/2018 Family History Medical History Relation Name Comments Leukemia Father Leukemia; COPD Mother COPD; Colon cancer Other Family history of Cancer, colon; Hypertension Other Family history of Hypertension; Relation Name Status Comments Father Mother Other Social History Tobacco Use Types Packs/Day Years Used Date Smoking Tobacco: Light Smoker Cigarettes Smokeless Tobacco: Never Tobacco Cessation:Ready to Q uit: Yes; Counseling Given: Yes Alcohol Use Standard Drinks/Week Comments No 0 (1 standard drink = 0.6 oz pur e alcohol) PHQ-2 Answer Date Recorded PHQ-2 Total Score (If total score is 3 or more points, staff should administer the PHQ-9) 0 09/27/2019 Personal Safety Answer Date Recorded Getting School Help Needed Not on file 06/24 Comments Unknown Sex and Gender Information Value Date Recorded Sex Assigned at Not on file Legal Sex Female 7:39 PM [employer] Gender Identity Not on file Sexual Orientation Not on file Obstetrics History Last Filed Vital Signs Vital Sign Reading Time Taken Comments Blood Pressure 114/66 06/28/2019 11:29 AM [employer] Pulse 86 09/27/2019 11:23 AM CDT Temperature 36.9 C (98.4 F) 07/10/2018 5:41 PM [employer] Respiratory Rate - - Oxygen Saturation 94% 09/27/2019 11:23 AM CDT Inhaled Oxygen Concentration - - Weight 102.1 kg (225 lb) 09/27/2019 11:23 AM CDT Height 165.1 cm (5' 5) 09/27/2019 11:23 AM CDT Body Mass Index 37.44 09/27/2019 11:23 AM CDT Plan of Treatment Not on file Insurance COUNTS INCLUDE 234 BEDS AT THE [facility] COUNTS INCLUDE 234 BEDS AT THE [facility] Care Teams Transmission Technician Relationship Specialty Start Date End Date Alexis Andujar MD [address] [place] [id number] PCP - General 03/24/15
--- OUTSIDE RECORDS SUMMARY | 2025-04-20 23:33 | XMS_ITS | Clinical Summary ---
Author Organization [facility] Address [address] [place] [address] Care Team Providers Care Pot Builder Name Role Phone JermaineCharo Primary Care Provider [phone] Source Comments [facility],non-owned Affiliates and Associated Physician Practices is amultiple site organization consisting of ambulatory clinics and hospital sitesin [place], [place], [place] and [place]. This disclosure is being madepursuant to the Care Everywhere program and may not contain all information available regarding this patient. Last updated 18.[facility] Allergies Active Allergy Reactions Criticality Noted Date Comments Empagliflozin GI Discomfort 06/25/2023 [place] generally unwell Penicillins Urticaria Medium 06/25/2023 Spironolactone GI Discomfort 06/25/2023 [place] generally unwell Medications * Be aware that medications may not be up to date on this document. Alwaysverify current medications with the patient. oxyCODONE-acet aminophen (Percocet) 10-325 MG tablet Take 1 (one) tablet by mouth every 8 hours as needed for Pain Active acetaminophen (Tylenol) 325 MG tablet Take 1 (one) tablet by mouth every 4 hours as needed for Fever or Pain Maximum allowable Acetaminophen amount = 4 Grams (4000 mg) / 24 hours. Active folic acid (Folvite) 1 MG tablet Take 1 (one) tablet by mouth once daily Active fluticasone propionate (Flonase) 50 MCG/ACT nasal spray [place] 2 (two) sprays into each nostril 2 times daily as needed (Nasal congestion or rhinorrhea) 9.9 Each 4 Active famotidine (Pepcid) 20 MG tablet Take 1 (one) tablet by mouth 2 times daily for 30 days 60 tablet 4 Active Vitamin D, Ergocalciferol , 11507 units CAPS Take 1 (one) capsule by mouth once a week Active B Complex Vitamins (B COMPLEX PO) Take 1 tablet by mouth once daily Active albuterol (Proventil;Mateo tolin) (2.5 MG/3ML) 0.083% nebulizer solution Inhale 2.5 (two and one-half) mg by mouth 3 times daily as needed for Shortness of Breath or Wheezing Active eplerenone (Inspra) 25 MG tablet Take 1 (one) tablet by mouth once daily 90 tablet 3 4 Active azelastine (Astepro) 205.5 MCG/SPRAY nasal spray [place] 2 (two) sprays into each nostril 2 times daily Active albuterol HFA (Proventil; Ventolin; Proair) 108 (90 Base) MCG/ACT inhaler Inhale 2 (two) puffs by mouth every 6 hours as needed 18 g 1 5 Active budesonide-for moterol (Symbicort) 160-4.5 MCG/ACT inhaler Inhale 2 (two) puffs by mouth 2 times daily 10.2 g 1 5 Active umeclidinium (Incruse Ellipta) 62.5 MCG/ACT inhaler Inhale 1 (one) puff by mouth once daily 30 Each 3 5 Active montelukast (Singulair) 10 MG tablet Take 1 (one) tablet by mouth at bedtime for 30 days 30 tablet 5 Active bisoprolol (Zebeta) 10 MG tabletIndicati ons:HFrEF (heart failure with reduced ejection fraction) (HCC) TAKE 1 TABLET BY MOUTH DAILY 90 tablet 3 5 Active furosemide (Lasix) 20 MG tablet Take 1 (one) tablet by mouth 2 times daily 5 Active apixaban (Eliquis) 5 MG tablet Take 1 (one) tablet by mouth 2 times daily 180 tablet 3 5 Active Entresto 24-26 MG tablet TAKE 1 TABLET TWICE A DAY 180 tablet 3 5 Active Active Problems Problem Noted Date Diagnosed Date Chronic respiratory failure with hypoxia 025 Obesity, Class III, BMI 40-49.9 (morbid obesity) 07/05/2024 Paroxysmal atrial fibrillation 07/05/2024 Shortness of breath 07/04/2024 Hypervolemia, unspecified hypervolemia type 06/20 Chronic combined systolic and diastolic heart fa ilure 07/04/2024 Anxiety 06/26/2023 Heart failure with reduced ejection fraction 12/2023 Acute decompensated heart failure 06/26/2023 Essential (primary) hypertension 06/26/2023 Acute on chronic respiratory failure with hypoxi a 06/26/2023 Acute hypoxic respiratory failure 06/26/2023 Influenza 06/26/2023 Acute exacerbation of chroni c obstructive pulmonary disease (COPD) 06/24/2023 Encounters Date Type Department Care Team Description 03/11/2025 Refill [facility] - Cardiology [address] [facility] [address] [place] [address] Ana Rosa Schilling APRN-LOGISTICS TEAM LEADER Refill Request from Last 3 Months Social History Tobacco Use Types Packs/Day Years Used Date Smoking Tobacco: Former Cigarettes Smokeless Tobacco: Never Tobacco Cessation:Counseling Given: Not Answered Alcohol Use Standard Drinks/Week Comments Not Currently 0 (1 standard drink = 0.6 oz pur e alcohol) AUDIT-C Answer Date Recorded Q1: How often do you have a drink containing alcohol? Never 07/05/2024 Q2: How many drinks containi ng alcohol do you have on a typical day when you are drinking? Patient does not drink Q3: How often do you have si x or more drinks on one occasion? Never 07/05/2024 Overall Financial Resource Strain (CARDIA) Answe r Date Recorded How hard is it for you to pa y for the very basics like food, housing, medical care, and heating? Somewhat hard 07/05/2024 [facility] - Occupational Stress Questionnaire Answer Date Recorded Do you feel stress - tense, restless, nervous, or anxious, or unable to sleep at night because your mind is troubled all the time - these days? To some extent 07/05/2024 Hunger Vital Sign Answer Date Recorded Within the past 12 months, y ou worried that your food would run out before you got the money to buy more. Never true 07/05/19 25 Within the past 12 months, t he food you bought just didn't last and you didn't have money to get more. Never true 07/05/2024 PRAPARE - Transportation Answer Date Re corded In the past 12 months, has l ack of transportation kept you from medical appointments or from getting medications? No 06/20 In the past 12 months, has l ack of transportation kept you from meetings, work, or from getting things needed for daily living? No 07/05/2024 Housing Stability Vital Sign Answer Darrin e Recorded In the last 12 months, was t here a time when you were not able to pay the mortgage or rent on time? No 07/01/2023 In the last 12 months, how many places have you lived? 1 07/01/2023 In the last 12 months, was t here a time when you did not have a steady place to sleep or slept in a mcfp (including now)? No 07/01/2023 Housing Stability Vital Sign Answer Darrin e Recorded In the last 12 months, was t here a time when you were not able to pay the mortgage or rent on time? No 07/05/2024 In the past 12 months, how m any times have you moved where you were living? 1 07/05/2024 At any time in the past 12 m [facility], were you homeless or living in a mcfp (including now)? No 07/05/2024 Comments Unknown Sex and Gender Information Value Date Recorded Sex Assigned at Not on file Legal Sex Female 4:43 PM SALES LEADER Gender Identity Not on file Sexual Orientation Not on file Last Filed Vital Signs Vital Sign Reading Time Taken Comments Blood Pressure 138/70 11/16/2024 12:53 PM CDT Pulse 77 11/16/2024 10:54 AM CDT Temperature 36.7 C (98.1 F) 07/11/2024 7:58 AM SALES LEADER Respiratory Rate 16 07/11/2024 7:59 AM SALES LEADER Oxygen Saturation 90% 11/16/2024 10:54 AM CDT Inhaled Oxygen Concentration 28% 07/04/2024 1 1:02 AM SALES LEADER Weight 113.4 kg (250 lb) 11/16/2024 10:54 AM CDT Height 160 cm (5' 3) 11/16/2024 10:54 AM CDT Body Mass Index 44.29 11/16/2024 10:54 AM CDT Plan of Treatment Health Maintenance Due Date Last Done Comments BONE DENSITY TESTING 1960 COLOGUARD (AGES 45-75) - COLON CA SCREENING 1960 COLON MONITORING 1960 COLONOSCOPY - COLON CA SCREENING 1960 CT COLONOGRAPHY - COLON CA SCREENING 1960 Colorectal Cancer Screening 1960 FIT - COLON CA SCREENING 1960 FLEX SIG - COLON CA SCREENING 1960 MAMMOGRAM 1960 HIV SCREENING 01/27/1975 HEPATITIS C SCREENING 01/23/1978 DTAP/TDAP/TD VACCINES (1 - Tdap) 01/27/1979 PNEUMOCOCCAL VACCINE 50+ (1 of 2 - PCV) 01/27/1979 PAP SMEAR 01/27/1981 ZOSTER VACCINE (1 of 2) 01/27/2010 Respiratory Syncytial Virus (RSV) Vaccine Pt: or over 60 yrs (1 - Risk 60-74 years 1-dose series) 2020 DEPRESSION SCREENING 06/20/2024 COVID-19 VACCINE (1 - season) 2025 INFLUENZA VACCINE (#1) 2025 LIPID TESTING 06/23/2025 06/23/2020 SCREENING FOR DIABETES 07/11/2027 , 07/10/2024, 07/09/2024, Additional history exists HEPATITIS B VACCINE Aged Out No longe r eligible based on patient's age to complete this topic HIB VACCINE Aged Out No longer eligi ble based on patient's age to complete this topic HPV VACCINE Aged Out No longer eligi ble based on patient's age to complete this topic MENINGOCOCCAL (Group B) VACCINE SHARED DECISION-MAKING Aged Out No longer eligible based on patient's age to complete this topic MENINGOCOCCAL GROUPS A/C/Y/W VACCINE Aged Out No longer eligible based on patient's age to complete this topic Procedures Procedure Name Priority Date/Time Associated Diagnosis Comments RENAL FUNCTION PANEL AM Draw 07/11/2024 4:14 AM SALES LEADER Shortness of breath from Last 3 Months or Most Recently Relevant to Health Maintenance Results * (ABNORMAL) RENAL FUNCTION PANEL (07/11/2024 4:14 AM [facility]) BUN 25 7 - 26 mg/dL 07/11/2024 6:[address] [facility] Creatinine 0.64 0.56 - 0.96 mg/dL 07/11/2024 6:[address] [facility] Sodium 137 136 - 145 mmol/L 07/11/2024 6:[address] [facility] Potassium 4.2 3.5 - 4.5 mmol/L 07/11/2024 6:[address] [facility] Chloride 102 98 - 107 mmol/L 07/11/2024 6:[address] [facility] CO2 26 22 - 29 mmol/L 07/11/2024 6:[address] [facility] Glucose 101(H) 70 - 99 mg/dL 07/11/2024 6:[address] [facility] Albumin 3.4 3.4 - 5.0 g/dL 07/11/2024 6:[address] [facility] Calcium 9.0 8.4 - 10.2 mg/dL 07/11/2024 6:[address] [facility] Phosphorus 3.5 2.9 - 5.1 mg/dL 07/11/2024 6:[address] [facility] Anion Gap 9 6 - 16 07/11/2024 6:[address] [facility] BUN/Creatinine Ratio 39(H) 7 - 23 07/11/2024 6:[address] [facility] Osmolality Calculated 289 275 - 295 mOsm/kg 07/11/2024 6:[address] [facility] eGFR by CKD-EPI >90 >=90 mL/min/1.7 3 m2 07/11/2024 6:[address] [facility] Blood BLOOD SPECIMEN / Unknown Lab Venipuncture / Unknown 07/11/2024 4:14 AM SALES LEADER 07/11/2024 5:31 AM [facility] us Aaron Jamil PA-C LAB - CHEMISTRY ORDERABLE S Final Result [facility] [address] [place] [address] [phone] from Last 3 Months or Most Recently Relevant to Health Maintenance Insurance [facility] Address: [facility] [id number] [place] [id number] Advance Directives Documents on File Type Date Recorded Patient Manager Mining Expl anation Adv Directive/Living Will/POA 07/12/2023 1:55 PM * Full Code (Latest Code Status on File) Date Activated Date Inactivated Comments 07/04/2024 5:15 AM 07/11/2024 2:05 PM * Full Code Date Activated Date Inactivated Comments 06/26/2023 10:01 AM 07/08/2023 6:24 PM * LIMITED RESUSCITATION-PRIOR AND AFTER ARREST Date Activated Date Inactivated Comments 06/25/2023 7:24 PM 06/26/2023 10:00 AM Question Answer Comments Limited Resuscitation: No Chest Compress ionNo Intubation, No Invasive VentilationNo Cardioversion, No Defibrilation, No External or Internal Pacemaker * DNR - IF PULSELESS NO CPR, NO SHOCK Date Activated Date Inactivated Comments 06/25/2023 7:03 PM 06/25/2023 7:24 PM Question Answer Comments : DO NOT discontinue a ny active orders without asking attending physician. * Full Code Date Activated Date Inactivated Comments 06/25/2023 1:28 AM 06/25/2023 7:03 PM Care Teams Pot Builder Relationship Specialty Start Date End Date Charo Dean [address] [place] [address] PCP - General 04/26/24
--- OUTSIDE RECORDS SUMMARY | 2025-04-20 23:33 | XMS_ITS | Encounter Summary ---
Author Organization [facility] Address [facility]ly [facility] [place] [address] Care Team Providers Care Transmission Engineer Name Role Phone Rose Marie Luna MD Primary Care Provider [phone] Encounter Details Date Type Department Care Team (Late st Contact Info) Description 07/16/2020 Abstract [facility] [address] Edward Berry MA Social History Tobacco Use Types Packs/Day Years Used Date Smoking Tobacco: Never Assessed Comments Unknown Sex and Gender Information Value Date Recorded Sex Assigned at Not on file Legal Sex Female 6:44 PM CDT Gender Identity Not on file Sexual Orientation Not on file documented as of this encounter Plan of Treatment Not on file documented as of this encounter Procedures Procedure Name Priority Date/Time Associated Diagnosis Comments CBC (OUTSIDE LAB) Routine 06/23/2020 COMPREHENSIVE METABOLIC PANEL Routine 06/23/2020 LIPID PANEL Routine 06/23/2020 VITAMIN D, 25 OH Routine 06/23/2020 documented in this encounter Results * COMPREHENSIVE METABOLIC PANEL (06/23/2020) SODIUM S/P/B 139 POTASSIUM S/P/B 4.4 CO2 23 CHLORIDE S/P/B 104 GLUCOSE 106 mg/dL CALCIUM S/P/B 9.6 BUN 26 CREATININE S/P/B 0.78 0.5 - 1.0 EGFR NON-AFR. AMER. >60 <=90 ALKALINE PHOSPHATASE S/P/B 86 ALT 27 AST 26 BILIRUBIN TOTAL S/P/B 0.50 ALBUMIN S/P/B 4.4 3.5 - 5.0 TOTAL PROTEIN S/P/B 7.6 GLOBULIN 3.2 06/23/2020 us Doc [facility] Abstract LABORATORY Final Result * LIPID PANEL (06/23/2020) Pathologist [facility] CHOLESTEROL 280 HDL 57 TRIGLYCERIDES 167 LDL (CALCULATED) 190 06/23/2020 us Doc [facility] Abstract LABORATORY Final Result * VITAMIN D, 25 [place] (06/23/2020) Pathologist [facility] VITAMIN D 25 HYDROXY S/P/B 17.8 06/23/2020 us Doc [facility] Abstract LABORATORY Final Result * CBC (OUTSIDE LAB) (06/23/2020) Pathologist [facility] WBC 9.2 HGB 14.6 HCT 46.1 PLT 261 06/23/2020 us Doc [facility] Abstract LAB-OUTSIDE/ABSTRACTED Final Result documented in this encounter Visit Diagnoses Not on filedocumented in this encounter Care Teams Transmission Engineer Relationship Specialty Start Date End Date Rose Marie Luna MD [address] [place] [address] [place] [address] PCP - General FAMILY PRACTICE 07/01/20 documented as of this encounter
--- OUTSIDE RECORDS SUMMARY | 2025-04-20 23:33 | XMS_ITS | Clinical Summary ---
Author Organization [facility] Address [address] [place] [address] Care Team Providers Care Quarryman Name Role Phone Rose Marie Luna MD Primary Care Provider [phone] Allergies Active Allergy Reactions Criticality Noted Date Comments Carvedilol Shortness of Breath High 09/27/2019 Lisinopril Unknown 10/03/2020 Medications bisoprolol 5 MG tablet daily. 09/22/2020 Active furosemide 40 MG tablet 20 mg 3 (three) times a week. 06/24/2020 Active SYMBICORT 160-4.5 MCG/ACT inhaler 09/20/2020 Active albuterol sulfate HFA 108 (90 Base) MCG/ACT inhaler 2 puffs 4 (four) times daily. 09/20/2020 Active irbesartan 75 MG tablet Take 75 mg by mouth daily. 09/20/2020 Active potassium chloride CR 10 MEQ Tab CR tablet 10 mEq 3 (three) times a week. 06/24/2020 Active predniSONE 10 mg tablet 10 mg daily. 06/24/2020 Active oxyCODONE-acetam inophen 10-325 MG tablet 1 tablet every 4 (four) hours as needed. 09/22/2020 Active Fexofenadine-Pse udoephedrine (MICHAEL-D 12 HOUR OR) Take 1 tablet by mouth daily. Active Active Problems Problem Noted Date Diagnosed Date CHF (congestive heart failur e), NYHA class III, chronic, systolic 12/31/2020 Mixed hyperlipidemia 10/03/2020 Class 2 severe obesity due t o excess calories with serious comorbidity in adult, unspecified BMI 10/03/2020 DWAIN (obstructive sleep apnea) 10/03/2020 Intermittent asthma, unspeci fied asthma severity, unspecified whether complicated 10/03/2020 Nonischemic cardiomyopathy 11/09/2018 Social History Tobacco Use Types Packs/Day Years Used Date Smoking Tobacco: Some Days Smokeless Tobacco: Never Tobacco Cessation:Counseling Given: Yes Alcohol Use Standard Drinks/Week Comments Never 0 (1 standard drink = 0.6 oz pur e alcohol) AUDIT-C Answer Date Recorded Q1: How often do you have a drink containing alc ohol? 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 Not on file Not on file Not on file Last Filed Vital Signs Vital Sign Reading Time Taken Comments Blood Pressure 144/68 10/03/2020 1:21 PM CDT Pulse 82 10/03/2020 1:21 PM CDT Temperature 36.2 C (97.1 F) 10/03/2020 1:21 PM CDT Respiratory Rate 20 10/03/2020 1:21 PM CDT Oxygen Saturation 94% 10/03/2020 1:21 PM CDT Inhaled Oxygen Concentration - - Weight 87.1 kg (192 lb) 10/03/2020 1:21 PM CDT Height 165.1 cm (5' 5) 10/03/2020 1:21 PM CDT Body Mass Index 31.95 10/03/2020 1:21 PM CDT Plan of Treatment Health Maintenance Due Date Last Done Comments Colorectal Cancer Screening Colonoscopy (10 Years) 1960 Hepatitis C 01/27/1978 DTaP, Tdap and Td Vaccines ( 1 - Tdap) 01/27/1979 Pneumococcal Vaccine: 50+ Ye ars (1 of 2 - PCV) 01/27/1979 Mammogram Screening 2000 Zoster Vaccines (1 of 2) 01/27/2010 RSV Immunization or 60+ Years (1 - Risk 60-74 years 1-dose series) 2020 Dexa Scan (General) 01/27/2025 COVID-19 Vaccine (2024-2 6 season) 2025 Influenza Adult (#1) 2025 Hepatitis A Vaccines Aged Out No long er eligible based on patient's age to complete this topic Meningococcal B Vaccine Aged Out No l onger eligible based on patient's age to complete this topic Meningococcal Vaccine Aged Out No avis laura eligible based on patient's age to complete this topic RSV Immunizations Under 20 Months Aged Out No longer eligible based on patient's age to complete this [place] [address] [facility] Care Teams Quarryman Relationship Specialty Start Date End Date Rose Marie Luna MD [address] [place] [address] PCP - General FAMILY PRACTICE 07/01/20
[2025-04-20 23:41] LABS: Alanine Aminotransferase 100 U/L (6-35); Albumin Level 4.3 g/dL (3.5-5.1); Alkaline Phosphatase 76 U/L (38-126); Anion Gap 6 mmol/L (4-12); Aspartate Amino Transferase 38 U/L (14-36); Bilirubin,Total 0.5 mg/dL (0.2-1.3); Blood Urea Nitrogen 20 mg/dL (7-17); Calcium 9.0 mg/dL (8.4-10.2); Carbon Dioxide 31 mmol/L (22-30); Chloride 99 mmol/L (98-107); Estimated CRCL calculation 86 ml/min; Estimated Glomerular Filt Rate > 60; Glucose 143 mg/dL (65-110); Potassium 4.2 mmol/L (3.4-5.0); Sodium 136 mmol/L (137-145); Total Protein 7.8 g/dL (6.3-8.2)
[2025-04-20] MEDS: oxyCODONE/ACETAMINOPHEN (*CRX) 10-325 MG TABLET 1 TAB PO (23:42)
[2025-04-20] MEDS: LORazepam (*CRX) 1 MG TABLET PO (23:43)
[2025-04-20 23:53] LABS: Magnesium 2.2 mg/dL (1.6-2.3); NT Pro B Type Natriuretic Pept 1580 pg/mL (19.9-100); Troponin I 0.025 ng/mL (0.000-0.034)
[2025-04-21] VITALS (8 sets, daily range): BP systolic 132–154; BP diastolic 47–84; PULSE 71–90; RESP 20–23; O2SAT 91–97
[2025-04-21 00:05] LABS: Influenza A QL RT-PCR Negative (Negative); Influenza B QL RT-PCR Negative (Negative); RSV RNA, RT-PCR Negative (Negative); SARS-CoV-2 RNA PCR Negative (Negative)
[2025-04-21 00:17] LABS: INR 1.1; Partial Thromboplastin Time 27.0 Seconds (22.3-36.8); Prothrombin Time 13.8 Seconds (11.1-14.7)
[2025-04-21 01:03] LABS: Add Urine Microscopic? YES; Appearance Urine Clear (Clear); Glucose Urine UA Negative (Negative); Leukocyte Esterase Ur Negative LEU/UL (Negative); Nitrate Urine Negative (Negative); Non Pathogenic Casts 0-2; Specific Grav Ur 1.014 (1.001-1.035)
--- NOTE | 2025-04-21 01:13 | PC.NURSE ---
This RN brought pt commode and a hat and educated pt on importance of providing a sample. Pt stated she will try in a minute.
[2025-04-21 01:18] LABS: Cannabinoid Screen Urine Positive (Negative)
[2025-04-21] MEDS: FUROSEMIDE INJ 40 MG/4 ML VIAL IV PUSH (01:28)
[2025-04-21] MEDS: diazePAM INJ (*CRX) 10 MG/2 ML SYRINGE 5 MG IV PUSH (01:57)
--- NOTE | 2025-04-21 05:16 | PC.NURSE ---
This RN called pt son sandra per pt request and updated on pt status. Pt son is on the way to pick pt up.
== END 2025-04-21 05:50 | disposition home or self-care (01) ==
PROVIDERS: Student in an Organized Health Care Education/Training Program; Emergency Provider Registered Nurse; PCP Family Medicine
DX: R06.00 Dyspnea, unspecified (principal); R91.1 Solitary pulmonary nodule; Z20.822 Contact with and (suspected) exposure to COVID-19; J44.9 Chronic obstructive pulmonary disease, unspecified; I11.0 Hypertensive heart disease with heart failure; I50.9 Heart failure, unspecified; I25.10 Atherosclerotic heart disease of native coronary artery without angina pectoris; I42.8 Other cardiomyopathies; E78.5 Hyperlipidemia, unspecified; M81.0 Age-related osteoporosis without current pathological fracture; F41.9 Anxiety disorder, unspecified; F31.9 Bipolar disorder, unspecified; Z99.81 Dependence on supplemental oxygen; Z86.73 Personal history of transient ischemic attack (TIA), and cerebral infarction without residual deficits; Z87.891 Personal history of nicotine dependence; Z79.899 Other long term (current) drug therapy; Z79.01 Long term (current) use of anticoagulants; Z79.51 Long term (current) use of inhaled steroids; I44.7 Left bundle-branch block, unspecified
CPT/HCPCS: 36415; 36600; 71045; 71260; 80053; 80307; 81001; 82805; 83735; 83880; 84484; 85018; 85025; 85380; 85610; 85730; 87637; 93005; 94640; 96374; 96375; 99284; A9270; J1938; J2919; J3360; Q9967

== ENCOUNTER 2025-04-21 06:01 | Inpatient (IN) | payer MEDICARE, BC, SELFPAY ==
--- OUTSIDE RECORDS SUMMARY | 2002-02-06 07:15 | XMS_ITS | Continuity of Care Document ---
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 [address] , [address], [place], [address], [place]. tel:[phone] Family History Family Member Type Diagnosis Age At Onset No Information Payers Payer name Insurance type Covered libertarian ID Authoriza tion(s) Medicaid [facility] [id number] Social History Type Description Quantity Date Captured Comments Sex Female Smoking Status No Information Chief Complaint And Reason For Visit No Information Reason For Referral Reason For Referral No Information History Of Present Illness Encounter Date Complaint History Of Prese nt Illness No Information Functional Status Date Functional Assessmen t No Information Instructions Date Instruction Additional Infor mation No Information Assessments Type Assessment Date No Information Patient Care Teams Name Effective Dates (start - stop) Status Members No Information
--- OUTSIDE RECORDS SUMMARY | 2002-02-06 07:15 | XMS_ITS | Continuity of Care Document ---
Author Organization [facility] Address [address] [place] [address] Phone Care Team Providers Care Emergency Room Clinician Name Role Phone Lesa Leary Unavailable Unavailable Advance Directives Directive Yes / No Effective Date File Name No Information Encounters Encounter Description Practice Location Reason(s) For Visit Diagnoses Date Provider Providers Copied on Encounter [facility], [address], [place], [place], [id number], [place] tel:[phone] [facility] No Information 0-[address]. [address] , [address], [place], [address], [place]. tel:[phone] Family History Family Member Type Diagnosis Age At Onset No Information Payers Payer name Insurance type Covered constitution party ID Authoriza tion(s) Medicaid [facility] [id number] Social History Type Description Quantity Date Captured [...]
[2025-04-21] VITALS (37 sets, daily range): BP systolic 137–186; BP diastolic 60–98; PULSE 69–100; RESP 15–28; TEMP 36.4–36.7; O2SAT 90–99; BMI 42.2
--- OUTSIDE RECORDS SUMMARY | 2025-04-21 06:03 | XMS_ITS | Encounter Summary ---
Author Organization [facility] Address [facility] [place] [address] Care Team Providers Care Helper Metal Hanging Name Role Phone Rose Marie Luna MD Primary Care Provider [phone] Encounter Details Date Type Department Care Team (Late st Contact Info) Description 07/16/2020 Abstract [facility] [address] Edward Berry MA Social History Tobacco Use [...] Final Result * LIPID PANEL (06/23/2020) Pathologist [facility] CHOLESTEROL 280 HDL 57 TRIGLYCERIDES 167 LDL (CALCULATED) 190 06/23/2020 us Doc [facility] Abstract LABORATORY Final Result * VITAMIN D, 25 [place] (06/23/2020) Pathologist [facility] VITAMIN D 25 HYDROXY S/P/B 17.8 06/23/2020 us Doc [facility] Abstract LABORATORY Final Result * CBC (OUTSIDE LAB) (06/23/2020) Pathologist [facility] WBC 9.2 HGB 14.6 HCT 46.1 PLT 261 06/23/2020 us Doc [facility] Abstract LAB-OUTSIDE/ABSTRACTED Final Result documented in this encounter Visit Diagnoses Not on filedocumented in this encounter Care Teams Helper Metal Hanging Relationship Specialty Start Date End Date Rose Marie Luna MD [address] [place] [address] [place] [address] PCP - General FAMILY PRACTICE 07/01/20 documented as of this encounter
--- OUTSIDE RECORDS SUMMARY | 2025-04-21 06:03 | XMS_ITS | Clinical Summary ---
Author Organization [facility] [address] Address [address] [place] [address] Care Team Providers Care Enterprise Applications Manager Name Role Phone Alexis Andujar MD Primary Care Provider [phone] Allergies Active Allergy Reactions Criticality Noted Date [...] on file Legal Sex Female 7:39 PM ELECTRONICS MANUFACTURER Gender Identity Not on file Sexual Orientation Not on file Last Filed Vital Signs Vital Sign Reading Time Taken Comments Blood Pressure 114/66 06/28/2019 11:29 AM ELECTRONICS MANUFACTURER Pulse 86 09/27/2019 11:23 AM CDT Temperature 36.9 C (98.4 F) 07/10/2018 5:41 PM ELECTRONICS MANUFACTURER Respiratory Rate - - Oxygen Saturation 94% 09/27/2019 11:23 AM CDT Inhaled Oxygen Concentration - - Weight 102.1 kg (225 lb) 09/27/2019 11:23 AM CDT Height 165.1 cm (5' 5) 09/27/2019 11:23 AM CDT Body Mass Index 37.44 09/27/2019 11:23 AM CDT Plan of Treatment Not on file Insurance [facility] Care Teams Enterprise Applications Manager Relationship Specialty Start Date End Date Alexis Andujar MD [address] [place] [id number] PCP - General 03/24/15
--- OUTSIDE RECORDS SUMMARY | 2025-04-21 06:03 | XMS_ITS | Clinical Summary ---
Author Organization [facility] Address [address] [place] [address] Care Team Providers Care Aircraft Log Clerk Name Role Phone Rose Marie Luna MD Primary Care Provider [phone] Allergies Active Allergy Reactions Criticality Noted Date [...] patient's age to complete this topic [place] [address] [facility] Care Teams Aircraft Log Clerk Relationship Specialty Start Date End Date Rose Marie Luna MD [address] [place] [address] PCP - General FAMILY PRACTICE 07/01/20
--- OUTSIDE RECORDS SUMMARY | 2025-04-21 08:18 | XMS_ITS | Encounter Summary ---
Author Organization [facility] Address Formerly [facility], [facility] [place] [address] Care Team Providers Care Boat Dispatcher Name Role Phone Rose Marie Luna MD Primary Care Provider [phone] Encounter Details Date Type Department Care Team (Late st Contact Info) Description 07/16/2020 Abstract [facility] [address] Edward Berry MA Social History Tobacco Use [...] Final Result * LIPID PANEL (06/23/2020) Pathologist [facility] [place] CHOLESTEROL 280 HDL 57 TRIGLYCERIDES 167 LDL (CALCULATED) 190 06/23/2020 us Doc [facility] Abstract LABORATORY Final Result * VITAMIN D, 25 OH (06/23/2020) Pathologist [facility] [place] VITAMIN D 25 HYDROXY S/P/B 17.8 06/23/2020 us Doc [facility] Abstract LABORATORY Final Result * CBC (OUTSIDE LAB) (06/23/2020) Pathologist [facility] [place] WBC 9.2 HGB 14.6 HCT 46.1 PLT 261 06/23/2020 us Doc [facility] Abstract LAB-OUTSIDE/ABSTRACTED Final Result documented in this encounter Visit Diagnoses Not on filedocumented in this encounter Care Teams Boat Dispatcher Relationship Specialty Start Date End Date Rose Marie Luna MD [address] [place] [address] [place] [address] PCP - General FAMILY PRACTICE 07/01/20 documented as of this encounter
--- OUTSIDE RECORDS SUMMARY | 2025-04-21 08:18 | XMS_ITS | Clinical Summary ---
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 Gender Identity Not on file Sexual Orientation Not on file Last Filed Vital Signs Vital Sign Reading Time Taken Comments Blood Pressure 114/66 06/28/2019 11:29 AM UNIVERSAL GRINDER OPERATOR Pulse 86 09/27/2019 11:23 AM CDT Temperature 36.9 C (98.4 F) 07/10/2018 5:41 PM UNIVERSAL GRINDER OPERATOR Respiratory Rate - - Oxygen Saturation 94% 09/27/2019 11:23 AM CDT Inhaled Oxygen Concentration - - Weight 102.1 kg (225 lb) 09/27/2019 11:23 AM CDT Height 165.1 cm (5' 5) 09/27/2019 11:23 AM CDT Body Mass Index 37.44 09/27/2019 11:23 AM CDT Plan of Treatment Not on file Insurance [facility] Care Teams Aerospace Physiological Technician Relationship Specialty Start Date End Date Alexis Andujar MD [address] [place] [id number] PCP - General 03/24/15
--- OUTSIDE RECORDS SUMMARY | 2025-04-21 08:18 | XMS_ITS | Clinical Summary ---
Author Organization [facility] Address [address] [place] [address] Care Team Providers Care Custodian Athletic Equipment Name Role Phone Rose Marie Luna MD Primary Care Provider [phone] Allergies Active Allergy Reactions Criticality Noted Date [...] patient's age to complete this topic [place] [address] [facility] Care Teams Custodian Athletic Equipment Relationship Specialty Start Date End Date Rose Marie Luna MD [address] [place] [id number] PCP - General FAMILY PRACTICE 07/01/20
[2025-04-21] MEDS: IPRATROPIUM 0.5 MG/ALBUTEROL SULFATE 2.5 MG (BASE) AMPUL.NEB 3 ML INHALATION ×3 (08:57→17:32)
--- NOTE | 2025-04-21 10:03 | ED.SOB ---
HPI - SOB/Dyspnea General Chief Complaint: Shortness of Breath/Dyspnea Stated Complaint: Shortness of breath Time Seen by Provider: 04/21/25 08:08 History of Present Illness HPI Narrative: Patient is a 65-year-old female with history of COPD who presents ER with shortness of breath. Was seen in the ER last night with a negative workup but tried to leave it was too short of breath to walk so she came back to the ER. She reports cannot walk further than a few feet before she is extremely fatigued and dyspneic. No productive cough. No chest pain. Related Data Home Medications ?Medication ?Instructions ?Recorded ?Confirmed ?Last Taken ?Type bisoprolol fumarate 5 mg tablet 5 mg PO DAILY 07/05/19 04/10/25 Unknown History budesonide-formoterol HFA 160 2 puff inhalation Q12H 07/05/19 04/10/25 Unknown History mcg-4.5 mcg/actuation aerosol inhaler (Symbicort) fluticasone propionate 50 2 spray intranasal BID 12/08/23 04/10/25 Unknown History mcg/actuation nasal spray,suspension sacubitril 24 mg-valsartan 26 mg 1 tablet PO BID 12/08/23 04/10/25 Unknown History tablet (Entresto) albuterol sulfate 2.5 mg/3 mL 2.5 mg inhalation Q6H PRN 03/08/24 04/10/25 Unknown History (0.083 %) solution for nebulization pjjgjyn-itfgkcpbbgxrc-abmfxyzl 250 1 tablet PO .PRN PRN 05/31/24 04/10/25 Unknown History mg-250 mg-65 mg tablet (Excedrin Extra Strength) apixaban 5 mg tablet (Eliquis) 5 mg PO BID 04/10/25 04/10/25 Unknown History Allergies Allergy/AdvReac Type Severity Reaction Status Date / Time shellfish derived Allergy Intermediate Hives Verified 04/21/25 06:01 cephalexin Allergy Mild HIVES Verified 04/21/25 06:01 adhesive tape Allergy Rash Verified 04/21/25 06:01 empagliflozin (From AdvReac Intermediate Other Verified 04/21/25 06:01 Jardiance) aspirin AdvReac Unknown STOMACH Verified 04/21/25 06:01 IRRITATION ibuprofen AdvReac Unknown STOMACH Verified 04/21/25 06:01 IRRITATION METAL Allergy Intermediate Unknown Uncoded 04/10/25 15:45 SHELLFISH Allergy Intermediate HIVES Uncoded 04/10/25 15:45 MULTIPLE ANTIBIOTICS Allergy Mild Unknown Uncoded 04/10/25 15:45 Review of Systems Review of Systems: All systems reviewed & are unremarkable except as noted in HPI and below Constitutional: Constitutional: Reports no additional constitutional complaints Cardiovascular: Cardiovascular: Reports no additional cardiovascular complaints Respiratory: Respiratory: Reports no additional respiratory complaints Gastrointestinal: Gastrointestinal: Reports no additional gastrointestinal complaints [facility] Past Medical History Medical History Atrial fibrillation CAD (coronary artery disease) History of tobacco abuse History of stroke LBBB (left bundle branch block) Nonischemic cardiomyopathy CHF (congestive heart failure), NYHA class I Anxiety Bipolar 1 disorder Depression Lumbar herniated disc Osteoporosis Bilateral hips but unable to have surgery due to her respiratory problems Arthritis Asthma COPD (chronic obstructive pulmonary disease) HTN (hypertension) HLD (hyperlipidemia) TIA (transient ischemic attack) Surgical History Surgical History H/O section H/O tubal ligation Hx of cholecystectomy Hx of tonsillectomy Family History Family History Father Diabetes mellitus Heart disease Hypertension Mother Metastatic cancer Thyroid disorder Son Depression Anxiety Grandparent Cancer Depression Anxiety Heart problem Grandparent Diabetes mellitus Other Family history of arthritis Family history of cardiovascular disease Family history of malignant neoplasm History of blood clots Social History Social History Social History: The patient has 1 son who is Carlitos and Carlitos is her durable power compliance attorney for healthcare. She wishes to be a full code. She is disabled. She is . She stated that she quit smoking on and off for many years and was down to just a few cigarettes a day. Smoking packs per day: 1 Smoking cigarettes per day: 20.0 Years smoked: 40 Smoking pack-years: 40.00 Smoking status: Former smoker Tobacco type: cigarettes Second hand tobacco smoke exposure: Yes Smoking end date: 12/17/22 Alcohol intake: former Substance use: current Substance use type: marijuana Other substance usage details: maite, medical card, back pain control Do You Feel Safe in your Home?: Yes Lack of Transportation: No Lack of Food: Never True Current Housing: I Have Housing Concerned About Future Housing: No Difficulty Paying Gas/Electric Bills: No Difficulty Paying for Meds: YES Currently Unemployed: No Education: High School Diploma/GED Difficulty w/ Childcare or Family Care: No Living arrangements: alone Occupation/Education: other Gender identity (if verbalized by the patient): Female Spiritual care concerns: No Agree to blood products: Yes Exam Narrative: GENERAL: Chronically ill-appearing, morbidly obese, and in no acute distress. HEAD: Normocephalic, atraumatic. ENT: Mucous membranes moist. NECK: Supple. CHEST: Expiratory wheezing. No respiratory distress. HEART: Regular rate and rhythm. Normal peripheral pulses. ABDOMEN: Soft, nontender, nondistended. EXTREMITIES: Normal range of motion. No edema. SKIN: Warm, dry, no rash. NEURO: Alert and oriented x3. PSYCH: Normal mood and affect. Course Course Emergency Course: Patient unable to ambulate safely to go home. Admit for observation. Will need PT/OT and likely placement. Lungs clear after nebulizer treatment. No hypoxia. Vital Signs Vital signs: Vital Signs Temperature 98.1 F 04/21/25 06:30 Pulse Rate 93 04/21/25 06:30 Respiratory Rate 28 H 04/21/25 06:30 Blood Pressure 156/83 H 04/21/25 06:30 Pulse Oximetry 93 04/21/25 06:30 Oxygen Delivery Nasal Cannula 04/21/25 06:30 Oxygen Flow Rate 2 04/21/25 06:30 Temperature 97.9 F 04/21/25 08:15 Pulse Rate 93 04/21/25 11:45 Respiratory Rate 20 04/21/25 11:45 Blood Pressure 166/72 H 04/21/25 11:45 Pulse Oximetry 96 04/21/25 11:45 Oxygen Delivery Nasal Cannula 04/21/25 08:15 Oxygen Flow Rate 2 04/21/25 08:15 MDM - SOB/Dyspnea Differential Diagnosis Differential diagnosis: Likely acute exacerbation of chronic obstructive airways disease, congestive heart failure, community acquired pneumonia, asthma with exacerbation and other (Deconditioning) Medical Records Attestation: I reviewed the patient's medical records. Discharge Plan Discharge Clinical Impression: Physical deconditioning COPD (chronic obstructive pulmonary disease) Qualifiers: COPD type: COPD with acute exacerbation Qualified Code(s): J44.1 - Chronic obstructive pulmonary disease with (acute) exacerbation Patient Disposition: Still a Patient Condition: Stable Patient Language: [place] Prescriptions: No Action fluticasone propionate 50 mcg/actuation spray,suspension 2 spray intranasal BID Rx Instructions: administer into each nostril Entresto 24-26 mg tablet 1 tablet PO BID albuterol sulfate 2.5 mg /3 mL (0.083 %) solution for nebulization 2.5 mg inhalation Q6H PRN triamcinolone acetonide 0.025 % ointment 1 applic topical BID PRN (Reason: psoriatic plaques) Qty: 454 0RF Excedrin Extra Strength 250-250-65 mg tablet 1 tablet PO .PRN PRN azelastine [Astepro Allergy] 205.5 mcg (0.15 %) spray,non-aerosol 1 spray intranasal QHS Qty: 30 11RF Rx Instructions: administer into each nostril cholecalciferol (vitamin D3) 1,250 mcg (50,000 unit) capsule 1,250 mcg PO MONTHLY Qty: 3 4RF furosemide 20 mg tablet 20 mg PO BID PRN (Reason: edema) Qty: 180 1RF folic acid 1 mg tablet 1 mg PO DAILY Qty: 30 5RF umeclidinium 62.5 mcg/actuation blister with device 1 inh inhalation DAILY Qty: 90 3RF Eliquis 5 mg tablet 5 mg PO BID bisoprolol fumarate 5 mg Tablet 5 mg PO DAILY budesonide-formoterol [Symbicort] 160-4.5 mcg/actuation Hfa Aerosol Inhaler 2 puff INHALATION Q12H acetaminophen [Mapap (acetaminophen)] 325 mg Tablet 650 mg PO Q4H PRN (Reason: Mild Pain (1-3) Or Fever) Qty: 60 0RF cyanocobalamin (vitamin B-12) [Vitamin B-12] 1,000 mcg Tablet 1,000 mcg PO QAM Qty: 30 0RF ipratropium bromide 0.02 % solution 2.5 ml inhalation Q6H PRN (Reason: shortness of breath or wheezing) Qty: 75 0RF albuterol sulfate 90 mcg/actuation HFA aerosol inhaler See Rx Instructions .ROUTE .COMPLEX Qty: 6.7 3RF Dose Instruction: INHALE 1 PUFF EVERY 4 TO 6 HOURS NEEDED Rx Instructions: INHALE 1 PUFF EVERY 4 TO 6 HOURS NEEDED oxycodone-acetaminophen 10-325 mg tablet 1 tablet PO Q8H PRN (Reason: Pain) Qty: 90 0RF azithromycin [Zithromax] 250 mg tablet See Rx Instructions PO .COMPLEX Qty: 6 0RF Rx Instructions: For 250 mg dose pack: take 500 mg today (day 1), then 250 mg for 4 days (days 2-5) PO prednisone 20 mg tablet 40 mg PO DAILY 5 Days Qty: 10 0RF doxycycline monohydrate 100 mg capsule 100 mg PO DAILY Qty: 20 0RF Follow-up/Referrals: Danisha Yousif DO [Primary Care Provider, Family Practice]
--- NOTE | 2025-04-21 11:30 | PC.NURSE ---
Patient transferred from bed to walk to check oxygen levels while walking with walker. Patient took 3 steps and started having a asthma attack and instructed Tech to get a wheelchair. Patient wheeled to bathroom and helped to toilet by Tech. Patient states she gets panic attacks at home when she tries to use the bathroom. She states that she does not use oxygen during the day at home. Son called RN and asked how patient is doing. He states mother lives alone and he lives down the street but she has been noncompliant with using oxygen at home.
--- NOTE | 2025-04-21 12:11 | PC.NURSE ---
Patient transferred from wheelchair to bed by RN. Patient was able to stand and pivot to bed. Patient stating she cannot breath and feels like she is having asthma attack. Patient instructed to breath through the nose and out the mouth. Patient more calm and breathing normally. Patient states she does not want to get up again, she thinks she is having panic attacks everytime she gets up and moves.
--- NOTE | 2025-04-21 14:22 | PM.IMHP ---
H&P: HPI History of Present Illness Date/Time: 04/21/25 14:22 Chief Complaint: Dyspnea Narrative: 65-year-old female with a past medical history of COPD no home O2, CHF, anxiety, AFib, HTN, hyperlipidemia, CVA presents to the ED on 04/21/2025 with complaints of increased dyspnea. She states the symptoms began 5 days ago and have worsened today. Patient was seen in the ED last night with a negative workup but felt she was too short of breath to go home so returned to the ED. patient states she cannot walk more than a few feet before becoming extremely dyspneic and fatigued. Patient has a prescription for b.i.d. p.r.n. furosemide but does not take it because it gives her ?cotton mouth.? Denies chest pain, swelling, fevers, abdominal pain. Patient states ?every time I stand up by have an asthma attack.? Initial vital signs 156/83, HR 93, respirations 28, afebrile and 93% on room air. 2 L per nasal cannula was placed Labs with hemoglobin 14.5 and hematocrit 47.6, D-dimer 0.58 (DVT on likely when age adjusted). ABG with PO2 71.7, HC03 27.1, O2 sat 94.5. Chemistry was sodium 136, carbon dioxide 31, BUN 20, glucose 143, AST 38, ALT 100. BNP 1580 UA without signs of infection. UDS positive for marijuana and opiates Chest x-ray with no acute cardiopulmonary findings. Chest CT with 14 mm right upper lobe pulmonary nodule suspicious for primary bronchogenic carcinoma. Mild emphysema Review of Systems Review of Systems: All systems reviewed & are unremarkable except as noted in HPI and below [facility] Past Medical History Medical History Atrial fibrillation CAD (coronary artery disease) History of tobacco abuse History of stroke LBBB (left bundle branch block) Nonischemic cardiomyopathy CHF (congestive heart failure), NYHA class I Anxiety Bipolar 1 disorder Depression Lumbar herniated disc Osteoporosis Bilateral hips but unable to have surgery due to her respiratory problems Arthritis Asthma COPD (chronic obstructive pulmonary disease) HTN (hypertension) HLD (hyperlipidemia) TIA (transient ischemic attack) Surgical History Surgical History H/O section H/O tubal ligation Hx of cholecystectomy Hx of tonsillectomy Family History Family History Father Diabetes mellitus Heart disease Hypertension Mother Metastatic cancer Thyroid disorder Son Depression Anxiety Grandparent Cancer Depression Anxiety Heart problem Grandparent Diabetes mellitus Other Family history of arthritis Family history of cardiovascular disease Family history of malignant neoplasm History of blood clots Social History Social History Social History: The patient has 1 son who is Carlitos and Carlitos is her durable power deputy prosecuting attorney for healthcare. She wishes to be a full code. She is disabled. She is . She stated that she quit smoking on and off for many years and was down to just a few cigarettes a day. Smoking packs per day: 1 Smoking cigarettes per day: 20.0 Years smoked: 40 Smoking pack-years: 40.00 Smoking status: Former smoker Tobacco type: cigarettes Second hand tobacco smoke exposure: Yes Smoking end date: 12/17/22 Alcohol intake: former Substance use: current Substance use type: marijuana Other substance usage details: rachellea, medical card, back pain control Do You Feel Safe in your Home?: Yes Lack of Transportation: No Lack of Food: Never True Current Housing: I Have Housing Concerned About Future Housing: No Difficulty Paying Gas/Electric Bills: No Difficulty Paying for Meds: YES Currently Unemployed: No Education: High School Diploma/GED Difficulty w/ Childcare or Family Care: No Living arrangements: alone Occupation/Education: other Gender identity (if verbalized by the patient): Female Spiritual care concerns: No Agree to blood products: Yes Meds Home Medications and Allergies Home Medications ?Medication ?Instructions ?Recorded ?Confirmed ?Type bisoprolol fumarate 5 mg tablet 5 mg PO DAILY 07/05/19 04/21/25 History budesonide-formoterol HFA 160 2 puff inhalation Q12H 07/05/19 04/21/25 History mcg-4.5 mcg/actuation aerosol inhaler (Symbicort) cyanocobalamin (vitamin B-12) 1,000 mcg PO QAM #30 tabs 12/12/22 04/21/25 Rx 1,000 mcg tablet (Vitamin B-12) fluticasone propionate 50 2 spray intranasal BID 12/08/23 04/21/25 History mcg/actuation nasal spray,suspension sacubitril 24 mg-valsartan 26 mg 1 tablet PO BID 12/08/23 04/21/25 History tablet (Entresto) albuterol sulfate 2.5 mg/3 mL 2.5 mg inhalation Q6H PRN 03/08/24 04/21/25 History (0.083 %) solution for nebulization shortness of breath or wheezing triamcinolone acetonide 0.025 % 1 applic topical BID PRN psoriatic 03/08/24 04/21/25 Rx topical ointment plaques #454 grams Held on 04/21/25. Instructions: Patient Condition [id number] 250 1 tablet PO .PRN PRN pain 05/31/24 04/21/25 History mg-250 mg-65 mg tablet (Excedrin Extra Strength) azelastine 205.5 mcg (0.15 %) 1 spray intranasal QHS #30 mL 10/17/24 04/21/25 Rx nasal spray (Astepro Allergy) cholecalciferol (vitamin D3) 1,250 1,250 mcg PO MONTHLY #3 caps 10/17/24 04/21/25 Rx mcg (50,000 unit) capsule folic acid 1 mg tablet 1 mg PO DAILY #30 tabs 10/17/24 04/21/25 Rx furosemide 20 mg tablet 20 mg PO BID PRN edema #180 tabs 10/17/24 04/21/25 Rx umeclidinium 62.5 mcg/actuation 1 inh inhalation DAILY #90 ea 10/17/24 04/21/25 Rx blister powder for inhalation albuterol sulfate 90 mcg/actuation See Rx Instructions .Route 01/22/25 04/21/25 Rx aerosol inhaler .COMPLEX #6.7 grams oxycodone-acetaminophen 10 mg-325 1 tablet PO Q8H PRN Pain #90 tabs 03/21/25 04/21/25 Rx mg tablet apixaban 5 mg tablet (Eliquis) 5 mg PO BID 04/10/25 04/21/25 History azithromycin 250 mg tablet See Rx Instructions PO .COMPLEX #6 04/16/25 04/21/25 Rx (Zithromax) tabs prednisone 20 mg tablet 40 mg (2 x 20 mg) PO DAILY 5 days 04/16/25 04/21/25 Rx #10 tabs doxycycline monohydrate 100 mg 100 mg PO DAILY #20 caps 04/19/25 04/21/25 Rx capsule ipratropium bromide 0.02 % 2.5 ml inhalation Q6H PRN 04/21/25 04/21/25 Rx solution for inhalation shortness of breath or wheezing #75 mL Allergies Allergy/AdvReac Type Severity Reaction Status Date / Time shellfish derived Allergy Intermediate Hives Verified 04/21/25 15:34 cephalexin Allergy Mild HIVES Verified 04/21/25 15:34 adhesive tape Allergy Rash Verified 04/21/25 15:34 empagliflozin (From AdvReac Intermediate Other Verified 04/21/25 15:34 Jardiance) aspirin AdvReac Unknown STOMACH Verified 04/21/25 15:34 IRRITATION ibuprofen AdvReac Unknown STOMACH Verified 04/21/25 15:34 IRRITATION METAL Allergy Intermediate Unknown Uncoded 04/10/25 15:45 SHELLFISH Allergy Intermediate HIVES Uncoded 04/10/25 15:45 MULTIPLE ANTIBIOTICS Allergy Mild Unknown Uncoded 04/10/25 15:45 Vital Signs Vital Signs - 24 hr 04/21/25 06:30 04/21/25 07:14 04/21/25 08:14 Temperature 98.1 F 97.6 F Pulse Rate 93 93 83 Respiratory Rate 28 H 20 23 H Blood Pressure 156/83 H 156/86 H Pulse Oximetry 93 96 Oxygen Delivery Nasal Cannula Oxygen Flow Rate 2 04/21/25 08:15 04/21/25 08:15 04/21/25 08:15 Temperature 97.9 F Pulse Rate 85 87 Respiratory Rate 16 20 Blood Pressure 149/81 H Pulse Oximetry 95 95 97 Oxygen Delivery Nasal Cannula Nasal Cannula Oxygen Flow Rate 2 2 04/21/25 08:16 04/21/25 08:30 04/21/25 08:31 Temperature Pulse Rate 87 75 74 Respiratory Rate 18 24 H 20 Blood Pressure 149/81 H 139/72 Pulse Oximetry 97 94 96 Oxygen Delivery Oxygen Flow Rate 04/21/25 08:47 04/21/25 08:57 04/21/25 09:00 Temperature Pulse Rate 71 72 71 Respiratory Rate 21 H 17 17 Blood Pressure Pulse Oximetry 96 99 Oxygen Delivery Oxygen Flow Rate 04/21/25 09:01 04/21/25 09:03 04/21/25 09:16 Temperature Pulse Rate 74 80 76 Respiratory Rate 19 17 22 H Blood Pressure 152/63 H Pulse Oximetry 99 90 Oxygen Delivery Oxygen Flow Rate 04/21/25 09:33 04/21/25 09:38 04/21/25 10:03 Temperature Pulse Rate 70 78 73 Respiratory Rate 21 H 20 22 H Blood Pressure 149/73 H Pulse Oximetry 94 96 96 Oxygen Delivery Oxygen Flow Rate 04/21/25 10:15 04/21/25 10:30 04/21/25 10:31 Temperature Pulse Rate 75 71 69 Respiratory Rate 22 H 21 H 22 H Blood Pressure 144/61 H Pulse Oximetry 96 97 97 Oxygen Delivery Oxygen Flow Rate 04/21/25 10:47 04/21/25 11:10 04/21/25 11:39 Temperature Pulse Rate 70 79 96 Respiratory Rate 21 H 15 17 Blood Pressure Pulse Oximetry 97 96 97 Oxygen Delivery Oxygen Flow Rate 04/21/25 11:45 04/21/25 12:23 04/21/25 12:30 Temperature Pulse Rate 93 82 76 Respiratory Rate 20 22 H 22 H Blood Pressure 166/72 H Pulse Oximetry 96 97 98 Oxygen Delivery Oxygen Flow Rate 04/21/25 12:45 04/21/25 12:54 04/21/25 12:55 Temperature Pulse Rate Respiratory Rate Blood Pressure 186/98 H Pulse Oximetry 97 98 98 Oxygen Delivery Oxygen Flow Rate 04/21/25 12:56 04/21/25 12:58 04/21/25 13:00 Temperature Pulse Rate 91 Respiratory Rate 26 H Blood Pressure Pulse Oximetry 97 98 Oxygen Delivery Nasal Cannula Oxygen Flow Rate 3 04/21/25 13:01 04/21/25 13:02 04/21/25 13:40 Temperature Pulse Rate 91 Respiratory Rate 25 H Blood Pressure 167/71 H Pulse Oximetry 98 96 Oxygen Delivery Oxygen Flow Rate Assessment and Plan Assessment and plan (1) COPD (chronic obstructive pulmonary disease): Qualifiers: COPD type: unspecified COPD Qualified Code(s): J44.9 - Chronic obstructive pulmonary disease, unspecified Code(s): J44.9 - Chronic obstructive pulmonary disease, unspecified Status: Chronic Assessment and Plan: Increased dyspnea with symptoms starting 5 days ago with worsening today. Patient states ?every time I stand up by have an asthma attack.? Chest x-ray with no acute cardiopulmonary findings. Chest CT with 14 mm right upper lobe pulmonary nodule suspicious for primary bronchogenic carcinoma. Mild emphysema. Symptoms likely anxiety driven. Patient is not hypoxic. -prednisone 60 mg once given in ED -50 mg prednisone p.o. daily -DuoNebs q.6 hours scheduled -albuterol inhaler Q 4 p.r.n. -continue Advair, Incruse Ellipta (2) Anxiety: Code(s): F41.9 - Anxiety disorder, unspecified Status: Chronic Assessment and Plan: Patient has a history of anxiety and has been offered medications by her PCP in the past but she refused. Patient does not like the way the medications make her feel. -start hydroxyzine 25 Q 6 p.r.n. (3) Incidental pulmonary nodule: Code(s): R91.1 - Solitary pulmonary nodule Status: Acute Assessment and Plan: Chest CT with 14 mm right upper lobe pulmonary nodule suspicious for primary bronchogenic carcinoma. Mild emphysema -pulmonary consult for further recommendations (4) Physical deconditioning: Code(s): R53.81 - Other malaise Status: Acute Assessment and Plan: Patient states she ?cannot walk? because she has ?asthma attacks? every time she stands up. -PT/OT eval (5) CHF (congestive heart failure), NYHA class I: Qualifiers: Congestive heart failure chronicity: chronic Congestive heart failure type: systolic Qualified Code(s): I50.22 - Chronic systolic (congestive) heart failure Code(s): I50.9 - Heart failure, unspecified Status: Acute Assessment and Plan: Most recent echo on 07/03/2024 with ejection fraction of 45%. Patient does have a prescription for 20 mg furosemide b.i.d. p.r.n. for swelling. Patient does not take it because it gives her ?cotton mouth.? BNP 1580 -20 mg IVP Lasix once -20 mg Lasix p.o. daily - echo ordered -trend BNP -trend CMP -continue Entresto (6) Atrial fibrillation: Qualifiers: Atrial fibrillation type: paroxysmal Qualified Code(s): I48.0 - Paroxysmal atrial fibrillation Code(s): I48.91 - Unspecified atrial fibrillation Status: Acute Assessment and Plan: EKG on 04/20 shows sinus rhythm. Sinus rhythm on the monitor in ED -continue Eliquis Plan Diet: Heart healthy GI prophylaxis: NA DVT prophylaxis: SCDs lines/drains: PIV Fluids: NA Code status: Full Quality VTE Prophylaxis VTE prophylaxis: mechanical ordered Hospitalist MIPS Advance Care Plan I have confirmed that the patient's Advanced Care Plan is present, code status is documented, or surrogate decision maker is listed in patient medical record.: Yes Medication Reconciliation I have utilized all available resources to obtain, update and review the patients current medications (includes all prescriptions, OTC, herbals, cannabis, and nutritional supplements).: Yes
--- NOTE | 2025-04-21 14:29 | ADMGEN ---
This patient, Louise Cox, was admitted to Medical Room 342-01. Patient/family oriented to hospital policies and general routines including ID bracelet, bed and alarms, visiting hours, pain management, procedures, bathroom and other care routines, personal items, smoking policy, room service/diet, and visiting hours. Information on how to activate the Rapid Response Team has been discussed. Patient/Family are encouraged to report perceived risks to care and to ask questions if they do not understand what they are told or what they should do.
[2025-04-21] MEDS: SACUBITRIL/VALSARTAN 24-26 MG TABLET 1 TAB PO (17:02)
[2025-04-21] MEDS: FUROSEMIDE INJ 40 MG/4 ML VIAL 20 MG IV PUSH (17:02)
[2025-04-21] MEDS: FLUTICASONE/SALMETEROL 115-21 MCG INHALER 1 PUFF 2 PUFF INHALATION (17:33)
[2025-04-21] MEDS: oxyCODONE/ACETAMINOPHEN (*CRX) 10-325 MG TABLET 1 TAB PO (18:02)
[2025-04-21] MEDS: APIXABAN 5 MG TABLET PO (21:54)
[2025-04-21] MEDS: AZELASTINE HCL NASAL 0.1% 137 MCG/SPR 30 ML BTL 1 SPRAY NASAL (21:55)
[2025-04-22] VITALS (10 sets, daily range): BP systolic 108–155; BP diastolic 51–84; PULSE 68–91; RESP 16–21; TEMP 36.3–37; O2SAT 92–98
--- NOTE | 2025-04-22 | ECHO_ITS ---
Patient Info Name: Louise Cox Age: 65 years : 1960 Gender: Female Ht: 65 in Wt: 253 lbs BSA: 2.35 m2 HR: 82 bpm BP: 108 / 84 mmHg Heart Rhythm: Sinus Rhythm Technical Quality: Fair Exam Date: 04/22/2025 10:51 AM Patient Status: I Admit Date: 04/22/2025 Exam Type: CA echo doppler color flow Complete two-dimensional, color flow and Doppler transthoracic echocardiogram is performed. Sql Manager: Cherise Mednia Attending Provider: Neo Azar Summary 1. Complete two-dimensional, color flow and Doppler transthoracic echocardiogram is performed. 2. Left ventricular chamber dimension is normal. 3. Left ventricular systolic function is normal, estimated at 55-60. 4. The left ventricular diastolic function is grade I diastolic dysfunction. 5. E/e' 11 is mildly elevated. 6. The aortic valve is not well visualized. Cannot determine number of aortic valve leaflets. Left Ventricle E/e' 11 is mildly elevated. Left ventricular chamber dimension is normal. Left ventricular systolic function is normal, estimated at 55-60. The left ventricular diastolic function is grade I diastolic dysfunction. Right Ventricle Right ventricular chamber dimension is normal. Right ventricular systolic function is normal. Left Atria Left atrial chamber dimension is normal. Right Atria Right atrial chamber dimension is normal. Aortic Valve The aortic valve is not well visualized. Cannot determine number of aortic valve leaflets. There is no aortic valve stenosis. There is no aortic valve regurgitation. Pulmonic Valve There is no pulmonic regurgitation. Mitral Valve There is no mitral valve stenosis. There is no mitral valve regurgitation. Tricuspid Valve There is no tricuspid valve regurgitation. Pericardium/Pleural There is no pericardial effusion. Inferior Vena Cava Normal inferior vena cava with >50% collapse upon inspiration consistent with normal right atrial pressure, 5 mmHg. Aorta The aortic root size at the sinus of Valsalva is normal. Left Ventricular Outflow Tract Name Value Normal LVOT 2D LVOT Diameter 2.0 cm LVOT Doppler LVOT Peak Velocity 107 cm/s LVOT Peak Gradient 5 mmHg LVOT Mean Gradient 2 mmHg LVOT VTI 17 cm LVOT VTI/AV VTI Ratio 0.7 LVOT Stroke Volume 52 ml LVOT CO 3.8 l/min LVOT CI 1.6 l/min/m2 Pulmonic Valve Name Value Normal RVOT Doppler RVOT Peak Velocity 113 cm/s RVOT Peak Gradient 5 mmHg PV Doppler PV Peak Velocity 121 cm/s PV Peak Gradient 6 mmHg Mitral Valve Name Value Normal MV Diastolic Function MV E Peak Velocity 69 cm/s MV A Peak Velocity 91 cm/s MV E/A 0.8 MV Decel Time (PW) 150 ms MV Annular TDI MV E/e' (Septal) 17.0 MV E/e' (Lateral) 15.0 MV E/e' (Average) 16.0 Tricuspid Valve Name Value Normal Estimated PAP/RSVP RA Pressure 5 mmHg <=5 TV Annular TDI TV Lateral Dawna s' Velocity 9.5 cm/s >=9.5 Aortic Valve Name Value Normal AV Doppler AV Peak Velocity 160 cm/s AV Peak Gradient 10 mmHg AV Mean Gradient 5 mmHg AV VTI 24 cm AV Area (Cont Eq VTI) 2.2 cm2 >=3.0 AV Area (Cont Eq Jorge Luis) 2.0 cm2 AV DI (Jorge Luis) 0.67 AV Regurgitation 2D LVOT Area 3.0 cm2 Ventricles Name Value Normal LV Dimensions 2D/MM IVS Diastolic Thickness (2D) 0.9 cm 0.6-1.0 LVID Diastole (2D) 5.2 cm 3.8-5.2 LVIW Diastolic Thickness (2D) 1.0 cm 0.6-0.9 LVID Systole (2D) 3.7 cm 2.2-3.5 LVOT Diameter 2.0 cm LV Mass (2D Cubed) 179.14 g 67.00-162.00 LV Mass Index (2D Cubed) 76 g/m2 43-95 Relative Wall Thickness (2D) 0.38 <=0.42 LV Fractional Shortening/Ejection Fraction 2D/MM LV Fractional Shortening (2D) 29 % 27-45 LV EF (2D Teichholz) 55 % LV Diastolic Volume (4C MOD) 86 ml LV EF (4C MOD) 62 % LV Diastolic Volume (2C MOD) 41 ml LV EF (2C MOD) 56 % LV Diastolic Volume (BP MOD) 67 ml 46-106 LV Diastolic Volume Index (BP MOD) 28 ml/m2 29-61 LV Systolic Volume (BP MOD) 27 ml 14-42 LV Systolic Volume Index (BP MOD) 11 ml/m2 8-24 LV EF (BP MOD) 60 % 54-74 LV Diastolic Length (4C) 7.4 cm LV Systolic Length (4C) 6.4 cm LV Stroke Volume (4C MOD) 53 ml Atria Name Value Normal LA Dimensions LA Volume (4C A-L) 45 ml LA Volume (BP A-L) 42 ml RA Dimensions RA Area (4C) 14.4 cm2 <=18.0 Report Signatures
[2025-04-22] MEDS: IPRATROPIUM 0.5 MG/ALBUTEROL SULFATE 2.5 MG (BASE) AMPUL.NEB 3 ML INHALATION ×4 (01:47→21:20)
[2025-04-22] MEDS: oxyCODONE/ACETAMINOPHEN (*CRX) 10-325 MG TABLET 1 TAB PO ×3 (02:16→23:54)
[2025-04-22 05:11] LABS: Hematocrit 43.5 % (37.0-47.0); Hemoglobin 13.4 g/dL (12.0-15.0); Immature Granulocyte Percent A 0.4 % (0-0.5); Lymphocytes Absolute Auto 1.63 K/mm3 (0.9-3.2); Mean Corpuscular HGB Conc 30.8 g/dl (32-36); Mean Corpuscular Hemoglobin 29.3 pg (26-34); Mean Corpuscular Volume 95.2 fl (80-100); Nucleated Red Blood Cells Absolute Auto 0.000 K/mm3 (0.0-0.012); Nucleated Red Blood Cells Perc 0.0 % (0.0-0.2); Platelet Count Result 210 k/mm3 (150-375); Red Blood Count 4.57 M/mm3 (4.2-5.4); White Blood Count 9.2 K/mm3 (4.5-10.0)
[2025-04-22 05:33] LABS: Alanine Aminotransferase 71 U/L (6-35); Albumin Level 3.8 g/dL (3.5-5.1); Alkaline Phosphatase 60 U/L (38-126); Anion Gap 6 mmol/L (4-12); Aspartate Amino Transferase 33 U/L (14-36); Bilirubin,Total 0.5 mg/dL (0.2-1.3); Blood Urea Nitrogen 32 mg/dL (7-17); Calcium 8.5 mg/dL (8.4-10.2); Carbon Dioxide 36 mmol/L (22-30); Chloride 94 mmol/L (98-107); Estimated CRCL calculation 66 ml/min; Estimated Glomerular Filt Rate 59; Glucose 131 mg/dL (65-110); Potassium 3.6 mmol/L (3.4-5.0); Sodium 136 mmol/L (137-145); Total Protein 7.0 g/dL (6.3-8.2)
[2025-04-22 05:39] LABS: NT Pro B Type Natriuretic Pept 821 pg/mL (19.9-100)
[2025-04-22] MEDS: UMECLIDINIUM BROMIDE 62.5 MCG ELLIPTA 1 PUFF INHALATION (07:23)
[2025-04-22] MEDS: FLUTICASONE/SALMETEROL 115-21 MCG INHALER 1 PUFF 2 PUFF INHALATION ×2 (07:23→21:20)
--- NOTE | 2025-04-22 08:18 | P.PNIM_ITS ---
Progress Note: A&P Assessment and Plan (1) COPD (chronic obstructive pulmonary disease): Qualifiers: COPD type: unspecified COPD Qualified Code(s): J44.9 - Chronic obstructive pulmonary disease, unspecified Code(s): J44.9 - Chronic obstructive pulmonary disease, unspecified Status: Chronic Assessment and Plan: Increased dyspnea with symptoms starting 5 days ago with worsening today. ABG unremarkable Chest x-ray with no acute cardiopulmonary findings. Chest CT showed mild emphysema - Duonebz q6H and Albuterol q4H prn - continue Advair, Incruse Ellipta - Received 60 mg prednisone x1 in the ED, currently on 50 mg prednisone daily - Monitor vital signs, I&Os, neuro status and patient is a fall risk - Monitor serum electrolytes, cultures and CBC - Monitor Oxygen saturation, Oxygen via NC; wean oxygen as tolerated, keep SpO2 greater than 88 - Pulmonary consult for further recommendations Patient has home oxygen that she wears intermittently while at rest. She refuses to wear oxygen with activity. She notes that she will drop into the mid to low 80s with activity, discussed with her that this shows she likely requires oxygen with activity. She adamantly refuses oxygen with ambulation. Discussed the risks of low oxygen levels and that the anxiety attacks may be related to low oxygen and feeling short of breath. She states understanding. (2) Incidental pulmonary nodule: Code(s): R91.1 - Solitary pulmonary nodule Status: Inactive Assessment and Plan: Chest CT with 14 mm right upper lobe pulmonary nodule suspicious for primary bronchogenic carcinoma. Patient states she does not want further testing and does not plan on receiving any interventions in terms of the pulmonary nodule (3) CHF (congestive heart failure), NYHA class I: Qualifiers: Congestive heart failure chronicity: chronic Congestive heart failure type: systolic Qualified Code(s): I50.22 - Chronic systolic (congestive) heart failure Code(s): I50.9 - Heart failure, unspecified Status: Acute Assessment and Plan: Most recent echo on 07/03/2024 with ejection fraction of 45%. Patient does have a prescription for 20 mg furosemide b.i.d. p.r.n. for swelling. Patient does not take it because it gives her ?cotton mouth.? - BNP slightly elevated - Chest XR and CT non concerning for edema or effusions - Echo 07/03/24: LVEF 45% with grade I diastolic dysfunction - Received 20 mg IV lasix in the ED x1, continue 20 mg lasix PO daily - Continue entresto daily and bisoprolol 5 mg daily - Monitor vital signs, I&Os, BUN/creatinine, daily weights, neuro status and patient is a fall risk - Monitor serum electrolytes, Keep serum Potassium>4 and serum Magnesium>2 and CBC Lungs are clear on auscultation. Appears euvolemic. Continue to monitor volume status. (4) Anxiety: Code(s): F41.9 - Anxiety disorder, unspecified Status: Chronic Assessment and Plan: Patient has a history of anxiety and has been offered medications by her PCP in the past but she refused. Continue hydroxyzine 25 Q 6 p.r.n. (5) Physical deconditioning: Code(s): R53.81 - Other malaise Status: Acute Assessment and Plan: Patient states she ?cannot walk? because she has ?asthma attacks? every time she stands up. -PT/OT eval (6) Atrial fibrillation: Qualifiers: Atrial fibrillation type: paroxysmal Qualified Code(s): I48.0 - Paroxysmal atrial fibrillation Code(s): I48.91 - Unspecified atrial fibrillation Status: Acute Assessment and Plan: Chronic, currently in sinus rhythm as seen on EKG on admission - Continue bisoprolol and eliquis Time Spent With Patient Time with patient: 25 - 35 minutes Subjective Date/time seen: 04/22/25 08:18 Interval history: 65-year-old female with a past medical history of COPD no home O2, CHF, anxiety, AFib, HTN, hyperlipidemia, CVA presents to the hospital on 04/21/2025 with complaints of increased dyspnea. Patient is pleasant sitting up on the side of bed. She notes slight congestion but denies any shortness of breath. She is currently on room air. Patient has home oxygen that she wears intermittently while at rest. She refuses to wear oxygen with activity. She notes that she will drop into the mid to low 80s with activity, discussed with her that this shows she likely requires oxygen with activity. She adamantly refuses oxygen with ambulation. Discussed the risks of low oxygen levels and that the anxiety attacks may be related to low oxygen and feeling short of breath. She states understanding. Discussed the pulmonary nodule that was seen on imaging and patient states she does not want further testing or intervention to the nodule. Patient has no other complaints denying chest pain, palpitations, nausea/vomiting abdominal pain and dizziness/lightheadedness with ambulation. Review of Systems Review of Systems: All systems reviewed & are unremarkable except as noted in HPI and below Exam Narrative: AF HR 86 RR 18 Spo2 94 BP 129/58 General: female in no acute respiratory distress who is nontoxic appearing, sit ting up on the side of bed. HEENT: Normocephalic. Atraumatic. Extraocular movement intact. Sclera clear and anicteric. No facial asymmetry. Chest: Lungs are clear to auscultation bilaterally. No wheezes or crackles. Speaking full sentences. CV: Heart was regular rate and rhythm. Abd: Abdomen was soft. Nontender. Nondistended. Positive bowel sounds. Ext: No clubbing, cyanosis, or edema. DP pulses bilaterally. Neuro: Patient is alert. Speech is clear. Objective Data Vital Signs Vital Signs: Vital Signs - 24 hr 04/21/25 08:30 04/21/25 08:31 04/21/25 08:47 Temperature Pulse Rate 75 74 71 Respiratory Rate 24 H 20 21 H Blood Pressure 139/72 Pulse Oximetry 94 96 96 Oxygen Delivery Oxygen Flow Rate 04/21/25 08:57 04/21/25 09:00 04/21/25 09:01 Temperature Pulse Rate 72 71 74 Respiratory Rate 17 17 19 Blood Pressure 152/63 H Pulse Oximetry 99 99 Oxygen Delivery Oxygen Flow Rate 04/21/25 09:03 04/21/25 09:16 04/21/25 09:33 Temperature Pulse Rate 80 76 70 Respiratory Rate 17 22 H 21 H Blood Pressure Pulse Oximetry 90 94 Oxygen Delivery Oxygen Flow Rate 04/21/25 09:38 04/21/25 10:03 04/21/25 10:15 Temperature Pulse Rate 78 73 75 Respiratory Rate 20 22 H 22 H Blood Pressure 149/73 H Pulse Oximetry 96 96 96 Oxygen Delivery Oxygen Flow Rate 04/21/25 10:30 04/21/25 10:31 04/21/25 10:47 Temperature Pulse Rate 71 69 70 Respiratory Rate 21 H 22 H 21 H Blood Pressure 144/61 H Pulse Oximetry 97 97 97 Oxygen Delivery Oxygen Flow Rate 04/21/25 11:10 04/21/25 11:39 04/21/25 11:45 Temperature Pulse Rate 79 96 93 Respiratory Rate 15 17 20 Blood Pressure 166/72 H Pulse Oximetry 96 97 96 Oxygen Delivery Oxygen Flow Rate 04/21/25 12:23 04/21/25 12:30 04/21/25 12:45 Temperature Pulse Rate 82 76 Respiratory Rate 22 H 22 H Blood Pressure Pulse Oximetry 97 98 97 Oxygen Delivery Oxygen Flow Rate 04/21/25 12:54 04/21/25 12:55 04/21/25 12:56 Temperature Pulse Rate 91 Respiratory Rate 26 H Blood Pressure 186/98 H Pulse Oximetry 98 98 Oxygen Delivery Oxygen Flow Rate 04/21/25 12:58 04/21/25 13:00 04/21/25 13:01 Temperature Pulse Rate 91 Respiratory Rate 25 H Blood Pressure Pulse Oximetry 97 98 Oxygen Delivery Nasal Cannula Oxygen Flow Rate 3 04/21/25 13:02 04/21/25 13:40 04/21/25 17:32 Temperature Pulse Rate 82 Respiratory Rate 20 Blood Pressure 167/71 H Pulse Oximetry 98 96 Oxygen Delivery Oxygen Flow Rate 04/21/25 17:42 04/21/25 22:00 04/22/25 04:16 Temperature 97.6 F 98.6 F Pulse Rate 88 100 82 Respiratory Rate 20 18 18 Blood Pressure 137/60 108/84 Pulse Oximetry 94 98 Oxygen Delivery Oxygen Flow Rate 04/22/25 07:24 04/22/25 07:24 04/22/25 07:31 Temperature Pulse Rate 72 72 68 Respiratory Rate 20 20 Blood Pressure Pulse Oximetry 98 Oxygen Delivery Nasal Cannula Oxygen Flow Rate 2 Intake/Output Intake/Output: Intake & Output 04/19/25 04/20/25 04/21/25 04/22/25 23:59 23:59 22:59 23:59 Intake Total 600 350 Output Total 400 Balance 200 350 Meds/Results Medications: Active Medications Generic Name Dose Route Start Last Admin Trade Name Freq PRN Reason Stop Dose Admin Acetaminophen 650 mg 04/21/25 12:46 Acetaminophen 325 Mg Tablet PO Q4H PRN Mild Pain (1-3) or Fever Albuterol 2 puff 04/21/25 14:55 Albuterol Sulfate (*Sp) Aerosol 1 Puff INHALATION Q4H PRN Shortness Of Breath Albuterol/Ipratropium 3 ml 04/21/25 14:00 04/22/25 07:23 Ipratropium 0.5 Mg/Albuterol Sulfate 2.5 Mg (Base) Ampul.Neb 3 Ml INHALATION 3 ml Q6HRT TAE Administration Apixaban 5 mg 04/21/25 21:00 04/21/25 21:54 Apixaban 5 Mg Tablet PO 5 mg Q12HR TAE Administration Azelastine HCl 1 spray 04/21/25 21:00 04/21/25 21:55 Azelastine Hcl Nasal 0.1% 137 Mcg/Spr 30 Ml Btl NASAL 1 spray QHS TAE Administration Bisoprolol Fumarate 5 mg 04/22/25 09:00 Bisoprolol Fumarate 5 Mg Tablet PO DAILY [facility] [place] Cyanocobalamin 1,000 mcg 04/22/25 09:00 Cyanocobalamin 1,000 Mcg Tablet PO QAM [facility] [place] Fluticasone Propionate 2 spray 04/21/25 17:00 04/21/25 17:04 Fluticasone Propionate 0.05% Na Spr 16 Gm Btl (*Bkc) NASAL Not Given BID [facility] [place] Folic Acid 1 mg 04/22/25 09:00 Folic Acid 1 Mg Tablet PO DAILY [facility] [place] Furosemide 20 mg 04/22/25 09:00 Furosemide 20 Mg Tablet PO DAILY [facility] [place] Hydroxyzine HCl 25 mg 04/21/25 14:36 04/22/25 01:11 Hydroxyzine Hcl 25 Mg Tablet PO 25 mg Q6H PRN Administration Anxiety Ondansetron HCl 4 mg 04/21/25 12:46 Ondansetron Inj 4 Mg/2 Ml Vial IV PUSH Q4H PRN Nausea Oxycodone/Acetaminophen 1 tab 04/21/25 15:47 04/22/25 02:16 Oxycodone/Acetaminophen (*Crx) 10-325 Mg Tablet PO 1 tab Q8H PRN Administration Pain 4-6 Perflutren Lipid Microsphere 0 ml 04/21/25 15:52 Perflutren Lipid Microspheres 1.5 Ml Vial Diluted To 10 Ml Total Volume IV PUSH 04/24/25 15:52 ONCE PRN adequate visualization Protocol Prednisone 40 mg/ Prednisone 50 mg 04/22/25 08:00 10 mg PO DAILY@0800 TAE Sacubitril/Valsartan 1 tab 04/21/25 17:00 04/21/25 17:02 Sacubitril/Valsartan 24-26 Mg Tablet PO 1 tab BID TAE Administration Fluticasone/Salmeterol 2 puff 11/02/25 20:00 04/22/25 07:23 Fluticasone/Salmeterol 115-21 Mcg Inhaler 1 Puff INHALATION 2 puff Q12HRT TAE Administration Umeclidinium [place] 1 puff 04/22/25 08:00 04/22/25 07:23 Umeclidinium [place] 62.5 Mcg Ellipta INHALATION 1 puff DAILYRT TAE Administration Labs Labs: Laboratory Results - last 24 hr 04/22/25 05:01 WBC 9.2 RBC 4.57 Hgb 13.4 Hct 43.5 MCV 95.2 MCH 29.3 MCHC 30.8 L RDW 14.6 H Plt Count 210 MPV 10.5 H Immature Gran % (Auto) 0.4 Neut % (Auto) 72.3 Lymph % (Auto) 17.7 L [place] % (Auto) 9.4 H Eos % (Auto) 0.0 Baso % (Auto) 0.2 Lymph # (Auto) 1.63 [place] # (Auto) 0.9 H Eos # (Auto) 0.0 Baso # (Auto) 0.0 Abs Immat Gran (auto) 0.04 H Absolute Neuts (auto) 6.7 Absolute Nucleated RBC 0.000 Nucleated RBC % 0.0 Sodium 136 L Potassium 3.6 Chloride 94 L Carbon Dioxide 36 H Anion Gap 6 BUN 32 H D Creatinine 0.95 Estim Creat Clear Calc 66 Estimated GFR 59 Glucose 131 H Calcium 8.5 Total Bilirubin 0.5 AST 33 ALT 71 H Alkaline Phosphatase 60 NT-Pro-B Natriuret Pep 821 H Total Protein 7.0 Albumin 3.8 Quality VTE Prophylaxis VTE prophylaxis: pharmacologic ordered
[2025-04-22] MEDS: FOLIC ACID 1 MG TABLET PO (09:24)
[2025-04-22] MEDS: APIXABAN 5 MG TABLET PO ×2 (09:24→22:01)
[2025-04-22] MEDS: FUROSEMIDE 20 MG TABLET PO (09:24)
[2025-04-22] MEDS: SACUBITRIL/VALSARTAN 24-26 MG TABLET 1 TAB PO ×2 (09:25→17:25)
[2025-04-22] MEDS: CYANOCOBALAMIN 1,000 MCG TABLET 1000 MCG PO (09:25)
[2025-04-22] MEDS: predniSONE 40 MG, predniSONE 10 MG 50 MG PO (09:25)
[2025-04-22] MEDS: FLUTICASONE PROPIONATE 0.05% NA SPR 16 GM BTL (*BKC) 2 SPRAY NASAL ×2 (09:35→17:25)
--- NOTE | 2025-04-22 17:12 | P.CONPL_ITS ---
Assessment and Plan Assessment and plan (1) Pulmonary nodule: Code(s): R91.1 - Solitary pulmonary nodule Status: Acute Assessment and Plan: She has a 14 mm RUL pulmonary nodule, no prior images to compare. She is adamant that she does not want evaluation of this, told me the same thing in her initial pulmonary visit 11/14/2024. She has a heavy history of smoking, quit about 3 or 4 years ago. Radiologist interprets her images high likelihood for bronchogenic carcinoma. (2) COPD (chronic obstructive pulmonary disease): Qualifiers: COPD type: unspecified COPD Qualified Code(s): J44.9 - Chronic obstructive pulmonary disease, unspecified Code(s): J44.9 - Chronic obstructive pulmonary disease, unspecified Status: Chronic Assessment and Plan: She has baseline asthma- COPD, is on controller medication at home, Symbicort 160/4.5 two puffs b.i.d and Incruse/umeclidinium 62.5 mcg per puff one daily. She developed increased dyspnea 5 days prior to admission, little sputum, some cough, no other symptoms. Chest x-ray does not show an infiltrate. This may be an exacerbation of COPD however she also has systolic dysfunction, she may have an overlap of cardiac decompensation with COPD. She told me that she has an asthma attack every time I stand up -she has increased anxiety when she cannot breathe. She did not have drop in saturation. I agree with her current treatment including bronchodilator, she is on Advair which is a substitution for her Symbicort. She said that she was not able to activate the Incruse Ellipta when she was sick at home. This was restarted this morning. (3) History of tobacco abuse: Code(s): Z87.891 - Personal history of nicotine dependence Status: Acute Assessment and Plan: Tobacco, has a total of 50 pack year history, has not smoked regularly since around 2022, has also used marijuana and uses it currently for chronic pain, has a medical card. Smoking marijuana is not recommended with lung disease. (4) Oxygen desaturation during sleep: Code(s): G47.34 - Idiopathic sleep related nonobstructive alveolar hypoventilation Status: Acute Assessment and Plan: She uses O2 during sleep. She should continue to do so this admission. Plan plan : 1) She does not want any evaluation of the right upper lobe pulmonary nodule. She is consistent, said this in her initial pulmonary office visit in October 2024. She understands that this may be lung cancer and that not treating it can lead to growth, increased symptoms and deterioration including worsening shortness of breath. 2) Asthma/COPD; her baseline controller medication includes Symbicort 160/4.5 and Incruse/umeclidinium 62.5 mcg per puff, LAMA. She wants to have the option of nebulized albuterol and ipratropium at home in the event of decompensation. At discharge, I will send nebulized ipratropium which she has the option of using with nebulized albuterol however she should not use ipratropium on the same day that she uses Incruse, long acting anticholinergic. This is overlap. Both of these medications can exacerbate her anxiety. I am going to order an extended respiratory pathogen panel. This can be helpful in determining a cause for her deterioration. The patient is not in favor of having vaccinations. She had an admission Jun due to influenza A, COPD exacerbation, and acute and chronic hypercapnic hypoxemic respiratory failure. Her quad serolgy was negative this admission. 3) Anxiety; she has baseline anxiety which is worse when she can not breathe. This is not surprising. Patient is said that she does not want treatment for anxiety. I do not agree with her treatment plan. Managing anxiety may be helpful especially as COPD is a progressive illness, worsening episodes of lung and or heart disease are associated with dyspnea which can augment anxiety. 4) Marijuana use; smoking is not advised. She has emphysema, smoking anything makes breathing worse. 5) She has a history of nocturnal hypoxemia and uses oxygen with sleep at home. I will add 2 L of oxygen for her to use while sleeping. History of Present Illness History of Present Illness Consult date: 04/22/25 Requesting physician: Keisha Rivas APRN Chief complaint: RUL nodule Narrative: pt was seen 04/22/2025 18:10 Room 342 NEW: Louise Cox is 65 years old female, I saw her as a new pulmonary office patient in October this year for asthma-COPD. She was seen in the ER with shortness of breath, admitted yesterday. She was seen the night before for the same shortness of breath with a negative work up, was too short of breath to walk more than a few feet, so she came back to the ER. She was short of breath for 5 days prior to being admitted, called her primary care and was started on prednisone which seemed to increase her anxiety. He she says the nebulized albuterol and 2nd medication, ipratropium, were very helpful coma she wonders about having this combination for use at home. She uses Incruse/ (umeclidinium) at home, has difficulty activating the inhaler when she is sick. She did not have diarrhea but she had loose bowel movements, had some nasal congestion and drainage,. mild, not severe. She has not had exposure to sick contacts. She says that azithromycin does not really help her, she benefits more from doxycycline when she is sick. Due to her psoriasis I recommended that she see a bridge worker apprentice. She tells me that she saw female bridge worker apprentice in [address] [place] [address], had biopsies in the left antecubital area, diagnosis was eczema, not psoriasis. She has a pattern that is very suggestive of psoriasis with involvement in the ear canal, scalp, and other locations. The biopsy from the left antecubital fossa she says was eczema only. She has had significant hypercapnia in the past, had arterial blood gases from June 2024 with pC02 around 98 with respiratory acidosis and partial metabolic compensation. DATA * 04/21/2025; chest CT; There is mild emphysema. There is a 14 mm nodule in right lung upper lobe. No pleural effusion. The heart size is normal. There are coronary artery calcifications. No pericardial effusion. There are changes of cholecystectomy. There is severe cervical and thoracic spondylosis. There is mild chronic anterior wedging of multiple thoracic vertebral bodies. IMPRESSION: 1. 14 mm right upper lobe pulmonary nodule suspicious for primary bronchogenic carcinoma. CT-guided biopsy is recommended. 2. Mild emphysema. * D-dimer 0.58; sodium 136, carbon dioxide 31, BUN 20, glucose 143, AST 38, ALT 100. BNP 1580, UDS positive for marijuana and opiates; wbc 7.8 on admission; hemoglobin 14.5 and hematocrit 47.6, Chest x-ray with no acute cardiopulmonary findings. Chest CT with 14 mm right upper lobe pulmonary nodule suspicious for primary bronchogenic carcinoma. Mild emphysema * 04/2125 arterial blood gas on 2 L pH 7.407, pCO2 44.1, pO2 71.7, HC03 27.1, saturation 94.5%, increased A-a gradient 75.9. * 04/20/2025 Serology neg for Influenza A, B, SARS-CoV-2, RSV. = = = = = = = = = = = 11/14/2024; new office visit; Louise Cox is transferring care here to be closer to home, Has asthma-COPD, She is on O2 at night. She is short of breath with exertion. 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 She was diagnosed in the last 10 years. She is a former smoker, none for the last 3-4 years. Her current COPD medications include Symbicort 160/4.5, 2 puffs b.i.d. and Incruse, 1 puff daily. She has Flonase and Astelin nasal sprays on her list. She has been on montelukast in the past, currently is not on them. CAT score is 23/40, moderate symptoms. She has coughing several times a day, total sputum produced is 1 tbsp white color, no blood. She has moderate chest tightness at times. She is able to do some activities such as let her dog out, wash dishes while sitting in a chair. She tries to conserve energy. She is short of breath walking up a flight of stairs. She is confident leaving her home despite her lung condition. Her sleep is not great but it is not primarily due to lung problems. She has cardiac disease in addition to lung disease. Her mat machine operator is Dr. Omaira Guzman and she sees Char Schilling GEOGRAPHICAL HISTORIAN at [facility]. She is on Entresto. She does not have all the energy she would like but she is able to accomplish things during the day that are important to her. Scooter: uses a walker or crutches at home, was trying to get a wheelchair; shoulders are on bad shape due to using walker and crutches. Puts all her weight on walker or crutches. Has had abnormal mobility, cane, in 2016. getting shots in hips , needs 2 hip replacements, has spinal stenosis, 5 herniated discs, sciatica. Tobacco: former. Quit off and on, none since 3-4 years ago. Started smoking at age 13, maximum 2 ppd, fewer cigarettes towards the end of 50 years of smoking. 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 O2- started using in 2023 when she was admitted July 03, 2024 with influenza A, was in the hospital 3 weeks. I reviewed the notes from [facility], diagnoses included hypertension, atrial fibrillation, HFrEF 45%, COPD-asthma, and anxiety. Asthma/COPD; COPD was diagnosed in the last 10 years, asthma has been life long. No one else has asthma. grandfather paternal - asthma and emphysema. She never has been on vent. DATA * 06/22/2023; CXR @[place]; Central venous congestive change versus pulmonary artery hypertension. * 07/11/2024; echo, [facility] while admitted. LV systolic function reduced estimated 45%. Left ventricle mildly dilated. Abnormal left ventricular segmental wall motion. Left ventricular diastolic function is grade 1. Right ventricle normal in size and function. Left and right atria are normal. Aortic valve not well visualized. No regurgitation. Mild aortic valve stenosis peak velocity 2.3 m/2nd, mean gradient 11 mm Hg, aortic valve area 1.65 centimeter squared pulmonic valve not well visualized. No pulmonic regurgitation. Mild mitral annular calcification. No mitral stenosis. Trace mitral regurgitation. Tricuspid valve not well visualized. No tricuspid stenosis. Compared to an echo in June 2023 her EF was 30%, now 45%, improved. * 08/06/2023; ER visit at [place], accidental overdose of oxycodone 10 mg - Tylenol 325 mg. Took 3 instead of 1. a Review of Systems 2 Review of Systems: All systems reviewed & are unremarkable except as noted in HPI and below [facility] Past Medical History Medical History Atrial fibrillation CAD (coronary artery disease) History of tobacco abuse History of stroke LBBB (left bundle branch block) Nonischemic cardiomyopathy CHF (congestive heart failure), NYHA class I Anxiety Bipolar 1 disorder Depression Lumbar herniated disc Osteoporosis Bilateral hips but unable to have surgery due to her respiratory problems Arthritis Asthma COPD (chronic obstructive pulmonary disease) HTN (hypertension) HLD (hyperlipidemia) TIA (transient ischemic attack) Surgical History Surgical History H/O section H/O tubal ligation Hx of cholecystectomy Hx of tonsillectomy Family History Family History Father Diabetes mellitus Heart disease Hypertension Mother Metastatic cancer Thyroid disorder Son Depression Anxiety Grandparent Cancer Depression Anxiety Heart problem Grandparent Diabetes mellitus Other Family history of arthritis Family history of cardiovascular disease Family history of malignant neoplasm History of blood clots Social History Social History Social History: The patient has 1 son who is Carlitos and Carlitos is her durable power workers compensation defense attorney for healthcare. She wishes to be a full code. She is disabled. She is . She stated that she quit smoking on and off for many years and was down to just a few cigarettes a day. Smoking packs per day: 1 Smoking cigarettes per day: 20.0 Years smoked: 40 Smoking pack-years: 40.00 Smoking status: Former smoker Second hand tobacco smoke exposure: Yes Alcohol intake: former Substance use: current Substance use type: marijuana Other substance usage details: maite, medical card, back pain control Do You Feel Safe in your Home?: Yes Lack of Transportation: No Lack of Food: Never True Current Housing: I Have Housing Concerned About Future Housing: No Difficulty Paying Gas/Electric Bills: No Difficulty Paying for Meds: YES Currently Unemployed: No Education: High School Diploma/GED Difficulty w/ Childcare or Family Care: No Living arrangements: alone Occupation/Education: other Gender identity (if verbalized by the patient): Female Spiritual care concerns: No Agree to blood products: Yes Meds Home Medications and Allergies Home Medications ?Medication ?Instructions ?Recorded ?Confirmed ?Type bisoprolol fumarate 5 mg tablet 5 mg PO DAILY 07/05/19 04/21/25 History budesonide-formoterol HFA 160 2 puff inhalation Q12H 0 07/05/19 04/21/25 History mcg-4.5 mcg/actuation aerosol inhaler (Symbicort) cyanocobalamin (vitamin B-12) 1,000 mcg PO QAM #30 tab s 12/12/22 04/21/25 Rx 1,000 mcg tablet (Vitamin B-12) fluticasone propionate 50 2 spray intranasal BID 12/0704/21/25 History mcg/actuation nasal spray,suspension sacubitril 24 mg-valsartan 26 mg 1 tablet PO BID 12/0704/21/25 History tablet (Entresto) albuterol sulfate 2.5 mg/3 mL 2.5 mg inhalation Q6H IL N 03/08/24 04/21/25 History (0.083 %) solution for nebulization shortness of breat h or wheezing triamcinolone acetonide 0.025 % 1 applic topical BID P RN psoriatic 03/08/24 04/21/25 Rx topical ointment plaques #454 grams Held on 04/21/25. Instructions: Patient Condition xuzyurr-doefypblxpqjp-pdguqhrr 250 1 tablet PO .PRN IL N pain 05/31/24 04/21/25 History mg-250 mg-65 mg tablet (Excedrin Extra Strength) azelastine 205.5 mcg (0.15 %) 1 spray intranasal QHS # 30 mL 10/17/24 04/21/25 Rx nasal spray (Astepro Allergy) cholecalciferol (vitamin D3) 1,250 1,250 mcg PO MONTHL Y #3 caps 10/17/24 04/21/25 Rx mcg (50,000 unit) capsule folic acid 1 mg tablet 1 mg PO DAILY #30 tabs 10/1704/21/25 Rx furosemide 20 mg tablet 20 mg PO BID PRN edema #180 tabs 10/17/24 04/21/25 Rx umeclidinium 62.5 mcg/actuation 1 inh inhalation DAILY #90 ea 10/17/24 04/21/25 Rx blister powder for inhalation albuterol sulfate 90 mcg/actuation See Rx Instructions .Route 01/22/25 04/21/25 Rx aerosol inhaler .COMPLEX #6.7 grams oxycodone-acetaminophen 10 mg-325 1 tablet PO Q8H PRN Pain #90 tabs 03/21/25 04/21/25 Rx mg tablet apixaban 5 mg tablet (Eliquis) 5 mg PO BID 04/10/25 History azithromycin 250 mg tablet See Rx Instructions PO .COM PLEX #6 04/16/25 04/21/25 Rx (Zithromax) tabs prednisone 20 mg tablet 40 mg (2 x 20 mg) PO DAILY 5 days 04/16/25 04/21/25 Rx #10 tabs doxycycline monohydrate 100 mg 100 mg PO DAILY #20 cap s 04/19/25 04/21/25 Rx capsule ipratropium bromide 0.02 % 2.5 ml inhalation Q6H PRN 1 06/21/24 04/21/25 Rx solution for inhalation shortness of breath or wheez ing #75 mL Allergies Allergy/AdvReac Type Severity Reaction Status Date / Time shellfish derived Allergy Intermediate Hives Verified 04/21/25 15:34 cephalexin Allergy Mild HIVES Verified 04/21/25 15:34 adhesive tape Allergy Rash Verified 04/21/25 15:34 empagliflozin (From AdvReac Intermediate Other Verified 04/21/25 15:34 Jardiance) aspirin AdvReac Unknown STOMACH Verified 04/21/25 15:34 IRRITATION ibuprofen AdvReac Unknown STOMACH Verified 04/21/25 15:34 IRRITATION METAL Allergy Intermediate Unknown Uncoded 04/10/25 15:45 SHELLFISH Allergy Intermediate HIVES Uncoded 04/10/25 15:45 MULTIPLE ANTIBIOTICS Allergy Mild Unknown Uncoded 04/10/25 15:45 Vital Signs Vital Signs - 24 hr 11/02/25 17:32 04/21/25 17:42 04/21/25 22:00 Temperature 36.4 C Pulse Rate 82 88 100 Respiratory Rate 20 20 18 Blood Pressure 137/60 Pulse Oximetry 94 Oxygen Delivery Oxygen Flow Rate 04/22/25 04:16 04/22/25 07:24 04/22/25 07:24 Temperature 37.0 C Pulse Rate 82 72 72 Respiratory Rate 18 20 Blood Pressure 108/84 Pulse Oximetry 98 98 Oxygen Delivery Nasal Cannula Oxygen Flow Rate 2 04/22/25 07:31 04/22/25 08:27 04/22/25 09:24 Temperature Pulse Rate 68 78 Respiratory Rate 20 Blood Pressure Pulse Oximetry Oxygen Delivery Nasal Cannula Oxygen Flow Rate 2 04/22/25 09:25 04/22/25 09:49 04/22/25 14:00 Temperature 36.3 C L Pulse Rate 86 Respiratory Rate 18 Blood Pressure 129/58 L Pulse Oximetry 95 94 Oxygen Delivery Room Air Nasal Cannula Oxygen Flow Rate 2 04/22/25 14:43 04/22/25 14:52 Temperature Pulse Rate 81 91 Respiratory Rate 21 H 21 H Blood Pressure Pulse Oximetry Oxygen Delivery Oxygen Flow Rate Exam 2 Narrative: GEN: Alert, oriented, not in distress. Not on O2 now, says she feels much better compared to when she was admitted HEENT: pupils are equal, EOMI, symmetrical face; oral membranes moist NECK: Trachea is midline CHEST: Equal air entry, symmetric excursion, minimal end expiratory wheezes in the lung bases CV: Regular S1S2 no m/g/r Extremities : no clubbing, cyanosis, or edema PSYCH: normal thought and speech, gait is not tested Results Laboratory Findings 04/22/25 05:01 04/22/25 05:01 Abnormal lab findings: Abnormal Labs 04/22/25 05:01 MCHC 30.8 L RDW 14.6 H MPV 10.5 H Lymph % (Auto) 17.7 L [place] % (Auto) 9.4 H [place] # (Auto) 0.9 H Abs Immat Gran (auto) 0.04 H Sodium 136 L Chloride 94 L Carbon Dioxide 36 H BUN 32 H D Glucose 131 H ALT 71 H NT-Pro-B Natriuret Pep 821 H
[2025-04-22] MEDS: AZELASTINE HCL NASAL 0.1% 137 MCG/SPR 30 ML BTL 1 SPRAY NASAL (22:00)
[2025-04-23] VITALS (11 sets, daily range): BP systolic 118–121; BP diastolic 45–46; PULSE 70–99; RESP 16–22; TEMP 36.3–36.8; O2SAT 90–95
[2025-04-23] MEDS: IPRATROPIUM 0.5 MG/ALBUTEROL SULFATE 2.5 MG (BASE) AMPUL.NEB 3 ML INHALATION ×4 (02:12→20:01)
[2025-04-23 05:10] LABS: Hematocrit 43.7 % (37.0-47.0); Hemoglobin 13.3 g/dL (12.0-15.0); Mean Corpuscular HGB Conc 30.4 g/dl (32-36); Mean Corpuscular Hemoglobin 29.4 pg (26-34); Mean Corpuscular Volume 96.7 fl (80-100); Platelet Count Result 213 k/mm3 (150-375); Red Blood Count 4.52 M/mm3 (4.2-5.4); White Blood Count 9.9 K/mm3 (4.5-10.0)
[2025-04-23 05:34] LABS: Alanine Aminotransferase 56 U/L (6-35); Albumin Level 3.6 g/dL (3.5-5.1); Alkaline Phosphatase 62 U/L (38-126); Anion Gap 2 mmol/L (4-12); Aspartate Amino Transferase 26 U/L (14-36); Bilirubin,Total 0.5 mg/dL (0.2-1.3); Blood Urea Nitrogen 29 mg/dL (7-17); Calcium 8.6 mg/dL (8.4-10.2); Carbon Dioxide 38 mmol/L (22-30); Chloride 96 mmol/L (98-107); Estimated CRCL calculation 75 ml/min; Estimated Glomerular Filt Rate > 60; Glucose 91 mg/dL (65-110); Potassium 4.0 mmol/L (3.4-5.0); Sodium 136 mmol/L (137-145); Total Protein 6.6 g/dL (6.3-8.2)
[2025-04-23] MEDS: FLUTICASONE/SALMETEROL 115-21 MCG INHALER 1 PUFF 2 PUFF INHALATION ×2 (07:37→20:13)
[2025-04-23] MEDS: UMECLIDINIUM BROMIDE 62.5 MCG ELLIPTA 1 PUFF INHALATION (07:37)
--- NOTE | 2025-04-23 08:29 | P.PNIM_ITS ---
Progress Note: A&P Assessment and Plan (1) COPD (chronic obstructive pulmonary disease): Qualifiers: COPD type: unspecified COPD Qualified Code(s): J44.9 - Chronic obstructive pulmonary disease, unspecified Code(s): J44.9 - Chronic obstructive pulmonary disease, unspecified Status: Chronic Assessment and Plan: Increased dyspnea with symptoms starting 5 days ago with worsening today. ABG unremarkable Chest x-ray with no acute cardiopulmonary findings. Chest CT showed mild emphysema - Duonebz q6H and Albuterol q4H prn - Continue baseline controller medication Symbicort 160/4.5 and Incruse/umeclidinium 62.5 mcg per puff, LAMA. - Received 60 mg prednisone x1 in the ED, currently on 50 mg prednisone daily - Viral panel negative. Extended respiratory pathogen panel. - Monitor vital signs, I&Os, neuro status and patient is a fall risk - Monitor serum electrolytes, cultures and CBC - Monitor Oxygen saturation, Oxygen via NC; wean oxygen as tolerated, keep SpO2 greater than 88 - Pulmonary consult for further recommendations Wants to have the option of nebulized albuterol and ipratropium at home in the event of decompensation. At discharge, will send nebulized ipratropium which she has the option of using with nebulized albuterol however she should not use ipratropium on the same day that she uses Incruse, long acting anticholinergic. This is overlap. Both of these medications can exacerbate her anxiety. Slight expiratory wheezing on exam. States shortness of breath improved today. Continue treatment as above. (2) Incidental pulmonary nodule: Code(s): R91.1 - Solitary pulmonary nodule Status: Inactive Assessment and Plan: Chest CT with 14 mm right upper lobe pulmonary nodule suspicious for primary bronchogenic carcinoma. Patient again states she does not want further testing and does not plan on receiving any interventions in terms of the pulmonary nodule (3) CHF (congestive heart failure), NYHA class I: Qualifiers: Congestive heart failure chronicity: chronic Congestive heart failure type: systolic Qualified Code(s): I50.22 - Chronic systolic (congestive) heart failure Code(s): I50.9 - Heart failure, unspecified Status: Acute Assessment and Plan: Most recent echo on 07/03/2024 with ejection fraction of 45%. Patient does have a prescription for 20 mg furosemide b.i.d. p.r.n. for swelling. Patient does not take it because it gives her ?cotton mouth.? - BNP slightly elevated - Chest XR and CT non concerning for edema or effusions - Echo 07/03/24: LVEF 45% with grade I diastolic dysfunction - Received 20 mg IV lasix in the ED x1, continue 20 mg lasix PO daily - Continue entresto daily and bisoprolol 5 mg daily - Monitor vital signs, I&Os, BUN/creatinine, daily weights, neuro status and patient is a fall risk - Monitor serum electrolytes, Keep serum Potassium>4 and serum Magnesium>2 and CBC Appears euvolemic. Continue to monitor volume status. (4) Anxiety: Code(s): F41.9 - Anxiety disorder, unspecified Status: Chronic Assessment and Plan: Patient has a history of anxiety and has been offered medications by her PCP in the past but she refused. Patient continues to refuse any senior care anxiety medications Discussed with patient that she may benefit from talk therapy as she notes she has a lot of life stressors contributing to her anxiety Continue hydroxyzine 25 Q 6 p.r.n., discussed with patient that this medication is as needed if she wants to take it for anxiety (5) Physical deconditioning: Code(s): R53.81 - Other malaise Status: Acute Assessment and Plan: Patient states she ?cannot walk? because she has ?asthma attacks? every time she stands up. -PT/OT eval, recommending home health - Patient agreeable and this is being set up per care coordination (6) Atrial fibrillation: Qualifiers: Atrial fibrillation type: paroxysmal Qualified Code(s): I48.0 - Paroxysmal atrial fibrillation Code(s): I48.91 - Unspecified atrial fibrillation Status: Acute Assessment and Plan: Chronic, currently in sinus rhythm as seen on EKG on admission - Continue bisoprolol and eliquis Time Spent With Patient Time with patient: 25 - 35 minutes Subjective Date/time seen: 04/23/25 08:29 Interval history: 65-year-old female with a past medical history of COPD no home O2, CHF, anxiety, AFib, HTN, hyperlipidemia, CVA presents to the hospital on 04/21/2025 with complaints of increased dyspnea. Patient is pleasant lying comfortably in bed. She continues to endorse shortness of breath With associated wheezing but states that this has slightly improved since admission. she has no other complaints denying chest pain, palpitations, nausea/ vomiting, and abdominal pain. Patient also denies any dizziness / lightheadedness with ambulation. Review of Systems Review of Systems: All systems reviewed & are unremarkable except as noted in HPI and below Exam Narrative: AF HR 82 RR 18 SpO2 90 BP 118/45 General: female in no acute respiratory distress who is nontoxic appearing, sitting up in bed. HEENT: Normocephalic. Atraumatic. Extraocular movement intact. Sclera clear and anicteric. No facial asymmetry. Chest: Lungs with slight expiratory wheezing on auscultation bilaterally. Speaking full sentences. CV: Heart was regular rate and rhythm. Abd: Abdomen was soft. Nontender. Nondistended. Positive bowel sounds. Ext: No clubbing, cyanosis, or edema. DP pulses bilaterally. Neuro: Patient is alert. Speech is clear. Objective Data Vital Signs Vital Signs: Vital Signs - 24 hr 04/22/25 09:24 04/22/25 09:25 04/22/25 09:49 Temperature Pulse Rate 78 Respiratory Rate Blood Pressure Pulse Oximetry 95 Oxygen Delivery Room Air Nasal Cannula Oxygen Flow Rate 2 Fraction of Inspired Oxygen 04/22/25 14:00 04/22/25 14:43 04/22/25 14:52 Temperature 97.4 F L Pulse Rate 86 81 91 Respiratory Rate 18 21 H 21 H Blood Pressure 129/58 L Pulse Oximetry 94 Oxygen Delivery Oxygen Flow Rate Fraction of Inspired Oxygen 04/22/25 21:20 04/22/25 21:20 04/22/25 22:00 Temperature 98.4 F Pulse Rate 86 86 86 Respiratory Rate 16 16 18 Blood Pressure 155/51 H Pulse Oximetry 92 94 Oxygen Delivery Room Air Oxygen Flow Rate Fraction of Inspired Oxygen 21 04/23/25 06:00 04/23/25 07:37 04/23/25 07:43 Temperature 98.2 F Pulse Rate 70 79 81 Respiratory Rate 18 16 18 Blood Pressure 118/45 L Pulse Oximetry 90 Oxygen Delivery Oxygen Flow Rate Fraction of Inspired Oxygen Intake/Output Intake/Output: Intake & Output 04/20/25 04/21/25 04/22/25 04/23/25 23:59 22:59 23:59 23:59 Intake Total 600 1070 Output Total 400 2 Balance 200 1068 Meds/Results Medications: Active Medications Generic Name Dose Route Start Last Admin Trade Name Freq PRN Reason Stop Dose Admin Acetaminophen 650 mg 04/21/25 12:46 Acetaminophen 325 Mg Tablet PO Q4H PRN Mild Pain (1-3) or Fever Albuterol 2 puff 04/21/25 14:55 Albuterol Sulfate (*Sp) Aerosol 1 Puff INHALATION Q4H PRN Shortness Of Breath Albuterol/Ipratropium 3 ml 04/21/25 14:00 04/23/25 07:37 Ipratropium 0.5 Mg/Albuterol Sulfate 2.5 Mg (Base) Ampul.Neb 3 Ml INHALATION 3 ml Q6HRT TAE Administration Apixaban 5 mg 04/21/25 21:00 04/22/25 22:01 Apixaban 5 Mg Tablet PO 5 mg Q12HR TAE Administration Azelastine HCl 1 spray 04/21/25 21:00 04/22/25 22:00 Azelastine Hcl Nasal 0.1% 137 Mcg/Spr 30 Ml Btl NASAL 1 spray QHS TAE Administration Bisoprolol Fumarate 5 mg 04/22/25 09:00 04/22/25 09:24 Bisoprolol Fumarate 5 Mg Tablet PO 5 mg DAILY TAE Administration Cyanocobalamin 1,000 mcg 04/22/25 09:00 04/22/25 09:25 Cyanocobalamin 1,000 Mcg Tablet PO 1,000 mcg QAM TAE Administration Fluticasone Propionate 2 spray 04/21/25 17:00 04/22/25 17:25 Fluticasone Propionate 0.05% Na Spr 16 Gm Btl (*Bkc) NASAL 2 spray BID TAE Administration Folic Acid 1 mg 04/22/25 09:00 04/22/25 09:24 Folic Acid 1 Mg Tablet PO 1 mg DAILY TAE Administration Furosemide 20 mg 04/22/25 09:00 04/22/25 09:24 Furosemide 20 Mg Tablet PO 20 mg DAILY TAE Administration Hydroxyzine HCl 25 mg 04/21/25 14:36 04/22/25 17:25 Hydroxyzine Hcl 25 Mg Tablet PO 25 mg Q6H PRN Administration Anxiety Ondansetron HCl 4 mg 04/21/25 12:46 Ondansetron Inj 4 Mg/2 Ml Vial IV PUSH Q4H PRN Nausea Oxycodone/Acetaminophen 1 tab 04/21/25 15:47 04/22/25 23:54 Oxycodone/Acetaminophen (*Crx) 10-325 Mg Tablet PO 1 tab Q8H PRN Administration Pain 4-6 Perflutren Lipid Microsphere 0 ml 04/21/25 15:52 Perflutren Lipid Microspheres 1.5 Ml Vial Diluted To 10 Ml Total Volume IV PUSH 04/24/25 15:52 ONCE PRN adequate visualization Protocol Prednisone 40 mg/ Prednisone 50 mg 04/22/25 08:00 04/22/25 09:25 10 mg PO 50 mg DAILY@0800 TAE Administration Sacubitril/Valsartan 1 tab 04/21/25 17:00 04/22/25 17:25 Sacubitril/Valsartan 24-26 Mg Tablet PO 1 tab BID TAE Administration Fluticasone/Salmeterol 2 puff 04/21/25 20:00 04/23/25 07:37 Fluticasone/Salmeterol 115-21 Mcg Inhaler 1 Puff INHALATION 2 puff Q12HRT TAE Administration Umeclidinium [place] 1 puff 04/22/25 08:00 04/23/25 07:37 Umeclidinium [place] 62.5 Mcg Ellipta INHALATION 1 puff DAILYRT TAE Administration Labs Labs: Laboratory Results - last 24 hr 04/23/25 04:51 WBC 9.9 RBC 4.52 Hgb 13.3 Hct 43.7 MCV 96.7 MCH 29.4 MCHC 30.4 L RDW 14.7 H Plt Count 213 MPV 10.2 Sodium 136 L Potassium 4.0 Chloride 96 L Carbon Dioxide 38 H Anion Gap 2 L BUN 29 H Creatinine 0.83 Estim Creat Clear Calc 75 Estimated GFR > 60 Glucose 91 Calcium 8.6 Total Bilirubin 0.5 AST 26 ALT 56 H Alkaline Phosphatase 62 Total Protein 6.6 Albumin 3.6 Quality VTE Prophylaxis VTE prophylaxis: pharmacologic ordered
[2025-04-23] MEDS: oxyCODONE/ACETAMINOPHEN (*CRX) 10-325 MG TABLET 1 TAB PO ×2 (09:02→17:41)
[2025-04-23] MEDS: predniSONE 40 MG, predniSONE 10 MG 50 MG PO (09:03)
[2025-04-23] MEDS: FUROSEMIDE 20 MG TABLET PO (09:03)
[2025-04-23] MEDS: FLUTICASONE PROPIONATE 0.05% NA SPR 16 GM BTL (*BKC) 2 SPRAY NASAL ×2 (09:03→15:48)
[2025-04-23] MEDS: SACUBITRIL/VALSARTAN 24-26 MG TABLET 1 TAB PO ×2 (09:03→15:48)
[2025-04-23] MEDS: FOLIC ACID 1 MG TABLET PO (09:03)
[2025-04-23] MEDS: APIXABAN 5 MG TABLET PO ×2 (09:03→20:29)
[2025-04-23] MEDS: CYANOCOBALAMIN 1,000 MCG TABLET 1000 MCG PO (09:03)
[2025-04-23] MEDS: AZELASTINE HCL NASAL 0.1% 137 MCG/SPR 30 ML BTL 1 SPRAY NASAL (20:29)
[2025-04-24] VITALS (13 sets, daily range): BP systolic 131–135; BP diastolic 51–86; PULSE 77–121; RESP 20–24; TEMP 36.3–36.6; O2SAT 92–96
[2025-04-24] MEDS: IPRATROPIUM 0.5 MG/ALBUTEROL SULFATE 2.5 MG (BASE) AMPUL.NEB 3 ML INHALATION ×4 (01:54→20:23)
[2025-04-24] MEDS: oxyCODONE/ACETAMINOPHEN (*CRX) 10-325 MG TABLET 1 TAB PO ×3 (02:05→21:51)
[2025-04-24 05:51] LABS: Hematocrit 41.2 % (37.0-47.0); Hemoglobin 12.7 g/dL (12.0-15.0); Mean Corpuscular HGB Conc 30.8 g/dl (32-36); Mean Corpuscular Hemoglobin 29.8 pg (26-34); Mean Corpuscular Volume 96.7 fl (80-100); Platelet Count Result 211 k/mm3 (150-375); Red Blood Count 4.26 M/mm3 (4.2-5.4); White Blood Count 9.3 K/mm3 (4.5-10.0)
[2025-04-24 06:15] LABS: Alanine Aminotransferase 45 U/L (6-35); Albumin Level 3.4 g/dL (3.5-5.1); Alkaline Phosphatase 58 U/L (38-126); Anion Gap 2 mmol/L (4-12); Aspartate Amino Transferase 23 U/L (14-36); Bilirubin,Total 0.3 mg/dL (0.2-1.3); Blood Urea Nitrogen 29 mg/dL (7-17); Calcium 8.3 mg/dL (8.4-10.2); Carbon Dioxide 36 mmol/L (22-30); Chloride 98 mmol/L (98-107); Estimated CRCL calculation 76 ml/min; Estimated Glomerular Filt Rate > 60; Glucose 102 mg/dL (65-110); Potassium 4.0 mmol/L (3.4-5.0); Sodium 136 mmol/L (137-145); Total Protein 6.2 g/dL (6.3-8.2)
[2025-04-24] MEDS: UMECLIDINIUM BROMIDE 62.5 MCG ELLIPTA 1 PUFF INHALATION (08:04)
[2025-04-24] MEDS: FLUTICASONE/SALMETEROL 115-21 MCG INHALER 1 PUFF 2 PUFF INHALATION ×2 (08:04→20:23)
[2025-04-24] MEDS: APIXABAN 5 MG TABLET PO ×2 (10:22→20:17)
[2025-04-24] MEDS: FOLIC ACID 1 MG TABLET PO (10:22)
[2025-04-24] MEDS: predniSONE 40 MG, predniSONE 10 MG 50 MG PO (10:23)
[2025-04-24] MEDS: CYANOCOBALAMIN 1,000 MCG TABLET 1000 MCG PO (10:23)
[2025-04-24] MEDS: SACUBITRIL/VALSARTAN 24-26 MG TABLET 1 TAB PO ×2 (10:24→16:57)
[2025-04-24] MEDS: FUROSEMIDE 20 MG TABLET PO (10:24)
--- NOTE | 2025-04-24 13:48 | P.PNIM_ITS ---
Progress Note: A&P Assessment and Plan (1) COPD (chronic obstructive pulmonary disease): Qualifiers: COPD type: unspecified COPD Qualified Code(s): J44.9 - Chronic obstructive pulmonary disease, unspecified Code(s): J44.9 - Chronic obstructive pulmonary disease, unspecified Status: Chronic Assessment and Plan: Increased dyspnea with slight productive cough starting 5 days HEEL [employer]. ABG unremarkable Chest x-ray with no acute cardiopulmonary findings. Chest CT showed mild emphysema - Duonebs q6H and Albuterol q4H prn - Continue baseline controller medication Symbicort 160/4.5 and Incruse/umeclidinium 62.5 mcg per puff, LAMA. - Received 60 mg prednisone x1 in the ED, decreased to 40 mg daily S patient believes is causing her to feel rattled and anxious - Viral panel negative. Extended respiratory pathogen panel pending. - Monitor vital signs, I&Os, neuro status and patient is a fall risk - Monitor serum electrolytes, cultures and CBC - Monitor Oxygen saturation, Oxygen via NC; wean oxygen as tolerated, keep SpO2 greater than 88 - Pulmonary consult for further recommendations Wants to have the option of nebulized albuterol and ipratropium at home in the event of decompensation. At discharge, will send nebulized ipratropium which she has the option of using with nebulized albuterol however she should not use ipratropium on the same day that she uses Incruse, long acting anticholinergic. This is overlap. Both of these medications can exacerbate her anxiety. 04/24/2025: Patient believes her breathing is improved when walking around she gets very winded. Has some pursed lips breathing during exam. Will monitor another day. (2) Incidental pulmonary nodule: Code(s): R91.1 - Solitary pulmonary nodule Status: Inactive Assessment and Plan: Chest CT with 14 mm right upper lobe pulmonary nodule suspicious for primary bronchogenic carcinoma. Patient again states she does not want further testing and does not plan on receiving any interventions in terms of the pulmonary nodule (3) CHF (congestive heart failure), NYHA class I: Qualifiers: Congestive heart failure type: systolic Congestive heart failure chronicity: chronic Qualified Code(s): I50.22 - Chronic systolic (congestive) heart failure Code(s): I50.9 - Heart failure, unspecified Status: Acute Assessment and Plan: Most recent echo on 07/03/2024 with ejection fraction of 45%. Patient does have a prescription for 20 mg furosemide b.i.d. p.r.n. for swelling. Patient does not take it because it gives her ?cotton mouth.? - BNP slightly elevated - Chest XR and CT non concerning for edema or effusions - Echo 07/03/24: LVEF 45% with grade I diastolic dysfunction - Received 20 mg IV lasix in the ED x1, continue 20 mg lasix PO daily - Continue entresto daily and bisoprolol 5 mg daily - Monitor vital signs, I&Os, BUN/creatinine, daily weights, neuro status and patient is a fall risk - Monitor serum electrolytes, Keep serum Potassium>4 and serum Magnesium>2 and CBC Appears euvolemic. Continue to monitor volume status. (4) Anxiety: Code(s): F41.9 - Anxiety disorder, unspecified Status: Chronic Assessment and Plan: Patient has a history of anxiety and has been offered medications by her PCP in the past but she refused. 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 because she has ?asthma attacks? every time she stands up. -PT/OT eval, recommending home health - Patient agreeable and this is being set up per care coordination (6) Atrial fibrillation: Qualifiers: Atrial fibrillation type: paroxysmal Qualified Code(s): I48.0 - Paroxysmal atrial fibrillation Code(s): I48.91 - Unspecified atrial fibrillation Status: Acute Assessment and Plan: Chronic, currently in sinus rhythm as seen on EKG on admission - Continue bisoprolol and eliquis Time Spent With Patient Time with patient: 25 - 35 minutes Subjective Date/time seen: 04/24/25 13:48 Interval history: No major acute overnight events. Patient does report she feels anxious and she thinks due to the prednisone. She feels short of breath after getting up and walking around. Denies wheezing, cough, sputum production, fever, chest pain. Review of Systems Review of Systems: All systems reviewed & are unremarkable except as noted in HPI and below (Subjective) Exam Const: General: comfortable and no acute distress Other: A&O x3 HENMT: Mouth: Yes moist mucous membranes Eyes: Pupils: Equal, round and reactive pupils present Neck: Neck: supple Resp: Effort & Inspection: normal respiratory effort Auscultation: clear to auscultation bilaterally Cardio: Rate: regular rate Rhythm: regular rhythm GI: Inspection: non-distended GI Palp: Yes Soft to palpation Neuro: Motor exam (neuro): 5/5 motor strength present throughout Extrem: General: no edema Objective Data Vital Signs Vital Signs: Vital Signs - 24 hr 04/23/25 14:05 04/23/25 14:15 04/23/25 20:05 Temperature Pulse Rate 85 82 97 Respiratory Rate 20 18 22 H Blood Pressure Pulse Oximetry Oxygen Delivery Oxygen Flow Rate 04/23/25 20:06 04/23/25 20:14 04/23/25 20:26 Temperature 97.3 F L Pulse Rate 99 94 Respiratory Rate 22 H 20 Blood Pressure 121/46 L Pulse Oximetry 95 94 Oxygen Delivery Room Air Oxygen Flow Rate 04/24/25 01:56 04/24/25 02:01 04/24/25 05:46 Temperature 97.9 F Pulse Rate 86 87 79 Respiratory Rate 20 20 20 Blood Pressure 135/51 L Pulse Oximetry 96 Oxygen Delivery Oxygen Flow Rate 04/24/25 08:00 04/24/25 08:04 04/24/25 08:06 Temperature Pulse Rate 77 Respiratory Rate 20 Blood Pressure Pulse Oximetry 95 Oxygen Delivery Room Air Nasal Cannula Oxygen Flow Rate 2 04/24/25 08:10 Temperature Pulse Rate 80 Respiratory Rate 20 Blood Pressure Pulse Oximetry Oxygen Delivery Oxygen Flow Rate Intake/Output Intake/Output: Intake & Output 04/21/25 04/22/25 04/23/25 04/24/25 22:59 23:59 23:59 23:59 Intake Total 600 1070 780 977 Output Total 400 2 Balance 200 1068 780 977 Meds/Results Medications: Active Medications Generic Name Dose Route Start Last Admin Trade Name Freq PRN Reason Stop Dose Admin Acetaminophen 650 mg 04/21/25 12:46 Acetaminophen 325 Mg Tablet PO Q4H PRN Mild Pain (1-3) or Fever Albuterol 2 puff 04/21/25 14:55 Albuterol Sulfate (*Sp) Aerosol 1 Puff INHALATION Q4H PRN Shortness Of Breath Albuterol/Ipratropium 3 ml 04/21/25 14:00 04/24/25 08:03 Ipratropium 0.5 Mg/Albuterol Sulfate 2.5 Mg (Base) Ampul.Neb 3 Ml INHALATION 3 ml Q6HRT TAE Administration Apixaban 5 mg 04/21/25 21:00 04/24/25 10:22 Apixaban 5 Mg Tablet PO 5 mg Q12HR TAE Administration Azelastine HCl 1 spray 04/21/25 21:00 04/23/25 20:29 Azelastine Hcl Nasal 0.1% 137 Mcg/Spr 30 Ml Btl NASAL 1 spray QHS TAE Administration Bisoprolol Fumarate 5 mg 04/24/25 21:00 Bisoprolol Fumarate 5 Mg Tablet PO HS TAE Cyanocobalamin 1,000 mcg 04/22/25 09:00 04/24/25 10:23 Cyanocobalamin 1,000 Mcg Tablet PO 1,000 mcg QAM TAE Administration Fluticasone Propionate 2 spray 04/21/25 17:00 04/24/25 10:25 Fluticasone Propionate 0.05% Na Spr 16 Gm Btl (*Bkc) NASAL Not Given BID TAE Folic Acid 1 mg 04/22/25 09:00 04/24/25 10:22 Folic Acid 1 Mg Tablet PO 1 mg DAILY TAE Administration Furosemide 20 mg 04/22/25 09:00 04/24/25 10:24 Furosemide 20 Mg Tablet PO 20 mg DAILY TAE Administration Hydroxyzine HCl 25 mg 04/21/25 14:36 04/24/25 08:52 Hydroxyzine Hcl 25 Mg Tablet PO 25 mg Q6H PRN Administration Anxiety Ondansetron HCl 4 mg 04/21/25 12:46 Ondansetron Inj 4 Mg/2 Ml Vial IV PUSH Q4H PRN Nausea Oxycodone/Acetaminophen 1 tab 04/21/25 15:47 04/24/25 02:05 Oxycodone/Acetaminophen (*Crx) 10-325 Mg Tablet PO 1 tab Q8H PRN Administration Pain 4-6 Perflutren Lipid Microsphere 0 ml 04/21/25 15:52 Perflutren Lipid Microspheres 1.5 Ml Vial Diluted To 10 Ml Total Volume IV PUSH 04/24/25 15:52 ONCE PRN adequate visualization Protocol Prednisone 40 mg/ Prednisone 50 mg 04/22/25 08:00 04/24/25 10:23 10 mg PO 50 mg DAILY@0800 TAE Administration Sacubitril/Valsartan 1 tab 04/21/25 17:00 04/24/25 10:24 Sacubitril/Valsartan 24-26 Mg Tablet PO 1 tab BID TAE Administration Fluticasone/Salmeterol 2 puff 04/21/25 20:00 04/24/25 08:04 Fluticasone/Salmeterol 115-21 Mcg Inhaler 1 Puff INHALATION 2 puff Q12HRT TAE Administration Umeclidinium [place] 1 puff 04/22/25 08:00 04/24/25 08:04 Umeclidinium [place] 62.5 Mcg Ellipta INHALATION 1 puff DAILYRT TAE Administration Labs Labs: Laboratory Results - last 24 hr 04/23/25 04/24/25 12:41 05:23 WBC 9.3 RBC 4.26 Hgb 12.7 Hct 41.2 MCV 96.7 MCH 29.8 MCHC 30.8 L RDW 14.6 H Plt Count 211 MPV 10.3 Sodium 136 L Potassium 4.0 Chloride 98 Carbon Dioxide 36 H Anion Gap 2 L BUN 29 H Creatinine 0.81 Estim Creat Clear Calc 76 Estimated GFR > 60 Glucose 102 Calcium 8.3 L Total Bilirubin 0.3 AST 23 ALT 45 H Alkaline Phosphatase 58 Total Protein 6.2 L Albumin 3.4 L Nasal RSV Type A (PCR) Cancelled Nasal RSV Type B (PCR) Cancelled Chlamy pneumoniae PCR Cancelled Adenovirus DNA Cancelled Human Bocavirus (CHELA) Cancelled Coronavirus Type OC43 Cancelled Coronavirus Type HKU1 Cancelled Coronavirus Type 229E Cancelled Coronavirus Type NL63 Cancelled Human Metapneumovir PCR Cancelled Influenza A (PCR) Cancelled Influenza A (H1) RNA Cancelled Influenza A (H3) PCR Cancelled M. pneumoniae DNA Cancelled Parainfluenza PCR Cancelled Parainfluenza 2 (PCR) Cancelled Parainfluenza 3 RNA (PCR) Cancelled Parainfluenza 4 (PCR) Cancelled Rhino/Enterovirus (CHELA) Cancelled SARS-CoV-2 RNA (RT-PCR) Cancelled Influenza Type B (PCR) Cancelled Misc Test Comment Cancelled
[2025-04-24] MEDS: AZELASTINE HCL NASAL 0.1% 137 MCG/SPR 30 ML BTL 1 SPRAY NASAL (20:17)
[2025-04-25] MEDS: IPRATROPIUM 0.5 MG/ALBUTEROL SULFATE 2.5 MG (BASE) AMPUL.NEB 3 ML INHALATION ×2 (02:05→08:39)
[2025-04-25 02:06] VITALS: PULSE 79; RESP 20
[2025-04-25 02:12] VITALS: PULSE 80; RESP 20
[2025-04-25 06:00] VITALS: BP 127/49; PULSE 75; RESP 22; TEMP 36.3; O2SAT 92
[2025-04-25] MEDS: oxyCODONE/ACETAMINOPHEN (*CRX) 10-325 MG TABLET 1 TAB PO (06:04)
[2025-04-25] MEDS: FLUTICASONE/SALMETEROL 115-21 MCG INHALER 1 PUFF 2 PUFF INHALATION (08:39)
[2025-04-25] MEDS: UMECLIDINIUM BROMIDE 62.5 MCG ELLIPTA 1 PUFF INHALATION (08:39)
[2025-04-25 08:40] VITALS: PULSE 92; RESP 20; O2SAT 91
--- NOTE | 2025-04-25 08:43 | P.DS_ITS ---
DS: Admitting Diagnosis Discharge Date 04/25/2025 Admitting Diagnosis Shortness of breath DS: Discharge Diagnosis Discharge Diagnosis (1) COPD (chronic obstructive pulmonary disease): Qualifiers: COPD type: unspecified COPD Qualified Code(s): J44.9 - Chronic obstructive pulmonary disease, unspecified Code(s): J44.9 - Chronic obstructive pulmonary disease, unspecified Status: Chronic DS: Summary Hospital Course Hospital Course: 65-year-old female with history of asthma/COPD patient of Dr. Potter presented to [facility] on 04/22/2025. Complains of shortness of breath. Was started on prednisone by her PCP which increases her anxiety. Marijuana use disorder. Nocturnal hypoxemia using 2 L O2 while sleeping. Diagnosis with COPD exacerbation. Respiratory viral pathogen panel negative. Treated with DuoNebs, steroids, improved significantly. History of pulmonary nodule in does not want any treatment for. History of prior tobacco abuse. Counseled about the detrimental effects of her marijuana use. She is discharged in stable condition on 04/25/2025, her Lasix has also been changed from p.r.n. to daily. Appears euvolemic. All of her questions and concerns were answered to satisfaction and her nebulizer medications have been refilled. She has been instructed not overlap Incruse and ipratropium. Adverse effects, risk and benefits discussed with the patient. She will be returning home with home health PT. follow with pulmonology and PCP within 2 weeks and 1 week respectively. Patient voices understanding. Time Spent with Patient Time attestation: Total time spent providing and/or coordinating discharge services: Time spent: Greater than 30 minutes Exam Const: General: comfortable and no acute distress HENMT: Mouth: Yes moist mucous membranes Eyes: Pupils: Equal, round and reactive pupils present Neck: Neck: supple Resp: Effort & Inspection: normal respiratory effort Auscultation: clear to auscultation bilaterally Other: Diminished lung sounds diffusely Cardio: Rate: regular rate Rhythm: regular rhythm GI: Inspection: non-distended GI Palp: Yes Soft to palpation Neuro: Motor exam (neuro): 5/5 motor strength present throughout Extrem: General: no edema DS: Data Data Completed and Pending Labs on day of discharge: Labs from last 24 hours 04/23/25 12:41 Chlamy pneumoniae PCR Not detected Adenovirus (PCR) Not detected B. pertussis DNA (PCR) Not detected B.parapertussis DNA PCR Not detected Coronavirus OC43 (PCR) Not detected Coronavirus HKU1 (PCR) Not detected Coronavirus 229E (PCR) Not detected Coronavirus NL63 (PCR) Not detected Human Metapneumovir PCR Not detected Influenza A (H1) PCR Not detected Influ A (H1/09) PCR Not detected Influenza A (H3) PCR Not detected Influenza Type A (PCR) Not detected Influenza Type B (PCR) Not detected M. pneumoniae (PCR) Not detected Parainfluenza 1 (PCR) Not detected Parainfluenza 2 (PCR) Not detected Parainfluenza 3 (PCR) Not detected Parainfluenza 4 (PCR) Not detected RSV (PCR) Not detected Entero/Rhino (PCR) Not detected SARS-CoV-2 (PCR) Not detected Discharge Plan Discharge Attending physician on discharge: Michaela Pulliam Consulting providers: Silvana Rivera; Dorothy Potter Discharging Clinician: Michaela Pulliam Patient Disposition: Home with Home Health Service Activity: may shower Diet: heart healthy Discharge Instructions: Per Care Coordination: [facility] ([phone]) will call to schedule your initial visit. Patient to follow up as an outpatient with Cardio-pulmonary rehab [phone]. They will contact you to schedule appointments. As discussed, use your baseline controller medications as prescribed including Symbicort and Incruse. For rescue medications, may use albuterol nebulizer. Do not use ipratropium nebulizer on the same day use your Incruse inhaler. Patient Instructions: Antibiotic Form, Apixaban (By mouth) Patient Language: [place] Stand Alone Forms: General Discharge Information Follow-up/Referrals: Dorothy Potter MD [Physician, Pulmonology] Referral Note: As scheduled or within 2 weeks Danisha Yousif DO [Primary Care Provider, Family Practice] Referral Note: Within 7 days for COPD exacerbation Discharge Medications: New furosemide 20 mg Tablet 20 mg PO DAILY Qty: 30 0RF Continued fluticasone propionate 50 mcg/actuation spray,suspension 2 spray intranasal BID Rx Instructions: administer into each nostril Entresto 24-26 mg tablet 1 tablet PO BID azelastine [Astepro Allergy] 205.5 mcg (0.15 %) spray,non-aerosol 1 spray intranasal QHS Qty: 30 11RF Rx Instructions: administer into each nostril cholecalciferol (vitamin D3) 1,250 mcg (50,000 unit) capsule 1,250 mcg PO MONTHLY Qty: 3 4RF folic acid 1 mg tablet 1 mg PO DAILY Qty: 30 5RF umeclidinium 62.5 mcg/actuation blister with device 1 inh inhalation DAILY Qty: 90 3RF Eliquis 5 mg tablet 5 mg PO BID bisoprolol fumarate 5 mg Tablet 5 mg PO DAILY budesonide-formoterol [Symbicort] 160-4.5 mcg/actuation Hfa Aerosol Inhaler 2 puff INHALATION Q12H albuterol sulfate 2.5 mg /3 mL (0.083 %) solution for nebulization 2.5 mg inhalation Q6H PRN (Reason: shortness of breath or wheezing) Qty: 75 0RF ipratropium bromide 0.02 % solution 2.5 ml inhalation Q6H PRN (Reason: shortness of breath or wheezing) Qty: 75 0RF cyanocobalamin (vitamin B-12) [Vitamin B-12] 1,000 mcg Tablet 1,000 mcg PO QAM Qty: 30 0RF albuterol sulfate 90 mcg/actuation HFA aerosol inhaler See Rx Instructions .ROUTE .COMPLEX Qty: 6.7 3RF Dose Instruction: INHALE 1 PUFF EVERY 4 TO 6 HOURS NEEDED Rx Instructions: INHALE 1 PUFF EVERY 4 TO 6 HOURS NEEDED oxycodone-acetaminophen 10-325 mg tablet 1 tablet PO Q8H PRN (Reason: Pain) Qty: 90 0RF Discontinued triamcinolone acetonide 0.025 % ointment 1 applic topical BID PRN (Reason: psoriatic plaques) Qty: 454 0RF [id number]-[id number] [Excedrin Extra Strength] 250-250-65 mg tablet 1 tablet PO .PRN PRN (Reason: pain) furosemide 20 mg tablet 20 mg PO BID PRN (Reason: edema) Qty: 180 1RF azithromycin [Zithromax] 250 mg tablet See Rx Instructions PO .COMPLEX Qty: 6 0RF Rx Instructions: For 250 mg dose pack: take 500 mg today (day 1), then 250 mg for 4 days (days 2-5) PO prednisone 20 mg tablet 40 mg PO DAILY 5 Days Qty: 10 0RF doxycycline monohydrate 100 mg capsule 100 mg PO DAILY Qty: 20 0RF Date of admission: 04/22/25 10:23 Primary Care Provider: Danisha Yousif Admitting Provider: Neo Azar Attending physician on admission: Neo Azar Condition: Stable Hospitalist MIPS Heart Failure (Exclusion) Patient has history of Heart Transplant or Left Ventricular Assistive Device?: No IF YES, STOP HERE Heart Failure (Qualifier) Patient has current or prior documentation of LVEF less than or equal to 40%, or mod/servere depressed LVSF?: No IF NO, STOP HERE
[2025-04-25 08:47] VITALS: PULSE 93; RESP 20
[2025-04-25] MEDS: APIXABAN 5 MG TABLET PO (09:02)
[2025-04-25] MEDS: CYANOCOBALAMIN 1,000 MCG TABLET 1000 MCG PO (09:02)
[2025-04-25] MEDS: SACUBITRIL/VALSARTAN 24-26 MG TABLET 1 TAB PO (09:02)
[2025-04-25] MEDS: FUROSEMIDE 20 MG TABLET PO (09:02)
[2025-04-25] MEDS: FOLIC ACID 1 MG TABLET PO (09:03)
== END 2025-04-25 09:40 | disposition home health service (06) | DRG 191 ==
LOC: ANHED 12:57 → ANH3MED 13:48
PROVIDERS: Internal Medicine Critical Care Medicine; Nurse Practitioner Adult Health; Student in an Organized Health Care Education/Training Program; Admitting Provider Internal Medicine; Emergency Provider Emergency Medicine; PCP Family Medicine; Visit Provider General Practice
DX: J44.1 Chronic obstructive pulmonary disease with (acute) exacerbation (principal); I48.20 Chronic atrial fibrillation, unspecified; I50.22 Chronic systolic (congestive) heart failure; F41.9 Anxiety disorder, unspecified; R91.1 Solitary pulmonary nodule; R53.81 Other malaise; I25.10 Atherosclerotic heart disease of native coronary artery without angina pectoris; E66.01 Morbid (severe) obesity due to excess calories; I44.7 Left bundle-branch block, unspecified; I11.0 Hypertensive heart disease with heart failure; F31.9 Bipolar disorder, unspecified; M81.0 Age-related osteoporosis without current pathological fracture; M19.90 Unspecified osteoarthritis, unspecified site; E78.5 Hyperlipidemia, unspecified; M51.26 Other intervertebral disc displacement, lumbar region; L30.9 Dermatitis, unspecified; F12.90 Cannabis use, unspecified, uncomplicated; Z86.73 Personal history of transient ischemic attack (TIA), and cerebral infarction without residual deficits; Z87.891 Personal history of nicotine dependence; Z90.49 Acquired absence of other specified parts of digestive tract
CPT/HCPCS: 36415; 80053; 83880; 85025; 85027; 87633; 93306; 94640; 96374; 97162; 97165; 99285; A9270; G0378; J1938; J7512